=== PATIENT | female | born 1950 ===

== ENCOUNTER 2025-02-13 00:13 | Inpatient (IN) | payer OTHER, SELFPAY ==
[2025-02-12] VITALS (31 sets, daily range): BP systolic 159–259; BP diastolic 64–119
--- NOTE | 2025-02-12 19:38 | ED.GENMED ---
History of Present Illness
General
Chief Complaint: Fainting/Passed Out
Source: patient and family
Time Seen by Provider: 02/12/25 19:20
History of Present Illness
History of Present Illness:
74-year-old female presents the emergency department after having a syncopal episode just prior to presentation. She was feeling perfectly well when she took a shower today. She got out of the shower and was starting to dress herself when she felt
nauseous and tired. Her next memory is waking up on the floor. Her daughter, who is bedside in whom I also interviewed states that she heard her mother fall and ran to the bathroom. Within a second or 2 she regained consciousness. There was no
tonic-clonic activity noted and no incontinence. Patient was fully oriented upon awakening. Patient denies hitting her head. She denies any complaints at this time with the exception of feeling slightly tired. She denies headache, neck pain,
chest pain, palpitations, dyspnea, abdominal pain, dizziness, fever, chills, or other complaints.
Past History
Past History
ED Past Medical History: HTN, Hypercholesterolemia and Other (Anemia)
Social History
Tobacco: Non-smoker
Alcohol: None
Drug: None
Living: with family
Phy Exam
Physical Exam
Physical Exam:
GENERAL: Alert , in no apparent distress
EYE: pupils equal and reactive, EOMI, no nystagmus, no photophobia
NECK: Supple, no significant adenopathy, no midline tenderness.
ENT: o/p clr, mmm, no signs of head or facial injury noted on exam, no gordon, no raccoon.
CARDIAC: Regular rate and rhythm .
LUNGS: Clear breath sounds bilaterally, no acute respiratory distress, no wheezes/rales/rhonchi
ABDOMEN: Soft, without focal tenderness, no r/g, no cvat
NEUROLOGICAL: Alert and oriented, no focal neuro deficits, motor 5 out of 5, sensory intact, cranial nerve II to XII intact, lejrrn-[id number]-yels normal
SKIN: Warm and dry, skin intact.
MUSCULOSKELETAL: No edema, well perfused.
PSYCH: Normal and appropriate interaction.
Course
Orders/Labs/Results
Orders:
Orders
02/12/25 19:18
EKG [Electrocardiogram (*1)] Urgent
Reason for Study: Syncope
EKG- Treatment ONCE
02/12/25 19:37
Cardiac Monitoring- Treatment ONCE
02/12/25 19:38
CT Head W/o Iv Contrast Urgent
Comment:
Reason For Exam: syncope
02/12/25 20:12
Complete Blood Count/No Diff Urgent
Troponin I Urgent
02/12/25 20:52
Comprehensive Metabolic Panel Urgent
02/12/25 21:32
Electrocardiogram (*1) Urgent
Reason for Study: Other
Other Reason for Exam: syncope
EKG- Treatment ONCE
Nitroglycerin 100 mg/250 ml [Nitroglycerin Premix] 100 mg in 250 ml IV NOW
Initial dose in mcg/min, then titrate:: 5
Titrate to keep:: SBP < 160 mmHg
Titrate by mcg/min:: 5 mcg/min, may increase by 10 mcg/min if dose > 20 mcg/min
Frequency of titrations (minutes):: every 3-5 minutes
Maximum dose in mcg/min:: 200
Begin to taper infusion when:: Remained at goal for 2hrs
Taper by mcg/min:: 5 mcg/min
Frequency of taper (minutes) if patient maintains goal:: 30
Taper to off?: Yes
If infusion off & no longer maintaining goal:: Contact Provider
02/12/25 21:33
US Legs, Bilateral [US Periph Venous LOWER Ext Jermaine] Urgent
Comment:
Reason For Exam: syncope, consideration of dvt
02/12/25 22:00
D-Dimer Urgent
PTT Urgent
Comment: ADD ON
Urinalysis Reflex To Culture Urgent
Date Specimen was Collected: 02/12/25
Time Specimen was Collected: 21:53
Urine Microscopic Reflex Cult Urgent
Urine Culture Urgent
MAGUI Source: U
Specimen Description:
Date Specimen was Collected: 02/12/25
Time Specimen was Collected: 21:53
02/12/25 22:56
Heparin 5,200 units IV NOW STA
02/12/25 23:00
Heparin 44957 Units/250 ml 25,000 units in 250 ml IV PER PROTOCOL
Weight to be used for heparin protocol in kilograms (kg):: 65.3
Protocol:: DVT/PE
PTT Goal Range to be used:: PTT 73 to 111 seconds
Order type:: Initial
INITIAL Infusion Dose (UNITS/KG/hr) & then follow protocol:: 18 units/kg/hr
Infusion Dose in UNITS/hr & then follow protocol (UNITS/hr):: 1,200
INFUSION RATE in mL/hr & then follow protocol (mL/hr):: 12
For DVT/PE algorithm, re-bolus for low PTT?: Yes
PTT less than or equal to 64 seconds:: Re-bolus 80 units/kg (max 10,000units). Increase by 300 units/hr
(+ 3mL/hr)
PTT 64.1 to 72.9 seconds:: Re-bolus 40 units/kg (max 5,000 units). Increase by 100 units/hr
(+ 1mL/hr)
PTT 73 to 111 seconds:: Target Range. No change in rate.
PTT 111.1 to 130.9 seconds:: Decrease rate by 100 units/hr (- 1 mL/hr)
PTT 131 to 199.9 seconds:: HOLD for 1 hr. Then decrease by 200 units/hr (- 2mL/hr)
PTT greater than or equal to 200 seconds:: HOLD for 2 hrs & Notify Provider. Then decrease by 300 units/hr
(- 3mL/hr)
Lab follow-up:: Each change, PTT q6h until 2 consecutive are therapeutic. Then
PTT daily.
02/12/25 23:05
Troponin I Urgent
02/12/25 23:35
Heparin 5,200 units IV PRN PRN
02/12/25 23:36
Heparin 2,600 units IV PRN PRN
02/12/25 23:40
Insulin Aspart [NOVOLOG vial] 5 units SC NOW STA
Insulin Glargine Lantus [Lantus] 15 units Subcutaneous Insulin Syringe [Syringe-Insulin] 0 unit SC ONCE
02/12/25 23:45
Admit/Transfer Patient As Directed
Co-Sign Provider:
Level of Care: Inpatient admission
Assign to:: ICU
Physician / Group: noa
Diagnosis: hypertensnive emergency
Reason for Hospitalization: HTn
NSTEMI
Expected length of stay greater than two midnights?: Yes
ELOS- Estimated Length of Stay in days: 3
I certify the patient meets the requirements for IP care: Yes
Nicardipine 40 mg/200 ml [Cardene] 40 mg in 200 ml IV PER PROTOCOL
Initial dose in mg/hr, then titrate:: 5
Titrate to keep:: SBP 140 - 160 mmHg
Titrate by mg/hr:: 2.5 mg/hr
Frequency of titrations (minutes):: 5-15 minutes
Maximum dose in mg/hr:: 15
Begin to taper infusion when:: Remained at goal for 2hrs
Taper by mg/hr:: 2.5 mg/hr
Frequency of taper (minutes) if patient maintains goal:: every 15-30 minutes
Taper to off?: Yes
If infusion off & no longer maintaining goal:: Contact Provider
02/12/25 23:46
Code Status As Directed
Resuscitation Status: Full Code
PRN Pain Medication Management As Directed
May give lesser potent ordered pain med per pt: Yes
preference::
Protocol:: Medication orders for pain may be administered in a
manner that supports deferring to patient preference
when the pt is:
- Requesting an ordered lesser potent pain medication.
Least to most potent pain medications are defined
as: acetaminophen < NSAID < tramadol < opioids
(morphine, oxycodone, hydromorphone).
- Requesting a lesser dose of the same medication IF
ORDERED.
- Requesting a less intrusive route of administration
if both routes are prescribed by the provider (PO <
IV).
02/12/25 23:58
Sodium Zirconium Cyclosilicate [Lokelma] 5 gram PO NOW STA
02/13/25 00:57
Acetaminophen [Tylenol] 650 mg PO Q4HPRN PRN
Bisacodyl [Dulcolax] 10 mg RECTAL [id number] PRN
Dextrose 50%-Water [Dextrose 50% Syringe] 12.5 grams IV [id number] PRN
Docusate W/Senna [Senokot-S] 1 tablet PO BIDPRN PRN
Glucagon [GlucaGen] 1 mg IM PRN PRN
Polyethylene Glycol Powder [Miralax] 17 grams PO DAILYPRN PRN
02/13/25 00:57
Echo 2D MMode Color/Doppler Routine
Reason for Study: sob
CARDIOLOGY CONSULT Routine
Consulting Provider: Micha Lazcano
Was physician already notified: No
Reason for consult: HTN urgency, trop elevated
Consult Notification Routine
Specialty to Notify: Cardiology
Date consulting provider notified: 02/13/25
Time consulting provider notified: 09:00
Notified:: Service
Rn Oncology Clinical Consult Routine
Consulting Provider: Renetta Bojorquez
Was physician already notified: Yes
VQ Scan [NM Lung Scan Vent/perf ] Routine
Comment:
Reason For Exam: sob
Heparin Protocol- PTT Orders As Directed
PTT per Heparin protocol: -Obtain CBC and baseline PTT - if not already collected.
-Obtain PTT 6 hours from start of infusion. Then, every 6 hours until 2 consecutive
PTT's are therapeutic. Then, PTT Daily.
-With each rate change, obtain PTT every 6 hours until 2 consecutive PTT's are
therapeutic. Then, PTT Daily.
Activity As Directed
Activity Level: As Tolerated
Bedside Glucose Monitoring As Directed
Frequency: AC&HS
Additional Instructions:: Change to q6h if pt on TPN, tube feeding or not eating
Neurological Checks As Directed
Frequency: Per unit guidelines
Notify MD As Directed
Notify physician if: PTT is greater than or equal to 200.
Vital Signs As Directed
Frequency: Per unit guidelines
Ot Eval And Treat Routine
Pt Eval And Treat Routine
Activity Level: As Tolerated
02/13/25 04:56
Basic Metabolic Panel IN AM
Cardiovascular Evaluation IN AM
Complete Blood Count/No Diff IN AM
Glycohemoglobin (HgbA1c) IN AM
02/13/25 06:00
EKG [Electrocardiogram (*1)] IN AM
Reason for Study: Chest Pain
2000 calorie (17 carb) Diabetic
At Your Request: Full Participation
02/13/25 07:30
Insulin Aspart Corrective Low [Novolog Flexpen-Low Resistance] See Protocol SC AC
02/13/25 08:00
Carvedilol [Coreg] 12.5 mg PO BID
Rosuvastatin Calcium [Crestor] 20 mg PO DAILY
02/14/25 06:00
Basic Metabolic Panel IN AM
Complete Blood Count/No Diff IN AM
Complete Blood Count/No Diff Q2D
Comment: notify provider: Platelet count < 130,000 or decrease by 50% from baseline
02/15/25 06:00
Basic Metabolic Panel IN AM
Complete Blood Count/No Diff IN AM
02/16/25 06:00
Basic Metabolic Panel IN AM
Complete Blood Count/No Diff IN AM
Complete Blood Count/No Diff Q2D
Comment: notify provider: Platelet count < 130,000 or decrease by 50% from baseline
02/18/25 06:00
Complete Blood Count/No Diff Q2D
Comment: notify provider: Platelet count < 130,000 or decrease by 50% from baseline
02/20/25 06:00
Complete Blood Count/No Diff Q2D
Comment: notify provider: Platelet count < 130,000 or decrease by 50% from baseline
02/22/25 06:00
Complete Blood Count/No Diff Q2D
Comment: notify provider: Platelet count < 130,000 or decrease by 50% from baseline
02/24/25 06:00
Complete Blood Count/No Diff Q2D
Comment: notify provider: Platelet count < 130,000 or decrease by 50% from baseline
02/26/25 06:00
Complete Blood Count/No Diff Q2D
Comment: notify provider: Platelet count < 130,000 or decrease by 50% from baseline
02/28/25 06:00
Complete Blood Count/No Diff Q2D
Comment: notify provider: Platelet count < 130,000 or decrease by 50% from baseline
Abnormal Lab Results
02/12/25 02/12/25 02/12/25
20:12 20:52 22:00
RBC 3.85 L 10^6/uL
(4.20-5.40)
Hgb 11.2 L g/dL
(12.0-16.0)
Hct 32.7 L %
(37.0-47.0)
D-Dimer 1.06 H ug/mlFEU
(0.00-0.50)
Potassium 5.6 H mmol/L
(3.5-5.1)
BUN 30 H mg/dl
(7-17)
Creatinine 2.1 H mg/dL
(0.6-1.0)
Glucose 312 H mg/dl
(70-99)
AST 62 H U/L
(14-36)
ALT 49 H U/L
(0-35)
Troponin I 0.095 H* ng/ml
Leukocyte Esterase Rfl 1+ A
(Negative)
Urine Bacteria (Reflex) Few A
(Negative)
Urine Glucose 3+ A
(Negative)
Urine Albumin (Reflex) 3+ A
(Neg - Trace)
POC Glucose
02/12/25 02/12/25
23:05 23:50
RBC
Hgb
Hct
D-Dimer
Potassium
BUN
Creatinine
Glucose
AST
ALT
Troponin I 0.158 H* D ng/ml
Leukocyte Esterase Rfl
Urine Bacteria (Reflex)
Urine Glucose
Urine Albumin (Reflex)
POC Glucose 276 H mg/dl
(70-99)
02/12/25 20:12
02/12/25 20:52
Vital Signs
Initial and Last Documented VS:
Initial Vital Signs
Temp Pulse Resp Pulse Ox
97.6 F 87 22 100
02/12/25 19:20 02/12/25 19:20 02/12/25 19:20 02/12/25 19:20
Last Documented Vital Signs
Temp Pulse Resp BP Pulse Ox
97.6 F 64 11 114/62 96
02/13/25 08:21 02/13/25 10:26 02/13/25 07:00 02/13/25 10:26 02/13/25 07:00
*Pulse Oximetry
SaO2: 99
Oxygen Mode of Delivery: Room air
Patient hypoxic: no
*Critical Care Note
Total Time (30-74mins, 75-104mins- exclusive of procedures): 35
Update Note
Update Note:
Patient presents to the Emergency Department with __syncope
Number and Complexity of Problems Addressed at the Encounter
� Chronic conditions affecting care:
� Acute Exacerbation and/or Progression of Chronic Illness:
� Differential Diagnosis includes: But not limited to vasovagal events, seizure, dehydration, electrolyte abnormality, etc. etc. etc.
Amount and/or Complexity of Data to be Reviewed and Analyzed
� I performed an independent evaluation of and my interpretation is:
EKG: Read by me, normal sinus rhythm with bigeminy, no acute ischemia. Repeat ECG at 2130, normal sinus rhythm, LVH, no acute ischemia noted.
CT:No acute intracranial abnormality noted.
Mild atrophy.
Mild periventricular small vessel ischemic disease.
Old left thalamic lacunar infarct
Xrays:
Laboratory Studies: Renal insufficiency, elevated D-dimer right, hyperglycemia, troponin abnormally elevated
Other:
� Review of other/old records reveals:
� Clinical information was obtained by an independent historian: Sister who is bedside. I also called and spoke to patient's daughter, Abbie, who is an ER physician.
� Prescriptions/Medications Considered but not given:
� Further testing considered but not performed:Consideration of CT to r/o pe, however given poor GFR, this exam deferred.
Risk of Complications and/or Morbidity or Mortality of Patient Management
� Social determinants of health affecting care:
� Discussion with other providers (PCP, Hospitalists, Consultants, etc):
� Escalation of care including admission/observation vs risk of discharge considered: Elevated troponin noted. ECG being repeated now. Upon reassessment, patient noted to be quite hypertensive. She denies any symptoms such as
chest pain, dyspnea, headache, etc. Nitroglycerin drip started. Patient is remarkably symptom-free despite her syncopal event and elevated troponin. Consideration for PE is the etiology however unable to perform CT based on her poor GFR. There
are some bilateral lower extremities ordered. Consideration for heparin drip in anticipation of VQ scan which is likely to be available in the morning. Events could be related to hypertensive urgency.
11:13 PM patient now on a nitroglycerin drip with some improvement in her blood pressure measurements. I have reexamined the patient multiple times, and she continues to deny any symptoms. Ultrasound bilateral lower extremity pending results.
D-dimer noted to be elevated. Although patient denies dyspnea, she did have a syncopal event with troponin elevation, consideration for PE, heparin drip started. Case discussed with hospitalist for admission. She will need to be closely observed
overnight likely echo in a.m. Case was again discussed with patient's daughter in great detail and second ECG was transmitted to her via text for her review as well.
ED Attending Note
-
Portions of this chart may have been created with voice recognition software.� Occasional wrong word or��sound alike� substitutions may have occurred due to the inherent limitations of voice recognition software.
Discharge Plan
Departure
Patient Disposition: Admit
Date of Disposition: 02/12/25
Time of Disposition: 23:10
Presentation/result/management discussed w/ accepting MD/DO: Hospitalist
Condition: Fair
Discharge Problem:
Syncope
Interventions
Interventions:
*Risk Screen - Suicide Last Done: 02/13/25 01:26
*General Assessment Last Done: 02/12/25 19:20
*Neglect/Abuse Screening Last Done: 02/12/25 19:20
*ED- Fall Risk Assessment Last Done: 02/13/25 01:17
*ED COVID-19 Vaccine History Last Done: 02/13/25 01:26
*Nursing Disposition Last Done: 02/13/25 01:17
ED- Cardiac Assessment Last Done: 02/12/25 19:27
ED- Neurological Assessment Last Done: 02/12/25 19:27
Discharge Date and Time
Discharge Date/Time: 02/13/25 01:19
[2025-02-12 20:17] LABS: Hematocrit 32.7 % (37.0-47.0); Hemoglobin 11.2 g/dL (12.0-16.0); Mean Corp Hgb Conc. 34.3 g/dL (33.0-37.0); Mean Corpuscular Volume 84.9 fL (81.0-99.0); Platelet Count 201 10^3/uL (130-400); Red Cell Dist. Width 13.5 % (11.5-14.5)
[2025-02-12 20:45] LABS: Troponin I 0.095 ng/ml
[2025-02-12 21:21] LABS: ALT (SGPT) 49 U/L (0-35); AST (SGOT) 62 U/L (14-36); Albumin 4.4 g/dl (3.5-5.0); Alkaline Phosphatase 126 U/L (38-126); Blood Urea Nitrogen 30 mg/dl (7-17); Calcium 9.1 mg/dl (8.4-10.2); Carbon Dioxide 27 mmol/L (22-30); Chloride 104 mmol/L (98-107); Estimated Creatinine Clearance 18 ml/min; Glucose 312 mg/dl (70-99); Potassium 5.6 mmol/L (3.5-5.1); Sodium 137 mmol/L (135-145); Total Protein 7.6 g/dl (6.3-8.2); eGFR 24.27
[2025-02-12] MEDS: NITROGLYCERIN PREMIX 250 IV (21:53)
[2025-02-12 22:05] LABS: Urine Character Clear (Clear)
[2025-02-12 22:11] LABS: Urine Squamous Cell 0-2 /LPF (Few)
[2025-02-12 22:12] LABS: Urine Red Blood Cell 0-2 /HPF (0-2)
[2025-02-12 22:18] LABS: D-Dimer 1.06 ug/mlFEU (0.00-0.50)
[2025-02-12 23:09] LABS: APTT 33.6 Sec (23.4-35.0)
--- NOTE | 2025-02-12 23:21 | HPS.HSE ---
Family Physician
-
Family Physician: Bernadette Yancey, DO
Chief Complaint
-
syncope
History of Present Illness
74-year-old with past medical history for type 2 diabetes, hypertension, hyperlipidemia, CKD presented to us with syncopal episode at home. Patient took shower. As she was getting dressed in the bathroom, she felt nauseous and remember anything
afterwards. Daughter heard the fall. She found mother on the floor. She was passed out for 5 to 10 seconds. Patient denied any prior headache dizzy. Fever chills cough congestion. Patient denied any chest pain or short of breath. Patient
denied any abdominal pain, nausea, vomiting or diarrhea. Patient denied dysuria hematuria.
Upon arrival she was noted to have elevated Trope, elevated D-dimer. Patient was also noted hypertensive urgency. Initiated on nitro as well as heparin. Admitting for further management
Medical History
Past Medical History
Past Medical History: Reports Other
Additional Past Medical History:
Cervical radiculopathy
Hypertension
Fatty liver
Lower back pain
Hyperlipidemia
Diabetic neuropathy
Type 2 diabetes
Bilateral carpal tunnel syndrome
Past Surgical History: Reports None
Social History
Tobacco: Non-smoker
Alcohol: None
Drug: None
Living: With Family
Family History
Family History: Not pertinent
Allergies / Home Medications
Allergies reflects when Allergies were last updated in [facility].
Home Medications with original date entered in [facility]
Allergy/Medication List:
Allergies
Allergy/AdvReac Type Severity Reaction Status Date / Time
No Known Allergies Allergy Verified 02/12/25 19:19
Review of Systems
-
Constitutional: Reports No Symptoms
EENT: Reports No Symptoms
Respiratory: Reports No Symptoms
Cardiac: Reports No Symptoms
Abdomen/GI: Reports No Symptoms
: Reports No Symptoms
Musculoskeletal: Reports No Symptoms
Skin: Reports No Symptoms
Neurological: Reports No Symptoms
Endocrine: Reports No Symptoms
Hematologic/Lymphatic: Reports No Symptoms
Psych: Reports No Symptoms
Physical Exam
Vital Signs
Vital Signs
Temp Pulse Resp BP Pulse Ox
97.6 F 66 15 159/83 96
02/12/25 19:20 02/12/25 22:55 02/12/25 22:55 02/12/25 22:55 02/12/25 22:55
Physical Exam
General: Well Developed, Well Nourished and No Apparent Distress
HEENT: NormoCephalic, Moist mucous membranes and Atraumatic
Respiratory: Clear
Cardiac: S1/S2 and Regular Rhythm; No Murmur or Rub
GI: Soft, Non Tender, Non Distended and Normal Bowel Sounds; No Organomegaly
Rectal: Deferred by Provider
Musculoskeletal: No Clubbing, No Cyanosis and No Edema
Skin: No Rash
Neuro: AO x 3 and Nonfocal/grossly intact
Psych: Calm
Laboratory Results
-
02/12/25 20:12
02/12/25 20:52
Laboratory Results
APTT Cancelled 02/12/25 22:56
Total Bilirubin 0.5 mg/dl (0.2-1.3) 02/12/25 20:52
AST 62 U/L (14-36) H 02/12/25 20:52
ALT 49 U/L (0-35) H 02/12/25 20:52
Alkaline Phosphatase 126 U/L (38-126) 02/12/25 20:52
Troponin I 0.095 ng/ml H* 02/12/25 20:12
Data Reviewed
-
CT Scan: Report Reviewed by me
Ultrasound: Report Reviewed by me
Lab Data: Labs Reviewed by me
Impression/Plan
-
# Hypertensive urgency
# Syncope likely secondary to hypertensive urgency
# Elevated troponin likely demand ischemia secondary to hypertensive/rule out NSTEMI
- Denied any chest pain
- EKG no acute ischemia, sinus rhythm with PVCs and pattern of bigeminy.
- Continue to trend troponin EKG
- Initiated on Cardene drip
- Head CT with no acute findings
- Hold lisinopril, Coreg continued
- PT consulted
-obtain ECHo
-cardiology consulted
# Elevated D-dimer concern for PE
-D-dimer 1.06
- Unable to obtain CT due to GFR
- IV heparin continued
- Obtain VQ scan
- Ultrasound of lower extremities negative
# Hyperkalemia/acute kidney injury likely chronic baseline unknown
- K5.6, creatinine 2.1
-monitor BMP
-lokelma in ER
# Type 2 diabetes with hyperglycemia
- Blood sugar in 300s
- Sliding scale, CHO diet
- Lantus 15 units continue
- Sliding scale
- Hold metformin
# Chronic transaminitis
- AST 62, ALT 49
- Patient denied abdominal pain
- Continue to monitor
# Hyperlipidemia
- Statin continued
# DVT prophylaxis
- On heparin
# CODE STATUS
- Full code
[2025-02-12 23:39] LABS: Troponin I 0.158 ng/ml
--- NOTE | 2025-02-12 23:42 | W.PN.UPDATE ---
Update Note
Progress Note Update
Patient seen and congestion with LOAF COUNTER. I agree with the findings on history and physical. I concur with assessment plan unless stated otherwise.
Briefly, this is a 74-year-old with past medical history of CKD with baseline creatinine that is unknown but was around 1.5 on last check several years ago, hypertension, insulin-dependent diabetes presenting to the emergency department following a
syncopal episode.
Patient walked out of the shower and then immediately felt nauseous and then collapsed to the floor. She does not remember the actual collapse. When she came back to she said that this lasted for about 10 seconds. There was no postictal
depression. There was no loss of bladder or bowel continence. There was no tonic-clonic activity. She is now alert oriented and shows no focal logical deficits. She denied having any chest pain. She denies any vomiting or diarrhea. She denies
any shortness of breath. Patient denies any history of chest pain, exertional dyspnea palpitations or lightheadedness.
On arrival in the emergency department she was hypertensive and blood pressure remains in the 200s systolic, she is afebrile with a pulse of 66. ECG shows sinus rhythm at a rate of 90 with occasional PVCs and T wave inversions in the lateral leads.
Initial troponin was 0.09 with repeat troponin of about 0.12.
CT of the head was negative, ultrasound was negative for DVT but the D-dimer is elevated. CBC is unremarkable. Electrolytes shows a potassium of 5.6 but otherwise unremarkable. BUN and creatinine at 30 and 2.1.
Hypertensive emergency -patient arriving with systolic blood pressures in the 200s and following a syncopal episode. She has elevated troponin. Picture is consistent with hypertensive emergency. CT of the head was negative. She has no focal
deficits on examination.
- Admit to ICU
- Failure of blood pressure control on nitroglycerin, will start nicardipine drip
- Continue Coreg
- Hold lisinopril
ACS -ECG shows some minor T wave changes in the inferior leads. Otherwise nonischemic. There was no obvious arrhythmia and he has no long QT.
- Repeat troponin is elevating, suspect possibility of ventricular arrhythmic episode versus acute coronary syndrome
- Aspirin 324
- Heparin drip started
- Echocardiogram in a.m.
-Lipid panel and A1c
- Currently chest pain-free
- BP control to target SBP less than 160
- Cardiology consult
Syncope -abrupt soft collapsed to the floor with loss of consciousness lasting for about 10 seconds. Elevated troponins concerning for arrhythmia which could have been induced by an ischemic process versus a primary arrhythmia
- Orthostatic vital sign
- Telemetry monitoring for the next 24-hour
- Echo as above
- Condition testing per cardiology
CKD/renal dysfunction w/ mild hyperkalemia to 5.6
- Unknown baseline, hold lisinopril for now
- Obtain most recent outpatient labs
- give lokelma
- correct hyperglycemia with insulin
Insulin-dependent diabetes -hyperglycemic to 300
- Continue sliding scale insulin
- Continue Lantus
- Check A1c
Elevated D-dimer - Likely false positive for PE.
- neg peripheral u/s for DVT
- checking V/Q scan
- on heparin gtt
DVT prophylaxis�on heparin
CODE STATUS�full code
[2025-02-12 23:52] LABS: Glucose - Point of Care 276 mg/dl (70-99)
[2025-02-12] MEDS: HEPARIN 5200 UNITS IV (23:55)
[2025-02-13] VITALS (62 sets, daily range): BP systolic 114–239; BP diastolic 50–94; BMI 29.7; BMI 30.6
[2025-02-13] MEDS: CARDENE 200 IV (00:04)
[2025-02-13] MEDS: NOVOLOG vial 5 UNITS SC (00:06)
[2025-02-13] MEDS: HEPARIN 25000 UNITS/250 ML IV (00:07)
[2025-02-13] MEDS: LOKELMA 5 GRAM PO (00:20)
[2025-02-13] MEDS: LANTUS 0.15 UNITS SC ×2 (00:24→22:11)
[2025-02-13 02:09] LABS: Glucose - Point of Care 196 mg/dl (70-99)
--- NOTE | 2025-02-13 02:14 | PTCARENOTE ---
Pt received from ED to ICU [id number] approx 01:00, accompanied by daughter. Pt Ox3, pleasant and cooperative. SR, HR 70s. Cardene gtt continues, received at 2.5mg/hr, titrated to 5mg/hr to maintain SBP 140-160. RA, breath sounds clear, pulse ox 96-100%.
Abdomen round/soft, +bowel sounds. No BM or urine output at this time. Skin intact. Safe environment maintained, call burton within reach.
[2025-02-13] MEDS: DILAUDID 0.5 MG IV (04:45)
[2025-02-13 05:09] LABS: Hematocrit 34.0 % (37.0-47.0); Hemoglobin 11.2 g/dL (12.0-16.0); Mean Corp Hgb Conc. 32.9 g/dL (33.0-37.0); Mean Corpuscular Volume 87.0 fL (81.0-99.0); Platelet Count 221 10^3/uL (130-400); Red Cell Dist. Width 13.2 % (11.5-14.5)
[2025-02-13 05:19] LABS: INR 1.14; PT 14.9 Sec (11.4-14.6)
[2025-02-13 05:31] LABS: Carbon Dioxide 24 mmol/L (22-30)
[2025-02-13 05:34] LABS: APTT > 200 Sec (23.4-35.0)
[2025-02-13 05:42] LABS: Blood Urea Nitrogen 29 mg/dl (7-17); Calcium 9.2 mg/dl (8.4-10.2); Chloride 110 mmol/L (98-107); Estimated Creatinine Clearance 18 ml/min; Glucose 95 mg/dl (70-99); HDL Cholesterol 50 mg/dl; LDL Cholesterol, Calculated 218 mg/dl; Magnesium 1.8 mg/dl (1.6-2.3); Potassium 4.4 mmol/L (3.5-5.1); Sodium 141 mmol/L (135-145); Troponin I 0.354 ng/ml; Very Low Density Lipoprotein 21 mg/dl (0-30); eGFR 24.27
--- NOTE | 2025-02-13 05:43 | PTCARENOTE ---
Pt c/o severe lower leg pain and muscle cramping. Provider notified, x1 order for IVP dilaudid. Pt stated improvement.
PTT >200, heparin placed on hold and provider made aware per protocol.
--- NOTE | 2025-02-13 07:00 | CON.INTV ---
Addendum entered and electronically signed by Renetta Bojorquez, 02/13/25 12:37:
Off cardene, doing well
Planning for cath per cards
Can transfer to IVU if doing well, we will sign off upon transfer
Original Note:
Consultation
Consultation Request
Date/Time Consultation Requested: 02/13/25
Date/Time Consultation Performed: 02/13/25
Performing Provider: Maryellen
Reason for Consultation: NSTEMI
Medical History
-
History of Present Illness:
Patient is a 74-year-old female with previous history of diabetes, hypertension, chronic kidney disease presenting with syncopal episode at home, found by daughter on the floor. Notably she was down for 5 to 10 seconds, with loss of consciousness.
On arrival to ER she had elevated troponin and D-dimer. She was noted to be in hypertensive urgency. She was started on nitro and heparin drip. Admitted to ICU for further management.
Past Medical History
Past Medical History: Other (see list below)
Social History
Tobacco: Non-smoker
Alcohol: None
Drug: None
Allergies / Home Medications
Allergies
Allergy/AdvReac Type Severity Reaction Status Date / Time
No Known Allergies Allergy Verified 02/12/25 19:19
Home Medications
�Medication �Instructions �Recorded �Confirmed �Last Taken �Type
carvedilol 12.5 mg tablet (Coreg) 12.5 mg PO BID 02/12/25 02/12/25 Unknown History
insulin glargine 100 unit/mL (3 30 unit SC QPM 02/12/25 02/12/25 Unknown History
mL) subcutaneous pen (Lantus
Solostar U-100 Insulin)
lisinopril 5 mg tablet 5 mg PO DAILY 02/12/25 02/12/25 Unknown History
metformin 1,000 mg tablet 1,000 mg PO BID 02/12/25 02/12/25 Unknown History
rosuvastatin 20 mg tablet 20 mg PO DAILY 08/29/25 08/29/25 Unknown History
Review of Systems
-
History Source: Patient
All other systems: Negative unless noted
Vitals / Labs / Diagnostic Testing
Vital Signs
Temp Pulse Resp BP Pulse Ox
98.4 F 60 9 135/59 95
02/13/25 01:30 02/13/25 06:00 02/13/25 06:00 02/13/25 06:00 02/13/25 05:52
Lab Data
02/13/25 04:56
02/13/25 04:56
Laboratory Results
02/12/25 02/12/25 02/13/25
22:00 22:56 04:56
PT 14.9 H
INR 1.14
APTT 33.6 Cancelled > 200 H*
Diagnostic Testing:
Physical Exam
-
HEENT: Normocephalic, Anicteric and Moist Mucous Membranes
Cardiovascular: S1/S2 and Regular Rhythm
Respiratory: Clear and Non-Labored Respirations
GI: Soft, Non Distended and Non Tender
Neurology: Awake, Alert, Oriented and No Motor Deficits
Skin: Warm, Dry and Good Color
General: Comfortable and Other (NAD)
Assessment
-
Patient is a 74-year-old female with previous history of diabetes, hypertension, chronic kidney disease presenting with syncopal episode at home, found by daughter on the floor. Notably she was down for 5 to 10 seconds, with loss of consciousness.
On arrival to ER she had elevated troponin and D-dimer. She was noted to be in hypertensive urgency. She was started on nitro and heparin drip. Admitted to ICU for further management.
Hypertensive urgency on nitro drip
Elevated troponin, rule out NSTEMI, on IV heparin
Syncopal episode
Elevated D-dimer
Hyperkalemia
ANGELY, creatinine 2.1
Anemia, mild
Conditions present prior to admission
Type 2 diabetes
Chronic transaminitis/Fatty Liver
Hypertension
Hyperlipidemia
Chronic kidney disease
Cervical Radiculopathy
Urine Proteinuria
Low Back Pain/DISC DIS LUMBAR
HNP LS spine-EDGAR
bilat carpal tunnel syndrome (2007)
ervical and LS herniated discs with radicular pain LUE and RLE-epidural injections intermittent (1996)
Arthritis
s/p cardiac Cath - [facility] 10/2016
Plan
No current signs of metabolic encephalopathy or MS changes/following commands
Has pain in her LE, cramping
Pain/sedation: PRN PO meds
RASS goals: 0
Hemodynamically stable, not requiring pressors.
Cardiac history reviewed--HTN, now on cardene, wean to off
Await cardiac eval for titration of home meds
No prior ECHO for review
Monitor on telemetry
Oxygen needs: stable on RA
Prior history of lung disease: none
Supplemental O2 as indicated to maintain sats > 89%
CXR/CT reviewed indicating no acute disease
VQ scan obtained in ER for d-dimer but this is likely age adjusted--can likely d/c
Duplex negative
Diet advancement
Aspiration precautions, HOB > 30 degrees
Speech therapy eval can be considered if at elevated risk
GI prophylaxis if indicated
ANGELY present, CKD history
Unclear cause, consider renal eval, follow BMPs
Void trials
Follow urine output, critical I/Os
Replete electrolytes as needed
No signs/symptoms suspicious for infectious etiology at this time
Observe off antibiotics for now
Follow fever trend, WBC count
CBC stable, no signs of bleeding or coagulopathy.
DVT prophylaxis as assessed based on risk, including mechanical SCDs
Can transfuse if indicated for Hb <7, plt < 10
INR WNL
No prior h/o thyroid disease
H/o diabetes, can continue on home meds, SS for coverage
HbA1c 9.0--poor control
Would consult DM RADIOLOGY SCHEDULER for education/management
If doing well and off cardene, can transfer to floors. We will sign off upon transfer.
Diagnostic Data
Chest X-Ray: no acute disease
CT Scan: HCT 02/12/25- No acute intracranial abnormality noted. Mild atrophy. Mild periventricular small vessel ischemic disease. Old left thalamic lacunar infarct
US Legs: 02/12/25-No sonographic evidence for lower extremity venous thrombosis.
Echo:
PFT's:
Reports and relevant images were personally reviewed.
Critical Care time 50 mins -- The patient is admitted for acute critical illness for the treatment of vital organ failure and/or prevention of further life-threatening conditions. Total care includes time spent in review of history, physical exam,
medications, hemodynamic/ventilator parameters, laboratory data, imaging and discussion with house staff, pharmacy, respiratory therapy, adjuster and inspector, and nursing.
[2025-02-13 07:47] LABS: Glucose - Point of Care 99 mg/dl (70-99)
[2025-02-13] MEDS: NOVOLOG FLEXPEN-MODERATE RESISTANCE SC ×3 (08:45→18:20)
[2025-02-13 08:54] LABS: Glycohemoglobin (HgbA1c) 9.0 % (4.0-5.6)
[2025-02-13] MEDS: COREG 12.5 MG PO ×2 (09:01→10:26)
[2025-02-13] MEDS: CRESTOR 20 MG PO (09:01)
--- NOTE | 2025-02-13 09:15 | PTCARENOTE ---
Rec'd pt at 0800 awake alert and oriented resting in bed. Daughter with pt at the bedside. Overall states she is feeling better with the exception of leg cramps which she states are back and rates them at a 10. Dr. Paula updated to order something
stronger than Tylenol for them. Speech is clear. JACOB. Denies dizziness or headache. Skin is bullard wm and dry. Respirs are shallow but non labored. BS are sl decreased at the bases with few base crackles. O2 sats on RA are 95%. Monitor SR with isolated
PVC's. AM ECG done. Denies chest pain. + pulses. Tr LE edema. VS as documented. Rec'd pt on IV Cardene at 2.5 mg with goal to keep sys BP 140-160. Heparin gtt which had been on hold for PTT restarted at 0830 at 900 units/hr via R arm IV Site. Abd
is soft with + BS. Assisted on to the BSC for yellow urine. IV's infusing via 2 R arm IV sites Cardene R upper arm and Heparin R forearm-sites wnl. Plan of care reviewed with pt and call burton in reach. Breakfast ordered.
--- NOTE | 2025-02-13 09:16 | CON.CAR ---
Addendum entered and electronically signed by Micha Lazcano MD 02/13/25 11:24:
I saw and evaluated the patient, and I provided the substantive portion of the medical decision making.
I reviewed and agree with the note by FATOU Munoz and it accurately reflects our care.
I personally performed the medical decision making of the this encounter and my assessment and plan is below:
74 yo with HTN (does not monitor at home), CKD (baseline unknown), mixed hyperlipidemia (LDL over 200 here), EKG from 2017 normal. Admitted after a syncopal episode.
Her EKG shows LVH with repol and evidence of RECENT IMI (hours-weeks), so far EKG is NOT dynamic. Very impressively abnormal EKG. Trop are all abnormal and rising, so far has not peaked, last trop 0.354. D dimer 1.
Imp
High risk syncope
Recent IMI by EKG
Rising troponin concerning for post infarct ACS
The syncope certainly could have been arrhythmic from nita related to IMI or VT related to IA
Hard to know if troponin is from post-infarct NSTEMI or if it is non-ischemic myocardial injury from HTN and syncope
- We will need echo (today)
- Cardiac cath predischarge
- IV heparin/PO ASA
- Watch on tele, serial ekg
- Trend trop to peak
HTN improved
Lipids will need more attention => I told her daughter that first degree relatives should have lipid panels
I updated a daughter in [place] who is an ER MD and her daughter who is at bedside
Original Note:
Consultation
Consultation Request
Date/Time Consultation Requested: 02/13/2025 08
Date/Time Consultation Performed: 02/13/2025 09
Requesting Provider: Leanna LAINEZ
Performing Provider: Dr. Lazcano
Reason for Consultation: syncope, abnormal troponin
Medical History
-
Chief Complaint: syncope,abnormal troponin
History of Present Illness:
74 y/o pt with type 2 DM, HTN, hyperlipidemia, CKD who presented after a syncopal episode. Pt was in the shower and felt fine. When she got out and started to dress she developed some mild nausea. She does not recall feeling CP,SOB or palpitations
at that time. Next thing she recalls is being on the floor and her daughter being there. She did not feel CP, SOB at that time, nausea still there. In ER noted to be hypertensive. Troponin was abnormal and has trended up to 0.354. Pt currently in
IMU on Cardene and IV heparin drips. Currently denies CP and SOB .
Past Medical History
Past Medical History: Other (DM, HTN, hyperlipidemia, CKD fatty liver, diabetic neuropathy)
Past Surgical History: None
Social History
Tobacco: Non-Smoker
Alcohol: None
Living: With Family
Family History
Family History: Reviewed & Not Pertinent
Allergies / Home Medications
Allergy/AdvReac Type Severity Reaction Status Date / Time
No Known Allergies Allergy Verified 02/12/25 19:19
�Medication �Instructions �Recorded �Confirmed �Type
carvedilol 12.5 mg tablet (Coreg) 12.5 mg PO BID 02/12/25 02/12/25 History
insulin glargine 100 unit/mL (3 30 unit SC QPM 02/12/25 02/12/25 History
mL) subcutaneous pen (Lantus
Solostar U-100 Insulin)
lisinopril 5 mg tablet 5 mg PO DAILY 02/12/25 02/12/25 History
metformin 1,000 mg tablet 1,000 mg PO BID 02/12/25 02/12/25 History
rosuvastatin 20 mg tablet 20 mg PO DAILY 02/12/25 02/12/25 History
Review of Systems
-
Constitutional: No Symptoms
Respiratory: No Symptoms
Cardiac: Syncope
: No Symptoms
Skin: No Symptoms
Neurological: No Symptoms
Physical Exam
Vital Signs
Temp Pulse Resp BP Pulse Ox
97.6 F 68 11 159/73 96
02/13/25 08:21 02/13/25 09:01 02/13/25 07:00 02/13/25 09:01 02/13/25 07:00
Lab Results
02/13/25 04:56
02/13/25 04:56
Troponin I Cancelled 02/13/25 12:57
Physical Exam
General: Well Developed, Well Nourished and No Apparent Distress
HEENT: Normocephalic, Anicteric and Moist Mucous Membranes
Respiratory: Clear
Cardiac: S1/S2 and Regular Rhythm
Musculoskeletal: No Edema
Skin: Warm and Dry
Neuro: AO x 3
Psych: Calm
Impression / Plan
-
Syncope:
-Tele with NSR, frequent bigeminy.
-Pt hypertensive urgency on admit
-troponin abnormal peak so far 0.354
-ddimer was elevated, LE US neg for DVT, VQ pending
-check echo
elevated ddimer:
-LE US negative, VQ pending
Possible post infarction ACS with Abnormal troponin:
-Troponin 0.354, con't trend, currently no CP, HU
-asa now
-on IV heparin drip
-EKG with inferior ST abn.
-OP notes indicate prior LHC 11/07/2016 at [facility] with no CAD.
PVC's:
-frequent PVC's bigeminy, asymptomatic
-initially mildly hyperkalemia on admit, but now normalized. Mg 1.8
-on chronic coreg
HTN urgency:
-on IV cardene
-titrate po medications , coreg, lisinopril now held with creat 2.1 and K 5.6 on admit
DM:
-per hospitalists
hyperlipidemia:
-LDL 218 on admit
-increase rosuvastatin to 40mg daily
CKD:
-creat 2.1, does not follow with nephrology as OP
Data Reviewed
-
EKG: Tracing Personally Visualized and interpreted (NSR [address]/Twave abn)
Radiology: Report Reviewed by me (LE U/S: negative DVT)
Labs: Labs Reviewed by me, Discussed with Physician and Discussed with Patient
Old Records: Reviewed
--- NOTE | 2025-02-13 10:15 | PTCARENOTE ---
BP's have been in the 120's syst. As such Cardene gtt turned off currently
[2025-02-13] MEDS: LOW STRENGTH ASPIRIN 324 MG PO (10:26)
--- NOTE | 2025-02-13 10:45 | PTCARENOTE ---
Overall good appetite for breakfast. States leg cramps are still there but tolerable and does not want anything currently. Per orders given Low dose ASA 324 mg and Additional Coreg 12.[address] Lazcano in to see pt and updated.
--- NOTE | 2025-02-13 10:52 | W.PN.HOSP.TC ---
Today's Communication/Plan
-
stable for IVU
Assessment / Plan
Assessment / Plan
HPI: 74-year-old with past medical history for type 2 diabetes, hypertension, hyperlipidemia, CKD presented to us with syncopal episode at home. Patient took shower. As she was getting dressed in the bathroom, she felt nauseous and remember
anything afterwards. Daughter heard the fall. She found mother on the floor. She was passed out for 5 to 10 seconds. Patient denied any prior headache dizzy. Fever chills cough congestion. Patient denied any chest pain or short of breath.
Patient denied any abdominal pain, nausea, vomiting or diarrhea. Patient denied dysuria hematuria.
# Hypertensive urgency
# Syncope likely secondary to hypertensive urgency
Head CT negative
Appreciate cardiology and mill supervisor input, status post Cardene drip
Cardiology has increased her home Coreg to 25 mg
Stable for transfer to the IVU
#Elevated troponin concerning for postinfarct NSTEMI versus nonischemic myocardial injury
Appreciate cardiology input, plan for cardiac catheterization Friday 02/16
Continue IV heparin drip, aspirin 81 mg daily, Crestor increased to 40 mg every afternoon
Echocardiogram requested
#Elevated D-dimer concerning for PE
Unable to get chest CT PE due to ANGELY
Lower extremity Dopplers negative for DVT
Follow-up on V/Q scan
#Acute kidney injury
Creatinine 2.1, baseline 0.8, in 2009
Nephrology following, urine studies, renal bladder ultrasound requested
Hold lisinopril, hold metformin, trend creatinine, no nephrotoxic drugs/NSAIDs
#Hyperkalemia
Resolved, s/p lokelma
#Uncontrolled Type 2 diabetes with hyperglycemia
Hemoglobin A1c 9.0
Patient is on glargine 30 units every afternoon at night
She is currently receiving Lantus 15 units at bedtime while in the hospital
Monitor sugars, she may need Premeal insulin prior to discharge for better glucose control
Hold metformin secondary to ANGELY
# Chronic transaminitis
- AST 62, ALT 49
- mild
# Hyperlipidemia
Crestor increased
DVT prophylaxis - IV heparin drip
Full Code
Total time spent to see the patient on the floor, examine the patient, review data and lab results, discuss treatment plan with patient, nursing staff around 53 minutes.
Physical Exam
General: No acute distress
HEENT: Normocephalic, Atraumatic, EOMI, MMM
Respiratory: Clear to Auscultation bilaterally
Cardiac: Normal S1/S2, Regular Rate and Rhythm
GI: Soft, Nontender, Nondistended, Normal Bowel Sounds
Extremities: No Clubbing, Cyanosis, or Edema
Neuro: Nonfocal/Grossly Intact
Anticipated Discharge: > 48 hours
Subjective/Interval History
-
Date of Service: February 13, 2025
Patient reports feeling better. She denies lightheadedness or dizziness. No chest pain. No fever, no vomiting.
Objective Data
-
Labs:
Laboratory Results
02/12/25 02/12/25 02/13/25
22:00 22:56 04:56
WBC 9.6
Hgb 11.2 L
Hct 34.0 L
Plt Count 221
PT 14.9 H
INR 1.14
APTT 33.6 Cancelled > 200 H*
Sodium 141
Potassium 4.4
Chloride 110 H
Carbon Dioxide 24
BUN 29 H
Creatinine 2.1 H
Glucose 95
Calcium 9.2
02/13/25 02/13/25
13:30 14:30
WBC
Hgb
Hct
Plt Count
PT
INR
APTT Cancelled Pending
Sodium
Potassium
Chloride
Carbon Dioxide
BUN
Creatinine
Glucose
Calcium
Vital Signs:
Vital Signs
Temp Pulse Resp BP Pulse Ox
97.6 F 64 11 114/62 96
02/13/25 08:21 02/13/25 10:26 02/13/25 07:00 02/13/25 10:26 02/13/25 07:00
--- NOTE | 2025-02-13 12:15 | PTCARENOTE ---
Pt remains resting. Admits to some leg cramping but did not want anything currently. States it is tolerable. Denies shortness of breath. O2 sats 95%. Overall assessment is unchanged. Complete CHG bath given- pt did own oral care. Assisted to the BSC
to void then back to bed for ECHO which is being done currently. VS as documented. Remains off Levophed. Call burton in reach.
--- NOTE | 2025-02-13 12:27 | W.CON.NEPH ---
Consultation
-
Date/Time Consultation Requested: 02/13/2025 12:20 PM
Date/Time Consultation Performed: 02/13/2025 12:20 PM
Requesting Provider: Dr. Cavazos
Performing Provider: Dr. Ambriz
Reason for Consultation: Acute kidney injury
Medical History
-
Chief Complaint: Acute kidney injury
History of Present Illness:
The patient is a 72-year-old female with a past medical history of hypertension chronically maintained on carvedilol and lisinopril. She has a history of dyslipidemia and is maintained on statin therapy. She has been maintained on metformin and
insulin for her diabetes. The patient presented to the hospital following a syncopal episode at home. She had suddenly felt nauseous and then appeared to have some amnesia following the syncopal event. She was found on the floor and apparently
had syncopized for 5 to 10 seconds. Upon arrival she was noted to have an elevated troponin level and was initially hypertensive with systolic blood pressure of 258/114 noted in the emergency room. Nephrology was consulted as she had acute kidney
injury with a creatinine elevation up to 2.1 above the former baseline of 0.8 recorded in 2009.
Past Medical History
HTN, DM, Fatty Liver
Cervical radiculopathy
Lower back pain
Hyperlipidemia
Social History
Tobacco: Non-Smoker
Alcohol: None
Drug: None
Family History
Family History: Not Pertinent
Allergies / Home Medications
Allergy/AdvReac Type Severity Reaction Status Date / Time
No Known Allergies Allergy Verified 02/12/25 19:19
�Medication �Instructions �Recorded �Confirmed �Type
carvedilol 12.5 mg tablet (Coreg) 12.5 mg PO BID 02/12/25 02/12/25 History
insulin glargine 100 unit/mL (3 30 unit SC QPM 02/12/25 02/12/25 History
mL) subcutaneous pen (Lantus
Solostar U-100 Insulin)
lisinopril 5 mg tablet 5 mg PO DAILY 02/12/25 02/12/25 History
metformin 1,000 mg tablet 1,000 mg PO BID 02/12/25 02/12/25 History
rosuvastatin 20 mg tablet 20 mg PO DAILY 02/12/25 02/12/25 History
Review of Systems
-
Constitutional: Reports No Symptoms
EENT: Reports No Symptoms
Respiratory: Reports No Symptoms
Cardiac: Reports No Symptoms
Abdomen/GI: Reports No Symptoms
: Reports No Symptoms
Musculoskeletal: Reports No Symptoms
Skin: Reports No Symptoms
Neurological: Reports No Symptoms
Endocrine: Reports No Symptoms
Hematologic/Lymphatic: Reports No Symptoms
Psych: Reports No Symptoms
Physical Exam
Vital Signs
Vital Signs
Temp Pulse Resp BP Pulse Ox
98.0 F 60 11 134/72 94
02/13/25 11:34 02/13/25 10:45 02/13/25 10:45 02/13/25 10:45 02/13/25 10:45
Lab Results
02/13/25 04:56
02/13/25 04:56
WBC 9.6 10^3/uL (4.8-10.8) 02/13/25 04:56
RBC 3.91 10^6/uL (4.20-5.40) L 02/13/25 04:56
Hgb 11.2 g/dL (12.0-16.0) L 02/13/25 04:56
Hct 34.0 % (37.0-47.0) L 02/13/25 04:56
Plt Count 221 10^3/uL (130-400) 02/13/25 04:56
Sodium 141 mmol/L (135-145) 02/13/25 04:56
Potassium 4.4 mmol/L (3.5-5.1) 02/13/25 04:56
Chloride 110 mmol/L (98-107) H 02/13/25 04:56
Carbon Dioxide 24 mmol/L (22-30) 02/13/25 04:56
BUN 29 mg/dl (7-17) H 02/13/25 04:56
Creatinine 2.1 mg/dL (0.6-1.0) H 02/13/25 04:56
eGFR 24.27 02/13/25 04:56
Glucose 95 mg/dl (70-99) 02/13/25 04:56
Calcium 9.2 mg/dl (8.4-10.2) 02/13/25 04:56
Phosphorus 3.5 mg/dl (2.5-4.5) 02/13/25 04:56
Pha-G-Krfhxesnpcz Pept 52656 pg/ml 02/13/25 04:56
Albumin 4.4 g/dl (3.5-5.0) 02/12/25 20:52
Physical Exam
General: AOx3, Nontoxic , NAD
HEENT: PERRL, EOMI, Anicteric, Conjunctivae Clear, Ear/Nose Intact, Hearing Normal, Oropharynx Clear/Moist, Dentition Intact, Facial Symmetry, Neck Supple, Neck: Trachea Midline, No JVD and No Thyromegaly, no Bruits
Respiratory: Clear to auscultation bilaterally with normal lung exersion
Cardiac: S1/S2 and Regular Rate/Rhythm , soft ejection murmur auscultated at right sternal border
Breast: Deferred by me
Abdomen: Soft, Nontender, Nondistended, Normal Bowel Sounds and No Hepatosplenomegaly
Rectal: Deferred by Provider
Genito-urinary: No Costovertebral Tenderness
Extremities: No Clubbing, No Cyanosis and No Edema
Skin: No Rash or open lesions
Neuro: Nonfocal/Grossly Intact, CN II-XII (Intact) and Strength (Musculoskeletal exam 5 out of 5 both upper and lower extremities)
Hematologic/Lymphatic: No Cervical Lymphadenopathy, No Submandibular Lymphadenopathy and No Supraclavicular Lymphadenopathy
Psych: Mood/afflect pleasant, Insight/judgement good and Appropriate
Vascular: plus 1 pedal and radial pulses
Data Reviewed
-
Radiology: Image Personally Visualized and interpreted (Chest x-ray personally reviewed by me showed normal heart size but mild interstitial changes)
Labs: Labs Reviewed by me (BMP CBC urinalysis)
Old Records: Reviewed (Old labs reviewed from October 10, 2009 serum creatinine level 0.8)
Assessment/Plan
-
Impression:
ANGELY (unknown baseline)
Syncope
Hypertensive urgency/emergency
Diabetes
Proteinuria
Positive troponin/recent IA by EKG
History of fatty liver disease
Plan:
ANGELY:
- Obtain fractional excretion of sodium re: ANGELY ? pre renal stimulus
-Currently holding IV fluids given elevated proBNP and possible mild CHF findings on chest
-ANGELY may be secondary to malignant hypertension given underlying proteinuria on urinalysis in the setting of hypertensive urgency
-Obtain kidney and bladder ultrasound, obtain accurate i/os, eventual renal artery duplex to evaluate for ELVIA
-Quantitate underlying proteinuria with urine protein to creatinine ratio, patient could have underlying diabetic nephropathy or functional proteinuria in the setting of accelerated hypertension
-Titrate oral antihypertensives while maintaining Cardene drip (currently off )to keep systolic blood pressure less than 160 dbp less then 100 (we must be cautioned not to induce hypoperfusion injury by decreasing her blood pressure too quickly)
-Holding ANDREW inhibitor in setting of acute renal failure
- This patient is critically ill with hypertensive emergency with associated acute renal failure proteinuria, requiring IV Cardene drip
[2025-02-13 12:37] LABS: Troponin I 0.422 ng/ml
[2025-02-13 13:18] LABS: Glucose - Point of Care 144 mg/dl (70-99)
--- NOTE | 2025-02-13 14:30 | PTCARENOTE ---
PTT sent. Pt taken for VQ Scan via bed. Dr. Lazcano updated on 2 BP readings in the 170's- awaiting orders. No other changes
[2025-02-13 14:44] LABS: APTT 128.9 Sec (23.4-35.0)
[2025-02-13 14:56] LABS: Microalb - Urine Creatinine 69.400 mg/dl
--- NOTE | 2025-02-13 15:30 | PTCARENOTE ---
PTT resulted as 128.9 - Heparin gtt decreased to 800 units/hr. Pt taken to IVU report given to IVU staff. VS as documented. Procardia XL given per orders. Call burton in reach. No other changes. No complaints.
[2025-02-13] MEDS: PROCARDIA XL (EXTENDED RELEASE) 30 MG PO (15:39)
[2025-02-13 16:57] LABS: Microalbumin, Random Urine > 57.0 mg/dl (0.6-1.7)
--- NOTE | 2025-02-13 17:14 | PTCARENOTE ---
Addendum entered by Lisseth Madison RN 02/13/25 17:16:
Received patient at 1530
Original Note:
RECE'D PT From ICU. assessment stable Pt Hypertensive - gave Procardia and will monitor. Pt without any complaints.
[2025-02-13 17:39] LABS: Glucose - Point of Care 190 mg/dl (70-99)
[2025-02-13 18:55] LABS: Troponin I 1.070 ng/ml
[2025-02-13] MEDS: COREG 25 MG PO (19:31)
[2025-02-13 22:13] LABS: Glucose - Point of Care 273 mg/dl (70-99)
[2025-02-13 22:39] LABS: APTT 84.2 Sec (23.4-35.0)
--- NOTE | 2025-02-13 23:37 | PTCARENOTE ---
Received pt @ change of shift. AAOx3, BP 170/67, other VSS-- NSR on monitor. Heparin gtt running @ 800 units/hr through right AC. Sequentials running. Neuro check completed-- see worklist. Discussed plan of care with pt and daughter. Call burton
within reach.
Daughter voiced concern about the plan with her trops still increasing.RN explained that she is scheduled to go to the qc lab technician on Saturday as long as she remains asymptomatic (no chest pain/discomfort or EKG changes). RN also explained that her
trops could be increased because of the hypertension and not knowing how long it has been going on. RN explained what tests had already been done, and informed her about the renal US scheduled for the following day to try to figure out why her Cr is
as high. Daughter still wasn't very happy 'that we are not doing anything for her increasing trops and she is worried we will miss something.' RN discussed that the clay machine operator would better be able to answer further questions.
[2025-02-14] VITALS (8 sets, daily range): BP systolic 133–197; BP diastolic 61–80
[2025-02-14 03:59] LABS: APTT 57.1 Sec (23.4-35.0)
[2025-02-14 04:17] LABS: Blood Urea Nitrogen 32 mg/dl (7-17); Calcium 8.4 mg/dl (8.4-10.2); Carbon Dioxide 24 mmol/L (22-30); Chloride 107 mmol/L (98-107); Estimated Creatinine Clearance 17 ml/min; Glucose 210 mg/dl (70-99); Magnesium 1.8 mg/dl (1.6-2.3); Potassium 4.7 mmol/L (3.5-5.1); Sodium 135 mmol/L (135-145); eGFR 22.95
[2025-02-14 04:18] LABS: Hematocrit 26.7 % (37.0-47.0); Hemoglobin 8.8 g/dL (12.0-16.0); Mean Corp Hgb Conc. 33.0 g/dL (33.0-37.0); Mean Corpuscular Volume 88.1 fL (81.0-99.0); Platelet Count 184 10^3/uL (130-400); Red Cell Dist. Width 13.4 % (11.5-14.5)
[2025-02-14 04:26] LABS: Troponin I 1.310 ng/ml
[2025-02-14 08:07] LABS: Glucose - Point of Care 129 mg/dl (70-99)
[2025-02-14] MEDS: HEPARIN 25000 UNITS/250 ML IV (08:08)
[2025-02-14] MEDS: COREG 25 MG PO ×2 (08:16→19:26)
[2025-02-14] MEDS: NOVOLOG FLEXPEN-MODERATE RESISTANCE SC ×2 (08:16→14:01)
[2025-02-14] MEDS: PROCARDIA XL (EXTENDED RELEASE) 30 MG PO (08:17)
[2025-02-14] MEDS: LOW STRENGTH ASPIRIN 81 MG PO (08:17)
--- NOTE | 2025-02-14 10:01 | W.PN.CD ---
Today's Communication / Plan
-
EKG
Trop
Re-chcek H/H
Cath Saturday (if H/H ok)
Impression / Plan
-
Syncope:
-Tele with NSR,PVCs
- V/Q very low risk
- Echo with subtle wall motion changes
- EKG with evidence of recent OK => making VT/VF/bradycardia possilbe causes of syncope
- Trop rising so adds to the high risk situation
Drop in Hgb/Hct on top of chronic anemia
- To be repeated
- No obvious bleeding
- Admit Hgb 11.2 and now 8.8
- Hgb in 05/2009 11.5
Abnormal troponin with abnormal EKG
- Still rising, trending
- So far peak only 1.31
- Uncertain if this is post-infarct ACS with NSTEMI after recent inf OK, type II OK from the syncope, or non-ischemic myocardial injury from the syncope
- In any event seems high enough risk that she will have a predischarge cath and revascularization if anatomy appropriate
- IV heparin
- Daily EKGs
- Cath Saturday
HTN:
- BP very high on admit, needed IV Cardene
- BP coming under better control
- AVOID PRN IV Meds for asymptomatic HTN at this point
Severe mixed hyperlipidemia:
- LDL 218 on admit (she confirms she was taking rosuvastatin 20 mg daily)
- increased rosuvastatin to 40mg daily => likely will need Repatha as outpatient
DM, type II
CKD:
- Cr 2.1, does not follow with nephrology as OP
- Baseline not known
- Nephrology on board
- Avoid nephrotoxins, will need IV contrast for cath, increasing risk of cath to high risk
I (Lazcano) spoke to a daughter (ER Physician in [place]) via Facetime on 02/13/2025. She is aware of LDL and suggestion that all first degree relatives have lipid profiles monitored and aware and in agreement with our care paln
Subjective: No CP or dyspnea, no syncope
Physical Exam
Vital Signs/Labs
Vital Signs
Temp Pulse Resp BP Pulse Ox
98.3 F 64 20 151/61 96
02/14/25 07:08 02/14/25 08:17 02/14/25 07:08 02/14/25 08:17 02/14/25 07:08
02/13/25 02/14/25 02/15/25
06:59 06:59 06:59
Actual Weight 62.2 kg 64 kg
02/14/25 03:13
PT 14.9 Sec (11.4-14.6) H 02/13/25 04:56
INR 1.14 02/13/25 04:56
APTT 57.1 Sec (23.4-35.0) H 02/14/25 03:13
Magnesium 1.8 mg/dl (1.6-2.3) 02/14/25 03:13
Triglycerides 105 mg/dl (10-149) 02/13/25 04:56
LDL Cholesterol, Calc 218 mg/dl 02/13/25 04:56
VLDL Cholesterol, Calc 21 mg/dl (0-30) 02/13/25 04:56
HDL Cholesterol 50 mg/dl 02/13/25 04:56
02/13/25
04:56
Pwe-D-Phqmelxadyi Pept [id number]
LAB Results
02/12/25 02/12/25 02/13/25
20:12 23:05 00:57
Troponin I 0.095 H* 0.158 H* D Cancelled
02/13/25 02/13/25 02/13/25
04:56 06:57 11:37
Troponin I 0.354 H* D Cancelled 0.422 H*
02/13/25 02/13/25 02/14/25
12:57 18:09 03:13
Troponin I Cancelled 1.070 H* D 1.310 H*
02/14/25
08:00
Troponin I Cancelled
Physical Exam
Constitutional: No acute distress
EENT: Anicteric
Cardiovascular: Rhythm & rate is regular and Pedal edema is absent
Respiratory: Respiratory effort normal and Lungs clear to auscul.
GI: Soft and Distention absent
Neuro/Psych: AO x 3
Data Reviewed
-
Date of Service: February 14, 2025
--- NOTE | 2025-02-14 10:13 | W.PN.NEPH.PH ---
Today's Communication / Plan
-
Follow BMP
Creatinine likely at patient's baseline
Will likely get a cardiac cath on Saturday with contrast prophylaxis
Obtain serological work for nephrotic syndrome
Assessment/Plan
-
Impression:
ANGELY (unknown baseline)
Syncope
Hypertensive urgency/emergency
Diabetes
Proteinuria
Positive troponin/recent PA by EKG
History of fatty liver disease
Plan:
ANGELY:
- Obtain fractional excretion of sodium re: ANGELY ? pre renal stimulus
-Creatinine 2.2, uop ~200cc, weigh up
-Currently holding IV fluids given elevated proBNP and possible mild CHF findings on chest
-ANGELY may be secondary to malignant hypertension given underlying proteinuria on urinalysis in the setting of hypertensive urgency
-Urine protein to creatinine ratio notable for 6 g of proteinuria, will obtain serological workup
-pending kidney and bladder ultrasound, obtain accurate i/os, eventual renal artery duplex to evaluate for ELVIA: pending
-Quantitated underlying proteinuria 6 grams with urine protein to creatinine ratio, patient could have underlying diabetic nephropathy or functional proteinuria in the setting of accelerated hypertension
-Blood pressure with decent control on nifedipine and carvedilol lisinopril currently held
-Holding ANDREW inhibitor in setting of acute renal failure
- This patient is critically ill with hypertensive emergency with associated acute renal failure proteinuria, requiring IV Cardene drip
-
-
Date of Service: February 14, 2025
CC / HPI / ROS
-
Chief Complaint:
Acute kidney injury
History of Present Illness:
Creatinine unchanged at 2.2
Hemodynamically stable on current antihypertensives
Anemia persist
Review of Systems:
Oliguric by recorded urine output
No chest pain or shortness of breath
No fevers
Labs
-
Labs:
WBC 6.4 10^3/uL (4.8-10.8) 02/14/25 03:13
RBC 3.03 10^6/uL (4.20-5.40) L 02/14/25 03:13
Hct 26.7 % (37.0-47.0) L 02/14/25 03:13
Plt Count 184 10^3/uL (130-400) 02/14/25 03:13
Sodium 135 mmol/L (135-145) 02/14/25 03:13
Potassium 4.7 mmol/L (3.5-5.1) 02/14/25 03:13
Chloride 107 mmol/L (98-107) 02/14/25 03:13
Carbon Dioxide 24 mmol/L (22-30) 02/14/25 03:13
BUN 32 mg/dl (7-17) H 02/14/25 03:13
Creatinine 2.2 mg/dL (0.6-1.0) H 02/14/25 03:13
eGFR 22.95 02/14/25 03:13
Glucose 210 mg/dl (70-99) H 02/14/25 03:13
Calcium 8.4 mg/dl (8.4-10.2) 02/14/25 03:13
Phosphorus 4.3 mg/dl (2.5-4.5) 02/14/25 03:13
Fqd-V-Xqvwgaiajxk Pept 11088 pg/ml 02/13/25 04:56
Albumin 4.4 g/dl (3.5-5.0) 02/12/25 20:52
Physical Exam
-
Vital Signs:
Vital Signs
Temp Pulse Resp BP Pulse Ox
98.3 F 64 20 151/61 96
02/14/25 07:08 02/14/25 08:17 02/14/25 07:08 02/14/25 08:17 02/14/25 07:08
Cardiovascular:: Regular rate and rhythm
Respiratory:: Bilateral: CTA
Lung Excursion:: Normal
Abdomen:: Nontender and Soft
Bowel Sounds:: Normal
Extremity Edema:: None: Bilateral:
Gordillo Catheter: No
[2025-02-14 10:37] LABS: Hemoglobin 9.8 g/dL (12.0-16.0)
[2025-02-14 10:51] LABS: APTT 112.9 Sec (23.4-35.0)
[2025-02-14 11:15] LABS: Troponin I 1.430 ng/ml
[2025-02-14 12:25] LABS: Glucose - Point of Care 261 mg/dl (70-99)
--- NOTE | 2025-02-14 14:07 | PTCARENOTE ---
received patient this am, monitor shows NSR, VSS. IV heparin drip @ 1000units/hr, PTT obtained 112.9, decreased IV heparin at 900 units/hr and will obtain PTT at 1730 as per protocol. at 1000 EKG obtained, shown to Dr. Lazcano, also troponin keeps
trending up, will obtain troponins until trending down as per Dr. Lazcano. am labs hgb. 8.8, TT Dr. Cavazos, will obtain hgb. with the 1000 blood draw, hgb. now 9.8. patient filled bladder, just left for renal U/S. family has several doctors in the family,
TT Dr. Lazcano to alk with her daughter Abbie.
--- NOTE | 2025-02-14 16:41 | W.PN.HOSP.TC ---
Today's Communication/Plan
-
see bold
Assessment / Plan
Assessment / Plan
HPI: 74-year-old with past medical history for type 2 diabetes, hypertension, hyperlipidemia, CKD presented to us with syncopal episode at home. Patient took shower. As she was getting dressed in the bathroom, she felt nauseous and remember
anything afterwards. Daughter heard the fall. She found mother on the floor. She was passed out for 5 to 10 seconds. Patient denied any prior headache dizzy. Fever chills cough congestion. Patient denied any chest pain or short of breath.
Patient denied any abdominal pain, nausea, vomiting or diarrhea. Patient denied dysuria hematuria.
# Hypertensive urgency
# Syncope likely secondary to hypertensive urgency
Head CT negative
Appreciate cardiology and gripper machine operator input, status post Cardene drip
Cardiology has increased her home Coreg to 25 mg, and started nifedipine 30 mg daily
Holding home lisinopril secondary to ANGELY/CKD
#Elevated troponin concerning for postinfarct NSTEMI versus nonischemic myocardial injury
#Recent PA by EKG
Appreciate cardiology input, plan for cardiac catheterization Friday 02/16
Continue IV heparin drip, aspirin 81 mg daily, Crestor increased to 40 mg every afternoon
Echocardiogram with subtle wall motion changes
#Elevated D-dimer concerning for PE
Unable to get chest CT PE due to ANGELY
Lower extremity Dopplers negative for DVT
V/Q scan low risk
#Probable CKD
Creatinine 2.1, baseline 0.8, in 2009
Nephrology following, who suspects that this is patient's baseline
Nephrology will order contrast prophylaxis if patient proceeds to cardiac catheterization on Saturday
Hold lisinopril, hold metformin, trend creatinine, no nephrotoxic drugs/NSAIDs
Follow-up on serologic workup for nephrotic syndrome
#Anemia
Hemoglobin 9.8 today, was 11.2
No overt bleeding noted
Check iron studies, trend hemoglobin
#Hyperkalemia
Resolved, s/p lokelma
#Uncontrolled Type 2 diabetes with hyperglycemia
Hemoglobin A1c 9.0
Patient is on glargine 30 units every afternoon at night
She is currently receiving Lantus 15 units at bedtime while in the hospital
Start NovoLog 4 units AC 3 times daily
Hold metformin secondary to ANGELY
#Chronic transaminitis
#Hepatic steatosis
- AST 62, ALT 49
- mild
# Hyperlipidemia
Crestor increased
DVT prophylaxis - IV heparin drip
Full Code
Updated son at bedside 02/14
Total time spent to see the patient on the floor, examine the patient, review data and lab results, discuss treatment plan with patient, nursing staff around 50 minutes.
Physical Exam
General: No acute distress
HEENT: Normocephalic, Atraumatic, EOMI, MMM
Respiratory: Clear to Auscultation bilaterally
Cardiac: Normal S1/S2, Regular Rate and Rhythm
GI: Soft, Nontender, Nondistended, Normal Bowel Sounds
Extremities: No Clubbing, Cyanosis, or Edema
Neuro: Nonfocal/Grossly Intact
Anticipated Discharge: > 48 hours
Subjective/Interval History
-
Date of Service: February 14, 2025
Patient denies chest pain, denies shortness of breath. No fever, no vomiting.
Objective Data
-
Labs:
Laboratory Results
02/14/25 02/14/25
10:28 17:30
Hgb 9.8 L
APTT 112.9 H Pending
Vital Signs:
Vital Signs
Temp Pulse Resp BP Pulse Ox
97.8 F 65 20 162/80 97
02/14/25 15:19 02/14/25 16:00 02/14/25 15:19 02/14/25 15:20 02/14/25 15:20
I&O
02/13/25 02/14/25 02/15/25
06:59 06:59 06:59
Intake Total 904.0 / 904.0 240 / 240
Output Total 700 / 700
Balance 204.0 / 204.0 240 / 240
[2025-02-14 17:28] LABS: Glucose - Point of Care 296 mg/dl (70-99)
[2025-02-14] MEDS: NOVOLOG FLEXPEN 4 UNITS SC (17:39)
[2025-02-14] MEDS: NOVOLOG FLEXPEN-MODERATE RESISTANCE 5 UNITS SC (17:40)
[2025-02-14] MEDS: CRESTOR 40 MG PO (17:49)
[2025-02-14 18:13] LABS: APTT 94.1 Sec (23.4-35.0)
[2025-02-14 18:26] LABS: Troponin I 0.950 ng/ml
[2025-02-14 22:18] LABS: Glucose - Point of Care 235 mg/dl (70-99)
[2025-02-14] MEDS: LANTUS 0.15 UNITS SC (22:33)
[2025-02-15] VITALS (33 sets, daily range): BP systolic 72–196; BP diastolic 33–118
[2025-02-15 01:30] LABS: APTT 88.7 Sec (23.4-35.0)
--- NOTE | 2025-02-15 02:33 | PTCARENOTE ---
Received pt @ change of shift. AAOx3, OOB in chair, family bedside. NSR on monitor. BP 181/80 , 98% on room air, HR 60s-70s, Resp 16, temp 97.8. Family concerned about BP-- RN explained pt was due for next dose of Coreg-- see AUG. Heparin gtt
running @ 900 units/hr through right forearm. Discussed plan of care for evening. Pt verbalizes understanding. Call [facility] within reach.
[2025-02-15 04:58] LABS: Hematocrit 25.9 % (37.0-47.0); Hemoglobin 8.7 g/dL (12.0-16.0); Mean Corp Hgb Conc. 33.6 g/dL (33.0-37.0); Mean Corpuscular Volume 87.5 fL (81.0-99.0); Platelet Count 170 10^3/uL (130-400); Red Cell Dist. Width 13.1 % (11.5-14.5)
[2025-02-15 05:13] LABS: APTT 92.4 Sec (23.4-35.0)
[2025-02-15 05:23] LABS: Blood Urea Nitrogen 34 mg/dl (7-17); Calcium 8.5 mg/dl (8.4-10.2); Carbon Dioxide 24 mmol/L (22-30); Chloride 107 mmol/L (98-107); Estimated Creatinine Clearance 18 ml/min; Glucose 191 mg/dl (70-99); Iron 90 ug/dl (37-170); Potassium 4.3 mmol/L (3.5-5.1); Sodium 136 mmol/L (135-145); eGFR 24.27
[2025-02-15 05:32] LABS: Total Iron Binding Capacity 262 ug/dl (265-497)
[2025-02-15 06:20] LABS: Ferritin 47.3 ng/ml (11.1-264.0)
[2025-02-15 06:52] LABS: Folate > 20.0 ng/ml (2.76-20); Vitamin B12 599 pg/ml (239-931)
[2025-02-15 08:19] LABS: Glucose - Point of Care 167 mg/dl (70-99)
--- NOTE | 2025-02-15 08:36 | W.PN.CD ---
Today's Communication / Plan
-
plan fro cath tomorrow
monitor anemai - evaluation by primary team
creatine 2.1 monitor clsoely nephrology following
Impression / Plan
-
Syncope:
-Tele with no arrhythmias overnight
- V/Q very low risk
- Echo Preserved LVF with subtle wall motion change ( Inf/ inferolat wall motion)
- EKG with evidence of recent NM => making VT/VF/bradycardia possilbe causes of syncope
- Plan for cardiac cath 02/16/25
anemai - hb 8.7
- No obvious bleeding
- Admit Hgb 11.2 and now 8.8
- Hgb in 05/2009 11.5
- remianson heparin without overt bleeding. Evaluation per primary team
Abnormal troponin with abnormal EKG
- peak troponin 1.4
- Uncertain if this is post-infarct ACS with NSTEMI after recent inf NM, type II NM from the syncope, or non-ischemic myocardial injury from the syncope
- Cath Saturday
HTN:
- BP very high on admit,. tredning down
Severe mixed hyperlipidemia:
- LDL 218 on admit (she confirms she was taking rosuvastatin 20 mg daily)
- increased rosuvastatin to 40mg daily => may need Repatha as outpatient
DM, type II
CKD:
- Cr 2.1, does not follow with nephrology as OP
- Baseline not known
- Nephrology on board
- Avoid nephrotoxins, will need IV contrast for cath, increasing risk of cath to high risk
I (Lazcano) spoke to a daughter (ER Physician in [place]) currently at bedside
Subjective: No CP or dyspnea, no syncope
Physical Exam
Vital Signs/Labs
Vital Signs
Temp Pulse Resp BP Pulse Ox
98.2 F 61 16 164/69 98
02/15/25 07:15 02/15/25 02:00 02/15/25 07:15 02/14/25 22:13 02/15/25 07:15
02/14/25 02/15/25 02/16/25
06:59 06:59 06:59
Actual Weight 64 kg
02/15/25 04:35
02/15/25 04:35
PT 14.9 Sec (11.4-14.6) H 02/13/25 04:56
INR 1.14 02/13/25 04:56
APTT 92.4 Sec (23.4-35.0) H 02/15/25 04:39
Magnesium 1.8 mg/dl (1.6-2.3) 02/14/25 03:13
Triglycerides 105 mg/dl (10-149) 02/13/25 04:56
LDL Cholesterol, Calc 218 mg/dl 02/13/25 04:56
VLDL Cholesterol, Calc 21 mg/dl (0-30) 02/13/25 04:56
HDL Cholesterol 50 mg/dl 02/13/25 04:56
02/13/25
04:56
Mto-Z-Jpzhrfxdodq Pept [id number]
LAB Results
02/12/25 02/12/25 02/13/25
20:12 23:05 00:57
Troponin I 0.095 H* 0.158 H* D Cancelled
02/13/25 02/13/25 02/13/25
04:56 06:57 11:37
Troponin I 0.354 H* D Cancelled 0.422 H*
02/13/25 02/13/25 02/14/25
12:57 18:09 03:13
Troponin I Cancelled 1.070 H* D 1.310 H*
02/14/25 02/14/25 02/14/25
08:00 10:28 17:48
Troponin I Cancelled 1.430 H* 0.950 H* D
Physical Exam
Constitutional: No acute distress
Cardiovascular: Rhythm & rate is regular
Respiratory: Respiratory effort normal
GI: Soft
Neuro/Psych: Alert
Data Reviewed
-
Date of Service: February 15, 2025
Medical Decision Making: Reviewed Test Results
EKG: Report Reviewed by me
Medical Tests (PFT, Pathology etc): Report Reviewed by me
Labs: Labs Reviewed by me
[2025-02-15] MEDS: NOVOLOG FLEXPEN 4 UNITS SC (09:05)
[2025-02-15] MEDS: NOVOLOG FLEXPEN-MODERATE RESISTANCE 1 UNITS SC (09:06)
[2025-02-15] MEDS: PROCARDIA XL (EXTENDED RELEASE) 30 MG PO (09:08)
[2025-02-15] MEDS: COREG 25 MG PO (09:08)
[2025-02-15] MEDS: LOW STRENGTH ASPIRIN 81 MG PO (09:09)
--- NOTE | 2025-02-15 10:20 | PTCARENOTE ---
received patient this am in bed, monitor shows NSR, VSS. patient denies any CP, SOB, dizziness. IV heparin @ 900units/hr via right forearm. daughter at bedside aware of plan tomorrow NPO for cath.
--- NOTE | 2025-02-15 11:07 | W.PN.NEPH.PH ---
Today's Communication / Plan
-
Kidney workup in process
Maintain current antihypertensives
I believe creatinine is stable within baseline and can proceed tomorrow for cardiac catheterization with contrast prophylaxis provided
Assessment/Plan
-
Impression:
ANGELY (unknown baseline)
Syncope
Hypertensive urgency/emergency
Diabetes
Proteinuria
Positive troponin/recent [place] by EKG
History of fatty liver disease
Plan:
ANGELY:
- Obtain fractional excretion of sodium re: ANGELY ? pre renal stimulus
-Creatinine 2.1, I suspect this is the patient's baseline
-Currently holding IV fluids given elevated proBNP and possible mild CHF findings on chest
-ANGELY may be secondary to malignant hypertension given underlying proteinuria on urinalysis in the setting of hypertensive urgency
-Urine protein to creatinine ratio notable for 6 g of proteinuria, obtained serological workup:pending
- Reviewed kidney and bladder ultrasound,( normal) obtain accurate i/os, eventual renal artery duplex to evaluate for ELVIA: pending
-Quantitated underlying proteinuria 6 grams with urine protein to creatinine ratio, patient could have underlying diabetic nephropathy or functional proteinuria in the setting of accelerated hypertension
-Blood pressure with decent control on nifedipine and carvedilol lisinopril currently held
-Holding ANDREW inhibitor in setting of acute renal failure
- Patient stable for cardiac catheterization tomorrow will provide contrast prophylaxis
-
-
Date of Service: February 15, 2025
CC / HPI / ROS
-
Chief Complaint:
Acute kidney injury
History of Present Illness:
Creatinine unchanged at 2.1
Hemodynamically stable on current antihypertensives
Anemia persist
Review of Systems:
Oliguric by recorded urine output
No chest pain or shortness of breath
No fevers
Labs
-
Labs:
WBC 5.9 10^3/uL (4.8-10.8) 02/15/25 04:35
RBC 2.96 10^6/uL (4.20-5.40) L 02/15/25 04:35
Hgb 8.7 g/dL (12.0-16.0) L 02/15/25 04:35
Hct 25.9 % (37.0-47.0) L 02/15/25 04:35
Plt Count 170 10^3/uL (130-400) 02/15/25 04:35
Sodium 136 mmol/L (135-145) 02/15/25 04:35
Potassium 4.3 mmol/L (3.5-5.1) 02/15/25 04:35
Chloride 107 mmol/L (98-107) 02/15/25 04:35
Carbon Dioxide 24 mmol/L (22-30) 02/15/25 04:35
BUN 34 mg/dl (7-17) H 02/15/25 04:35
Creatinine 2.1 mg/dL (0.6-1.0) H 02/15/25 04:35
eGFR 24.27 02/15/25 04:35
Glucose 191 mg/dl (70-99) H 02/15/25 04:35
Calcium 8.5 mg/dl (8.4-10.2) 02/15/25 04:35
Phosphorus 4.3 mg/dl (2.5-4.5) 02/14/25 03:13
Njy-L-Brwipsvlvjj Pept 52095 pg/ml 02/13/25 04:56
Albumin 4.4 g/dl (3.5-5.0) 02/12/25 20:52
Physical Exam
-
Vital Signs:
Vital Signs
Temp Pulse Resp BP Pulse Ox
98.2 F 71 16 157/58 97
02/15/25 07:15 02/15/25 10:00 02/15/25 07:15 02/15/25 09:08 02/15/25 08:30
Cardiovascular:: Regular rate and rhythm
Respiratory:: Bilateral: CTA
Lung Excursion:: Normal
Abdomen:: Nontender and Soft
Bowel Sounds:: Normal
Extremity Edema:: None: Bilateral:
Gordillo Catheter: No
[2025-02-15 11:10] LABS: Glucose - Point of Care 239 mg/dl (70-99)
[2025-02-15 11:41] LABS: Hematocrit 28.3 % (37.0-47.0); Hemoglobin 9.6 g/dL (12.0-16.0); Mean Corp Hgb Conc. 33.9 g/dL (33.0-37.0); Mean Corpuscular Volume 84.7 fL (81.0-99.0); Platelet Count 170 10^3/uL (130-400); Red Cell Dist. Width 13.2 % (11.5-14.5)
[2025-02-15 11:46] LABS: INR 1.07; PT 14.2 Sec (11.4-14.6)
[2025-02-15 11:48] LABS: APTT 99.3 Sec (23.4-35.0)
--- NOTE | 2025-02-15 11:54 | W.PN.INTV ---
Today's Communication / Plan
Recommendations
Code 9 called, brief CPR with ROSC--present at bedside
Recovered, not on pressors/no hypoxemia noted
Emergent clinical lab scientist today, cards aware/managing
FU to ICU vs CVICU pending findings
Assessment
-
Patient is a 74-year-old female with previous history of diabetes, hypertension, chronic kidney disease presenting with syncopal episode at home, found by daughter on the floor. Notably she was down for 5 to 10 seconds, with loss of consciousness.
On arrival to ER she had elevated troponin and D-dimer. She was noted to be in hypertensive urgency. She was started on nitro and heparin drip. Admitted to ICU for further management. Transferred out 02/13 following improvement of BP. R/o
NSTEMI, had cardiac arrest/code 9 on 02/15 with emergent trip to clinical lab scientist, transferred back to ICU for further management.
s/p brief cardiac arrest, s/p CPR (<10 secs) with ROSC
Elevated troponin, rule out NSTEMI, on IV heparin
Hypertensive urgency on nitro drip--resolved
Syncopal episode
Elevated D-dimer
Hyperkalemia
ANGELY, creatinine 2.1
Anemia, mild
Conditions present prior to admission
Type 2 diabetes
Chronic transaminitis/Fatty Liver
Hypertension
Hyperlipidemia
Chronic kidney disease
Cervical Radiculopathy
Urine Proteinuria
Low Back Pain/DISC DIS LUMBAR
HNP LS spine-EDGAR
bilat carpal tunnel syndrome (2007)
ervical and LS herniated discs with radicular pain LUE and RLE-epidural injections intermittent (1996)
Arthritis
s/p cardiac Cath - [facility] 10/2016
Plan
No current signs of metabolic encephalopathy or MS changes/following commands
ROSC with no MS changes
Pain/sedation: PRN PO meds
RASS goals: 0
Hemodynamically stable, not requiring pressors.
Cardiac history reviewed--HTN, now on cardene, weaned to off
NSTEMI noted, emergent trip to clinical lab scientist
Brief CPR, code 9 called 02/15 with rapid recovery
ECHO obtained 02/13 reviewed -- normal function
Cards following for next steps
Monitor on telemetry
Oxygen needs: stable on RA/BIPAP PRN
ABG on arrival
Prior history of lung disease: none
Supplemental O2 as indicated to maintain sats > 89%
CXR/CT reviewed indicating no acute disease
VQ scan negative/Duplex negative--no further testing needed
NPO for now, resume on follow up
Aspiration precautions, HOB > 30 degrees
Speech therapy eval can be considered if at elevated risk
GI prophylaxis if indicated
ANGELY present, CKD history
Lj following
Void trials
Follow urine output, critical I/Os
Replete electrolytes as needed
No signs/symptoms suspicious for infectious etiology at this time
Observe off antibiotics for now
Follow fever trend, WBC count
CBC stable, no signs of bleeding or coagulopathy.
DVT prophylaxis as assessed based on risk, including mechanical SCDs
Can transfuse if indicated for Hb <7, plt < 10
INR WNL
No prior h/o thyroid disease
H/o diabetes, can continue on home meds, SS for coverage
HbA1c 9.0--poor control
Would consult [employer] DISTRIBUTED [employer] SYSTEMS CONSULTANT for education/management
Diagnostic Data
Chest X-Ray: no acute disease
CT Scan: HCT 02/12/25- No acute intracranial abnormality noted. Mild atrophy. Mild periventricular small vessel ischemic disease. Old left thalamic lacunar infarct
US Legs: 02/12/25-No sonographic evidence for lower extremity venous thrombosis.
Echo: 02/13/25- 1. Normal left ventricle and right ventricle systolic function.
2. Mild inferior to inferolateral wall hypokinesis is suspected.
3. Aortic valve sclerosis without stenosis.
4. Mild left ventricular hypertrophy.
5. No prior study for comparison.
PFT's:
Reports and relevant images were personally reviewed.
Critical Care time 75 mins -- The patient is admitted for acute critical illness for the treatment of vital organ failure and/or prevention of further life-threatening conditions. Total care includes time spent in review of history, physical exam,
medications, hemodynamic/ventilator parameters, laboratory data, imaging and discussion with house staff, pharmacy, respiratory therapy, gas meter repair supervisor, and nursing.
Subjective Dataa
Subjective Data
Date of Service:
Date of Service: February 15, 2025
Chief Complaint: Ross Furnace Operator Follow Up
Subjective:
s/p brief cardiac arrest in IVU, code 9
CPR completed for 10seconds with response and ROSC
Now mentating
To clinical lab scientist emergently
Objective Data
Data Reviewed
Vital Signs / I&O / Oxygen:
Vital Signs
Temp Pulse Resp BP Pulse Ox
98.2 F 71 16 157/58 97
02/15/25 07:15 02/15/25 10:00 02/15/25 07:15 02/15/25 09:08 02/15/25 08:30
Intake and Output
02/14/25 02/15/25 02/16/25
06:59 06:59 06:59
Intake Total 904.0 / 904.0 240 / 240 240 / 240
Output Total 700 / 700
Balance 204.0 / 204.0 240 / 240 240 / 240
SaO2 97
Physical Exam
General: Comfortable and Other (NAD)
HEENT: Normocephalic, Anicteric and Moist Mucous Membranes
Cardiovascular: S1-S2 and Regular Rhythm
Respiratory: Clear and Non-Labored Respirations
GI: Soft, Non Distended and Non Tender
Neurology: Awake, Alert, Oriented and No Motor Deficits
Skin: Warm, Dry and Good Color
Labs/Micro/Reports
Lab Data
02/15/25 11:15
Laboratory Results
02/14/25 02/15/25 02/15/25
17:48 00:52 04:39
PT
INR
APTT 94.1 H 88.7 H 92.4 H
02/15/25
11:15
PT 14.2
INR 1.07
APTT 99.3 H
Microbiology
02/12/25 22:00 Urine Urine Culture - Final
[2025-02-15] MEDS: ZOFRAN 4 MG IV (11:55)
[2025-02-15 12:03] LABS: Blood Urea Nitrogen 35 mg/dl (7-17); Calcium 9.0 mg/dl (8.4-10.2); Carbon Dioxide 21 mmol/L (22-30); Chloride 107 mmol/L (98-107); Estimated Creatinine Clearance 18 ml/min; Glucose 236 mg/dl (70-99); Potassium 5.4 mmol/L (3.5-5.1); Sodium 135 mmol/L (135-145); eGFR 24.27
--- NOTE | 2025-02-15 12:04 | PTCARENOTE ---
patient was sitting up in chair , daughter came out to get me. patient became unresponsive, garbled speech, starred into space. code called, please see code sheet.
--- NOTE | 2025-02-15 12:08 | PTCARENOTE ---
report given to laboratory assistant, patient transported by code team.
--- NOTE | 2025-02-15 12:08 | W.PN.UPDATE ---
Update Note
Progress Note Update
Called to bedside patient with decreased level of responsiveness in chair put in bed and was hypotensive and bradycardic with heart rates in the 40s ECG showed sinus bradycardia ST is more prominent inferiorly raising question of inferior ST
elevation myocardial infarction. visual aid expert called and cath felipa called in for acute IN. Systolic blood pressures are in the 80s with additional relationally given fluids and dopamine being initiated and then patient became more
hypotensive and unresponsive for a brief interval. Amp of epi given unable to initially feel pulse so compressions initiated but shortly after couple compressions the patient appeared to be responding and then a pulse was obtained left femoral. BP
and HR recovered. Patient was bagged briefly but then did not require intubation and was awake alert and responding. Due to HR and BP she required titration of Dobutamine and IV Epi added. ECG at times sinus bradycardia and other times appears
consistent with second degree AVB Due to N and V Zofran x1 dose given. issues reviewed with family including daughter who is an ER physician at the bedside.
Cath team including Dr Bobby arrived. Patient taken to electroplating laborer for emergent cath
[2025-02-15 12:17] LABS: Troponin I 0.767 ng/ml
--- NOTE | 2025-02-15 12:44 | W.PN.ANESINT ---
Anesthesia Intubation Note
- Intubation Note
Intubation Note:
Diagnosis: cardio-pulmonary distress
Blade: mac 4
Tube Size: 8.0
Depth: 22
Side Taped: right
Drugs Used: etomidate 10mg, succ 100mg for induction, followed by versed 5mg and summer 40mg IV
Grade View: 1
EtCO2 Present: yes
Atraumatic: yes
Attempts: 1
Insertion Start and Stop Time: 2067-4724
SaO2 Pre: 90
SaO2 Post: 100
Glidescope Used: yes
Other Airway Adjustments:
Pre-Oxygenated: yes
Portable Chest X-Ray: p
RSI: yes
Suctioned:
Bilateral Breath Sounds Confirmed: yes
Vent Settings:
Settings per Attending Physician
[2025-02-15 13:11] LABS: ACT-LR - POC 327 Seconds (116-155)
[2025-02-15 13:49] LABS: B.E. - POC -5.5 mmol/L; Blood Urea Nitrogen - POC 32 mg/dl (3-120); Chloride - POC 107 mmol/L (96-111); Creatinine - POC 2.30 mg/dl (0.3-1.0); Glucose - POC 397 mg/dl (70-99); HCO3 - POC 21 mmol/L (21-28); Hematocrit - POC 30 % PCV (37-47); Hemodilution- POC Yes; Hemoglobin Calculated - POC 10.3; Ionized Calcium - POC 1.14 mmol/L (1.15-1.33); Lactate - POC 1.29 mmol/L (0.36-0.75); O2 Saturation %Calculated-POC 100.0 % (94-98); PCO2 - POC 45 mmHg (35-48); PO2 - POC 456 mmHg (83-108); Potassium - POC 5.3 mmol/L (3.5-5.1); Sodium - POC 138 mmol/L (136-145); Specimen Type - POC Arterial; pH - POC 7.28 (7.35-7.45)
--- NOTE | 2025-02-15 14:21 | ITS.CL.PN ---
Retail Sales Professional - Procedure Note
Procedure
Procedure Note:
CARDIAC CATHETERIZATION REPORT
Date of Procedure: 02/15/2025
Referring: Dr. Miguel Angel Limon MD
Indication: inferior STEMI
PROCEDURE(S)
1. Code Blue ACLS
2. temporary venous pacemaker insertion
3. right heart catheterization
4. left heart catheterization
5. coronary angiography
6. PCI with JOSE ANGEL to proximal RCA for acute OR
7. Critical care time (separate from above procedures): 45 minutes
ACCESS
1. 6F right common femoral artery (closure: Angioseal x1)
2. 6F right femoral vein (sutured in place)
3. 8F right internal jugular vein (sutured in place)
4. 20 gauge right radial artery (sutured in place)
CATHETERS
1. 5F balloon tipped venous pacing wire
2. 6F JR4
3. 6F JL4
4. 6F JR4 guide
5. 7F balloon tipped wedge catheter
MODERATE SEDATION: 120 minutes of moderate sedation was utilized. An independent medical technicians was present to assist with and help manage the patient's level of consciousness and physiologic status.
CPR/ACLS
Upon being placed on the table, the patient briefly lost pulse in sinus bradycardia and CPR was immediately initiated. 1 mg of epi was administered. The patient regained ROSC after about 1 minute and was able to mentate appropriately. She had a
episode of emesis. In the setting of recurrent arrest and emesis, the decision was made to intubate the patient prior to proceeding further. 6F right common femoral artery and femoral vein lines were placed to allow of invasive pressure monitoring
and drug administration. Anesthesia then successfully intubated the patient. Midazolam drip was started for sedation. The patient remained quite hypotensive with SBPs 60-80 despite dopamine 10 and epi 5. Norepi 5 was initiated.
TEMPORARY VENOUS PACEMAKER INSERTION
In the setting of severe bradycardia, hypotension, and recurrent PEA arrest, the decision was made to place a TVP emergently prior to proceeding with coronary angiography. After obtaining ultrasound-guided right femoral venous access, a
balloon-tipped temporary venous pacing wire was advanced to the RV with capture verified. Ventricular pacing at rates from 60-100 all led to a significant decrease in arterial pulse pressure and it was determined that she benefited from maintenance
of her atrial kick despite bradycardic heart rates. The TVP was left in place should it be needed in the future during the case.
LEFT HEART CATHETERIZATION
LV 91/18 (EDP 24) mmHg
AO 87/44 (mean 59) mmHg
CORONARY ANGIOGRAPHY
Dominance: right
LM: large, mild disease
LAD: large vessel giving rise to a small D1, small D2, and wrapping around the apex. There is diffuse non-obstructive disease including a focal ~40% stenosis in the mid-LAD.
LCx: moderate caliber vessel giving rise to a small ramus/OM1, moderate caliber OM2, and small OM3. There is a 30% ostial LCx stenosis, focal 80% stenosis in the proximal aspect of OM2, and focal 80% stenosis in the mid-LCx just after the OM1
takeoff.
RCA: moderate caliber vessel 100% occluded proximally. After tenriism of distal flow, there was noted to be a small RDPA and several small RPL branches with non-obstructive disease.
PCI with JOSE ANGEL to RCA
Heparin was given to achieve ACT>300. A Runthrough wire was placed in the distal RCA. Initial lesion preparation was performed with serial inflation of a 2.0 mm semicompliant balloon with tenriism fo distal flow. The vessel was stented with a
2.5x18 mm [place] JOSE ANGEL post-dilated with a 2.5 mm NC balloon to 16 tenisha at stent edges and 18 mm in the mid stent. There remained a small residual waist at the lesion site which was further post-dilated with a 2.75 mm NC balloon to 16 tenisha. Final
angiographic result was excellent. The wire and guide were removed. Within minutes of tenriism flow, the patient no longer had bradycardia and remained in sinus rhythm with improving blood pressure.
RIGHT HEART CATHETERIZATION - after coronary angiography, on epi 5, norepi 5, dopamine 10
RA 24 mmHg
RV 41/17 (EDP 25) mmHg
PA 41/22 (mean 28) mmHg
PCWP 18 mmHg
SaO2 97.8%
SvO2 72.4%
Hb 9.3 g/dL
CO/CI 6.04/3.89 L/min/m2
SVR 742 dsc*-5
PVR 1.7 Wood units
At the conclusion of the case, the femoral arterial line was removed with Perclose suture x1 after verifying common femoral location with hand injection angiography. A radial [place] was placed for invasive pressure monitoring and blood gas analysis.
Pressors and inotropes were weaned for goal SBP>65. ABG was obtained noting mild mixed respiratory and metabolic acidosis and hyperoxygenation; no immediate vent changes were made. An OG tube was inserted under fluoroscopic guidance and 180 mg
ticagrelor administered. Family was updated and the patient was taken to the CVICU in critical but stable condition. Additional critical care time: 45 minutes.
RADIATION: dose 529 mGy; DAP 28.6 Gy*cm2; fluoroscopy time 12.4 min
CONCLUSIONS
1. Cardiac arrest (bradycardia, PEA) in setting of inferior STEMI. ROSC successfully obtained with brief CPR and epi with normal mentation post arrest
2. Intubation for airway protection
3. Successful insertion of a temporary venous pacemaker from the right groin. Pacing ultimately not used given significant worsening of perfusion pressure with RV pacing.
4. Left heart catheterization with elevated LV filling pressure and no aortic stenosis.
5. Coronary angiography demonstrating culprit 100% thrombotic occlusion in the proximal RCA and non-culprit obstructive disease in the OM2 and mid-LCx
6. Successful PCI with DESx1 to prox RCA (2.5x18 mm [place] JOSE ANGEL post dilated to high pressure with a 2.5mm NC balloon at stent edges and 2.75 mm NC balloon in mid stent).
7. Right heart catheterization with right greater than left sided filling pressures, mild pulmonary hypertension, and supra-normal cardiac index while on high dose pressor and inotrope.
8. Insertion of right radial [place] for invasive monitoring. Insertion of OG tube and administration of ticagrelor.
RECOMMENDATIONS
1. Wean pressors for goal MAP>65 and inotrope for goal CI>2.2.
2. Wean vent and aim for early extubation.
3. Cont. DAPT with ASA/ticag for at least 1 year.
4. Aggressive secondary prevention of CAD including high intensity statin to achieve LDL<55. Check lipids, Lp(a), and A1c.
5. Check TTE. Initiate GDMT once off pressors.
6. Cardiac rehab
Copy to: Dr. Bernadette Yancey DO(PCP)
Signed: Jeffery Bobby MD, PhD
--- NOTE | 2025-02-15 14:54 | W.PN.HOSP.TC ---
Today's Communication/Plan
-
Upgrade to the ICU.
CT head pending.
Assessment / Plan
Assessment / Plan
Impression:
HPI: 74-year-old with past medical history for type 2 diabetes, hypertension, hyperlipidemia, CKD presented to us with syncopal episode at home. Patient took shower. As she was getting dressed in the bathroom, she felt nauseous and remember
anything afterwards. Daughter heard the fall. She found mother on the floor. She was passed out for 5 to 10 seconds. Patient denied any prior headache dizzy. Fever chills cough congestion. Patient denied any chest pain or short of breath.
Patient denied any abdominal pain, nausea, vomiting or diarrhea. Patient denied dysuria hematuria.
02/15
Developed bradycardia and hypotension, loss of consciousness, patient was taken urgently for cardiac cath where she had 100% occlusion of proximal RCA, also patient intubated on cardiac cath.
Assessment/plan.
Non-STEMI
Elevated troponin, status post urgent cardiac cath with 100% occlusion of proximal RCA
Aspirin/Brilinta/Crestor
Follows cardiology
# Hypertensive urgency
Blood pressure improved.
Evaluated for cardiac cath and adjust meds according
# Syncope likely secondary to bradycardia event caused by inferior AR
Head CT negative- (repeat CT pending after current event)
Elevated D-dimer concerning for PE
Unable to get chest CT PE due to ANGLEY
Lower extremity Dopplers negative for DVT
V/Q scan low risk
#Probable CKD
Creatinine 2.1, baseline 0.8, in 2009
Nephrology following, who suspects that this is patient's baseline
Anemia
Hemoglobin 9.8 today, was 11.2
No overt bleeding noted
trend hemoglobin
Hyperkalemia
Resolved, s/p lokelma
#Uncontrolled Type 2 diabetes with hyperglycemia
Hemoglobin A1c 9.0
Patient is on glargine 30 units every afternoon at night
She is currently receiving Lantus 15 units at bedtime while in the hospital
Start NovoLog 4 units AC 3 times daily
Hold metformin secondary to ANGELY
#Chronic transaminitis
#Hepatic steatosis
- AST 62, ALT 49
- mild
# Hyperlipidemia
Crestor increased
CODE STATUS: Full code
Family communication: Discussed with family at bedside
Disposition: Upgrade to the ICU
Total time spent on today's encounter was 74 minutes which included time spent in counseling the patient/family regarding diagnosis and treatment plan as listed above, goals of care, and symptom management. Case was discussed with nursing staff,
specialists, and care coordinators/case management. All labs and imaging personally reviewed by me. Remainder the time spent in detailed review of previous records, lab data, imaging, and other medical provider documentation.
Anticipated Discharge: > 48 hours
Subjective/Interval History
-
Date of Service: February 15, 2025
Patient was seen in the morning, daughter at bedside, was fully awake and oriented, denies chest pain or shortness of breath.
Later on HEMOTHERAPIST called and eventually code called for bradycardia, loss of consciousness, hypotension, patient went to stat for cardiac cath with stent to proximal RCA 100% occlusion.
Objective Data
-
Labs:
Laboratory Results
02/15/25 02/15/25 02/15/25
04:35 04:39 11:15
WBC 5.9 5.7
Hgb 8.7 L 9.6 L
Hct 25.9 L 28.3 L
Plt Count 170 170
PT 14.2
INR 1.07
APTT 92.4 H 99.3 H
Sodium 136 135
Potassium 4.3 5.4 H D
Chloride 107 107
Carbon Dioxide 24 21 L
BUN 34 H 35 H
Creatinine 2.1 H 2.1 H
Glucose 191 H 236 H
Calcium 8.5 9.0
Vital Signs:
Vital Signs
Temp Pulse Resp BP Pulse Ox
98.2 F 37 16 160/46 100
02/15/25 07:15 02/15/25 12:00 02/15/25 07:15 02/15/25 12:00 02/15/25 11:40
I&O
02/14/25 02/15/25 02/16/25
06:59 06:59 06:59
Intake Total 904.0 / 904.0 240 / 240 240 / 240
Output Total 700 / 700
Balance 204.0 / 204.0 240 / 240 240 / 240
Physical Exam
-
General: Well Developed, Well Nourished, No Apparent Distress and Comfortable
HEENT: Normocephalic, Atraumatic, Moist Mucous Membranes, No Ptosis, PERRLA and Nose Appears Normal
Respiratory: Clear to Auscultation and Non Labored Respirations
Cardiac: Regular Rhythm and S1/S2
Breast: Deferred by me
GI: Soft, Nontender, Nondistended and Normal Bowel Sounds
Genito-urinary: No Costovertebral Tender
Musculoskeletal: No Clubbing, No Cyanosis and No Edema
Skin: Warm
Neuro: Awake, Alert, Oriented, AO x 3 and No Motor Deficits
Psych: Calm
Data Reviewed
-
Diagnostic Radiology: Image personally visualized and interpreted and Report Reviewed by me
CT Scan: Image personally visualized and interpreted and Report Reviewed by me
Ultrasound: Image personally visualized and interpreted and Report Reviewed by me
MRI: Image personally visualized and interpreted and Report Reviewed by me
Medical Tests (Nuc Med, Echo etc): Image personally visualized and interpreted and Report Reviewed by me
Labs: Labs Reviewed by me
Old Records: Reviewed
[2025-02-15 15:49] LABS: B.E. -7.8 mmol/L; HCO3 17.6 mmol/L (21-28); O2 Saturation % 98.5 % (94-98); PCO2 35 mmHg (32-35); PO2 103 mmHg (83-108)
--- NOTE | 2025-02-15 16:00 | PTCARENOTE ---
Patient received from [facility] at 1530; Sedated and intubated; NS on monitor; VSS; DP and radial pulses present; Lungs diminished at bases; ETT size 8 positioned and secured at 25 cm lip; Ventilator settings SIMV 12/450/5 & FiO2 100% vent changed to
12/450/5/40%; Normoactive BS; Gordillo catheter in placed draining clear, yellow urine; right femoral artery angeosealed; R femoral vein 6French hooked up to 30ml KVO groin puncture approximated, and CDI, R radial A-line in place, Thompson-ying floated
to 45 cm in RIJ Cordis - all lines zeroed and leveled; PIVx3; Levo/ Dops/ Epi/ Versed infusing - see nursing flowsheets for further details; see nursing documentation for further details.
[2025-02-15] MEDS: NOVOLOG FLEXPEN-MODERATE RESISTANCE SC (16:07)
[2025-02-15] MEDS: NOVOLOG FLEXPEN SC (16:07)
[2025-02-15] MEDS: VERSED 50 IV (16:12)
[2025-02-15 16:54] LABS: Troponin I 3.910 ng/ml
[2025-02-15 18:00] LABS: B.E. -6.2 mmol/L; HCO3 19.6 mmol/L (21-28); O2 Saturation % 96.7 % (94-98); PCO2 39 mmHg (32-35); PO2 76 mmHg (83-108); Potassium 5.2 mMOL/L (3.5-5.1); Sodium 134 mMOL/L (136-145)
[2025-02-15] MEDS: SODIUM BICARBONATE 1150 MEQ IV (18:09)
--- NOTE | 2025-02-15 18:15 | RESPNOTE ---
Patient extubated following cpap trial and abg. Patient placed on a 6L nasal cannula.
[2025-02-15 18:46] LABS: ALT (SGPT) 77 U/L (0-35); AST (SGOT) 102 U/L (14-36); Albumin 3.0 g/dl (3.5-5.0); Alkaline Phosphatase 86 U/L (38-126); Blood Urea Nitrogen 38 mg/dl (7-17); Calcium 7.7 mg/dl (8.4-10.2); Carbon Dioxide 20 mmol/L (22-30); Chloride 109 mmol/L (98-107); Estimated Creatinine Clearance 16 ml/min; Glucose 321 mg/dl (70-99); Potassium 5.1 mmol/L (3.5-5.1); Sodium 134 mmol/L (135-145); Total Protein 5.6 g/dl (6.3-8.2); eGFR 20.68
--- NOTE | 2025-02-15 18:52 | PTCARENOTE ---
Levo/ Dopa/ Epi/ Versed all off; Nitro GTT started to keep BP < 160 sodium bicarb gtt @64ml/hr, PT placed on Cpap @ 1715; extubated @ 1815; AAOx3, family at bedside
--- NOTE | 2025-02-15 20:20 | PTCARENOTE ---
received pt from previous rn. Daughters at bedside at time of assessment. Pt AAOx4, bedrest, Sinus nita per tele monitor. HR 50s +pulses throughout. lungs diminished pox 100% on 6L NC. occasional non-productive cough. hypoactive bs. shell draining
clear yellow urine. b/l groin sites intact. RIJ cordis w/ Moran floated to 45. PIV x3 intact. r rad a-line intact. all lines leveled and zeroed. plan of care reviewed and questions encouraged. call burton within reach. see worklist for nursing
interventions
gtts
Bicarb 1 ml/kg/hr
Nitro 15 mcg/min
[2025-02-15] MEDS: BRILINTA 90 MG PO (20:24)
[2025-02-15] MEDS: TYLENOL 650 MG PO (20:24)
[2025-02-15 22:24] LABS: B.E. -3.4 mmol/L; HCO3 21.2 mmol/L (21-28); O2 Saturation % 98.8 % (94-98); PCO2 35 mmHg (32-35); PO2 145 mmHg (83-108); Potassium 5.1 mMOL/L (3.5-5.1)
[2025-02-15 22:51] LABS: Troponin I 12.900 ng/ml
[2025-02-15] MEDS: LANTUS 0.15 UNITS SC (22:57)
[2025-02-15] MEDS: NITROGLYCERIN PREMIX 250 IV (23:02)
[2025-02-15] MEDS: NSS 500 IV (23:03)
[2025-02-16] VITALS (46 sets, daily range): BP systolic 96–184; BP diastolic 46–122; PULSE 62; O2SAT 94
--- NOTE | 2025-02-16 00:16 | PTCARENOTE ---
Addendum entered by Jena Olivares RN 02/16/25 00:31:
UO decreasing CTPA Lionel harrell made aware
Original Note:
pt resting comfortably in bed. Sinus nita per tele monitor HR 50. Bicarb gtt d/c'd.
gtts:
Nitro 15 mcg/min
[2025-02-16 04:19] LABS: B.E. -3.2 mmol/L; HCO3 22.0 mmol/L (21-28); O2 Saturation % 99.0 % (94-98); PCO2 39 mmHg (32-35); PO2 120 mmHg (83-108)
[2025-02-16] MEDS: TYLENOL 650 MG PO ×2 (04:21→20:13)
[2025-02-16 04:39] LABS: Hematocrit 23.0 % (37.0-47.0); Hemoglobin 7.7 g/dL (12.0-16.0); Mean Corp Hgb Conc. 33.5 g/dL (33.0-37.0); Mean Corpuscular Volume 86.5 fL (81.0-99.0); Platelet Count 155 10^3/uL (130-400); Red Cell Dist. Width 13.5 % (11.5-14.5)
[2025-02-16 04:50] LABS: Blood Urea Nitrogen 38 mg/dl (7-17); Calcium 8.3 mg/dl (8.4-10.2); Carbon Dioxide 24 mmol/L (22-30); Chloride 109 mmol/L (98-107); Estimated Creatinine Clearance 15 ml/min; Glucose 139 mg/dl (70-99); Magnesium 1.7 mg/dl (1.6-2.3); Potassium 5.1 mmol/L (3.5-5.1); Sodium 136 mmol/L (135-145); eGFR 18.78
[2025-02-16 04:59] LABS: APTT 30.6 Sec (23.4-35.0)
[2025-02-16 05:15] LABS: Troponin I 17.700 ng/ml
--- NOTE | 2025-02-16 07:15 | W.PN.UPDATE ---
Update Note
Progress Note Update
Update Note Cardiology:
-Pt did well overnight
-Current drip is NTG @ 15 mcg/min. D/C'd Bicarbonate gtt at midnight
-CI 2.24, CO 3.48, MVO2 57%
-A-line appears to be positional at times, with higher pressures than cuff pressures
-Weaned to 2L NC, with O2 sats 100%. Metabolic acidosis has been corrected
-HR 55-60 bpm (sinus) overnight. Did have intermittent bigeminy which started this AM @ 0400
-Monitor h/h 7.7/ for possible transfusion
-Cr 2.6 up from 2.1/2.4 yesterday
-Post cath trop 12.9 -> 17.7
--- NOTE | 2025-02-16 07:30 | W.PN.INTV ---
Today's Communication / Plan
Recommendations
Nitroglycerin drip
Successfully extubated
Monitor renal function
Transfuse if needed
Insulin drip
Assessment
-
Patient is a 74-year-old female with previous history of diabetes, hypertension, chronic kidney disease presenting with syncopal episode at home, found by daughter on the floor. Notably she was down for 5 to 10 seconds, with loss of consciousness.
On arrival to ER she had elevated troponin and D-dimer. She was noted to be in hypertensive urgency. She was started on nitro and heparin drip. Admitted to ICU for further management. Transferred out 02/13 following improvement of BP. R/o
NSTEMI, had cardiac arrest/code 9 on 02/15 with emergent trip to chemical laboratory technician, transferred back to ICU for further management.
s/p brief cardiac arrest, s/p CPR (<10 secs) with ROSC-02/15/2025
Elevated troponin, rule out NSTEMI, on IV heparin
Status post emergent cardiac catheterization 02/15/2025-temporary venous pacemaker, 100% thrombotic occlusion proximal RCA in addition to OM 2 and mid circumflex lesions, PCI proximal RCA
Hypertensive urgency on nitro drip--resolved
Syncopal episode
Elevated D-dimer
Hyperkalemia
ANGELY, creatinine 2.1
Anemia, mild
Conditions present prior to admission:
Type 2 diabetes
Chronic transaminitis/Fatty Liver
Hypertension
Hyperlipidemia
Chronic kidney disease
Cervical Radiculopathy
Urine Proteinuria
Low Back Pain/DISC DIS LUMBAR
HNP LS spine-EDGAR
bilat carpal tunnel syndrome (2007)
ervical and LS herniated discs with radicular pain LUE and RLE-epidural injections intermittent (1996)
Arthritis
s/p cardiac Cath - [facility] 10/2016
Plan
Respiratory status and hemodynamics have improved status post emergent cardiac catheterization
Patient successfully extubated
Supplemental oxygen as needed
BiPAP if needed
Incentive spirometry
Aspiration precautions
Nebulizers if needed-currently not bronchospastic
CXR/CT reviewed indicating no acute disease
VQ scan negative/Duplex negative--no further testing needed
Cardiology following-correspondence reviewed
Status post brief CPR 02/15/2025
Cardiac catheterization results summarized above-status post successful RCA stent
Nitroglycerin drip continues for significant hypertension
ANGELY present, CKD history
Lj following
Void trials
Follow urine output, critical I/Os
Replete electrolytes as needed
No signs/symptoms suspicious for infectious etiology at this time
Observe off antibiotics for now
Follow fever trend, WBC count
CBC stable, no signs of bleeding or coagulopathy.
DVT prophylaxis as assessed based on risk, including mechanical SCDs
Can transfuse if indicated for Hb <7, plt < 10
INR WNL
No prior h/o thyroid disease
H/o diabetes, can continue on home meds, SS for coverage
HbA1c 9.0--poor control
Would consult DM REMANUFACTURING TECHNICIAN for education/management
DVT prophylaxis
Nutrition
Early mobilization once cardiac clearance
Dr. Davey updated daughter at the bedside 02/16/2025
Critical care statement: A total of 50 minutes of critical care time was provided for this patient today. This includes management of unstable vital signs, evaluation of the patient at bedside, reviewing the patient�s pertinent medical records
including radiographs, microbiology, laboratory evaluations, and��discussion with primary team, consultants, pharmacy, nutrition, physical therapy, case management, charge nurse, critical care nursing, and respiratory therapy.
Diagnostic Data
Chest X-Ray: no acute disease
CT Scan: HCT 02/12/25- No acute intracranial abnormality noted. Mild atrophy. Mild periventricular small vessel ischemic disease. Old left thalamic lacunar infarct
US Legs: 02/12/25-No sonographic evidence for lower extremity venous thrombosis.
Echo: 02/13/25- 1. Normal left ventricle and right ventricle systolic function.
2. Mild inferior to inferolateral wall hypokinesis is suspected.
3. Aortic valve sclerosis without stenosis.
4. Mild left ventricular hypertrophy.
5. No prior study for comparison.
Reports and relevant images were personally reviewed.
Subjective Dataa
Subjective Data
Date of Service:
Date of Service: February 16, 2025
Chief Complaint: [employer] Follow Up and Pulmonary Follow Up
Subjective:
Feels better, no complaints of shortness of breath, chest pain, pleurisy, abdominal pain, neck hurts
Review of Systems
General: Other (Per HPI)
Objective Data
Data Reviewed
Vital Signs / I&O / Oxygen:
Vital Signs
Temp Pulse Resp BP Pulse Ox
97.9 F 57 16 153/70 100
02/16/25 07:00 02/16/25 07:00 02/16/25 07:00 02/16/25 07:00 02/16/25 07:00
Intake and Output
02/15/25 02/16/25 02/17/25
06:59 06:59 06:59
Intake Total 240 / 240 1037.6 / 1059.9 22.3 / 22.3
Output Total 640 / 660 20 / 20
Balance 240 / 240 397.6 / 399.9 2.3 / 2.3
SaO2 100
Nasal Cannula flow liters per 2
minute
Physical Exam
General: Respiratory Distress (n), Comfortable and Other (NAD)
HEENT: Normocephalic, Anicteric and Moist Mucous Membranes
Cardiovascular: Regular Rhythm and Murmur (n)
Respiratory: Clear, Wheeze (n), Crackles (n), Non-Labored Respirations and Accessory Resp Muscle Use (n)
GI: Soft, Non Distended and Non Tender
Neurology: Awake, Alert, Oriented and No Motor Deficits
Skin: Warm, Good Color, Cyanosis (n), Jaundice (n) and Rash (n)
Labs/Micro/Reports
Lab Data
02/16/25 04:06
02/16/25 04:06
Laboratory Results
02/15/25 02/15/25 02/15/25
11:15 15:40 17:54
PT 14.2
INR 1.07
APTT 99.3 H
pH 7.31 L 7.31 L
pCO2 35 39 H
pO2 103 76 L
HCO3 17.6 L 19.6 L
O2 Delivery Level
02/15/25 02/16/25
22:16 04:06
PT
INR
APTT 30.6
pH 7.39 7.36
pCO2 35 39 H
pO2 145 H 120 H
HCO3 21.2 22.0
O2 Delivery Level
Microbiology
02/12/25 22:00 Urine Urine Culture - Final
[2025-02-16] MEDS: MAGNESIUM SULFATE 102 GRAMS IV (08:25)
[2025-02-16] MEDS: LOW STRENGTH ASPIRIN 81 MG PO (08:26)
[2025-02-16] MEDS: COREG 25 MG PO (08:26)
[2025-02-16] MEDS: BRILINTA 90 MG PO ×2 (08:26→20:13)
[2025-02-16] MEDS: PROCARDIA XL (EXTENDED RELEASE) 30 MG PO (08:26)
--- NOTE | 2025-02-16 09:03 | PTCARENOTE ---
Received pt from night manager RN at 0700; pt AAOX3 and family at bedside; Sinus Bradycardia on monitor and VSS; RIJ Cordis, Irene floated to 45, Right A-line, RVF Sheath with KVO and PIV x3 all lines leveled and zeroed; Nitro infusing see flow sheet
for details; lungs diminished; hypoactive bowel sounds; Gordillo catheter draining clear yellow urine; palpable pulses throughout; trace generalized edema noted; Right groin site C/D/I; see nursing documentation for further details.
Dr Bobby at bedside, Right A-line removed, per MD rivero to order diet for pt, per MD rivero to remove swan and RFV Sheath.
Echo and US completed.
[2025-02-16] MEDS: BRILINTA 180 MG PO (09:20)
[2025-02-16] MEDS: NOVOLOG FLEXPEN SC (09:21)
[2025-02-16] MEDS: CRESTOR PO (09:21)
[2025-02-16] MEDS: NOVOLOG FLEXPEN-MODERATE RESISTANCE SC ×3 (09:21→14:48)
[2025-02-16] MEDS: NOVOLOG FLEXPEN 4 UNITS SC ×3 (09:30→17:56)
--- NOTE | 2025-02-16 11:15 | W.PN.NEPH.PH ---
Today's Communication / Plan
-
follow labs
Assessment/Plan
-
Impression:
ANGELY (unknown baseline)
Syncope
Hypertensive urgency/emergency
Diabetes
Proteinuria
Positive troponin/recent PR by EKG
History of fatty liver disease
Plan:
ANGELY:
ANGELY cr increasing upto 2.6 after brief card arrest and S/p PCI 02/15
non oliguric with shell-do not remove, renal US no hydro and no right ELVIA, left not visualized with bowel gas
UA bland but U PCR 6.6gm/gm of cr-serologies pending, complements normal
patient could have underlying diabetic nephropathy or functional proteinuria in the setting of accelerated hypertension
BP stable off nitro gtt and back on po meds
PCWP of 18 on cath so no diuretics yet
Holding ANDREW inhibitor in setting of acute renal failure
case d/w daughter who is an ER doc at [place]
d/w nursing
-
-
Date of Service: February 16, 2025
CC / HPI / ROS
-
Chief Complaint:
Acute kidney injury
History of Present Illness:
Creatinine up at 2.6
Hemodynamically stable on current antihypertensives, off nitro gtt
Anemia persist hb 7.7
brief card arrest -low HR and low BP, few compressions. s/p HC with RCA stent on 02/15
Review of Systems:
non Oliguric with shell
No chest pain or shortness of breath
No fevers
Labs
-
Labs:
WBC 7.6 10^3/uL (4.8-10.8) 02/16/25 04:06
RBC 2.66 10^6/uL (4.20-5.40) L 02/16/25 04:06
Hgb 7.7 g/dL (12.0-16.0) L 02/16/25 04:06
Hct 23.0 % (37.0-47.0) L 02/16/25 04:06
Plt Count 155 10^3/uL (130-400) 02/16/25 04:06
Sodium 136 mmol/L (135-145) 02/16/25 04:06
Potassium 5.1 mmol/L (3.5-5.1) 02/16/25 04:06
Chloride 109 mmol/L (98-107) H 02/16/25 04:06
Carbon Dioxide 24 mmol/L (22-30) 02/16/25 04:06
BUN 38 mg/dl (7-17) H 02/16/25 04:06
Creatinine 2.6 mg/dL (0.6-1.0) H 02/16/25 04:06
eGFR 18.78 02/16/25 04:06
Glucose 139 mg/dl (70-99) H 02/16/25 04:06
Calcium 8.3 mg/dl (8.4-10.2) L 02/16/25 04:06
Phosphorus 4.3 mg/dl (2.5-4.5) 02/14/25 03:13
Vxr-M-Pvslaimptdr Pept 75762 pg/ml 02/13/25 04:56
Albumin 3.0 g/dl (3.5-5.0) L 02/15/25 17:53
Physical Exam
-
Vital Signs:
Vital Signs
Temp Pulse Resp BP Pulse Ox
98 F 51 18 140/60 96
02/16/25 12:00 02/16/25 12:00 02/16/25 12:00 02/16/25 12:00 02/16/25 12:00
Cardiovascular:: Regular rate and rhythm
Respiratory:: Bilateral: Coarse
Lung Excursion:: Normal
Abdomen:: Nontender and Soft
Bowel Sounds:: Normal
Extremity Edema:: None: Bilateral:
Shell Catheter: Yes
--- NOTE | 2025-02-16 11:25 | PTCARENOTE ---
RFV sheath removed by CTPA; [place] Francheska removed; Sinus bradycardia on monitor and VSS; family at bedside and updated on plan for day.
--- NOTE | 2025-02-16 11:31 | W.PN.CARD.SR ---
Sheath/IABP Sheath Removal
Sheath Removal
Right Venous Femoral:
Site appearance prior to sheath removal: Intact
Sheath removed by:: Physician bookkeeping assistant
Name of associate removing sheath: Jero Cardona PA-C
Time of sheath removal: 11:22
Time hemostasis achieved: 11:28
Site appearance post sheath removal: Intact
Method of Hemostasis Post Sheath Removal: Manual Pressure
Dressing dry and intact?: Yes
--- NOTE | 2025-02-16 12:20 | W.PN.HOSP.TC ---
Today's Communication/Plan
-
Continue monitoring blood pressure and heart rate.
Follows cardiology recommendations regarding blood pressure medication adjustment.
Monitor kidney function.
Assessment / Plan
Assessment / Plan
Impression:
HPI: 74-year-old with past medical history for type 2 diabetes, hypertension, hyperlipidemia, CKD presented to us with syncopal episode at home. Patient took shower. As she was getting dressed in the bathroom, she felt nauseous and remember
anything afterwards. Daughter heard the fall. She found mother on the floor. She was passed out for 5 to 10 seconds. Patient denied any prior headache dizzy. Fever chills cough congestion. Patient denied any chest pain or short of breath.
Patient denied any abdominal pain, nausea, vomiting or diarrhea. Patient denied dysuria hematuria.
02/15
Developed bradycardia and hypotension, loss of consciousness, briefly coded and received 1 mg of epinephrine and short run of CPR, patient was fully awake afterward, patient was taken urgently for cardiac cath where she had 100% occlusion of
proximal RCA, also patient intubated on cardiac cath.
Assessment/plan.
Non-STEMI/STEMI
Elevated troponin, status post urgent cardiac cath with 100% occlusion of proximal RCA
Aspirin/Brilinta/Crestor
Cardiac arrest/PEA /bradycardia
Patient briefly coded and ROSC achieved quickly.
Fully awake after good.
Underwent urgent cardiac cath
Acute hypoxic respiratory failure
Patient intubated after cardiac cath but extubated later in the ICU
Currently on 2 L nasal cannula
Hypertensive urgency
Blood pressure improved.
But patient still with bradycardia.
Will discuss with cardiology regarding blood pressure medication adjustment.
Patient currently on nifedipine and Coreg but heart rate dropped to 43 today.
# Syncope likely secondary to bradycardia event caused by inferior [place]
Head CT negative- (repeat CT pending after current event)
Elevated D-dimer concerning for PE
Unable to get chest CT PE due to ANGELY
Lower extremity Dopplers negative for DVT
V/Q scan low risk
ANGELY on CKD
Creatinine 2.1, baseline 0.8, in 2009
Nephrology following, who suspects that this is patient's baseline
Anemia
Hemoglobin 9.8 today, was 11.2
No overt bleeding noted
trend hemoglobin
Hyperkalemia
Resolved, s/p lokelma
#Uncontrolled Type 2 diabetes with hyperglycemia
Hemoglobin A1c 9.0
Patient is on glargine 30 units every afternoon at night
She is currently receiving Lantus 15 units at bedtime while in the hospital
Start NovoLog 4 units AC 3 times daily
Hold metformin secondary to ANGELY
#Chronic transaminitis
#Hepatic steatosis
- AST 62, ALT 49
- mild
# Hyperlipidemia
Crestor increased
CODE STATUS: Full code
Family communication: Discussed with family at bedside
Disposition: Continue monitoring blood pressure and heart rate.
Follows cardiology recommendations regarding blood pressure medication adjustment.
Total time spent on today's encounter was 74 minutes which included time spent in counseling the patient/family regarding diagnosis and treatment plan as listed above, goals of care, and symptom management. Case was discussed with nursing staff,
specialists, and care coordinators/case management. All labs and imaging personally reviewed by me. Remainder the time spent in detailed review of previous records, lab data, imaging, and other medical provider documentation.
Anticipated Discharge: > 48 hours
Subjective/Interval History
-
Date of Service: February 16, 2025
Patient seen and examined at bedside, denies any chest pain or shortness of breath, no abdominal pain, no nausea, no vomiting, no diarrhea or constipation.
Patient is awake and oriented, family at bedside.
Objective Data
-
Labs:
Laboratory Results
02/16/25
04:06
WBC 7.6
Hgb 7.7 L
Hct 23.0 L
Plt Count 155
APTT 30.6
HCO3 22.0
Sodium 136
Potassium 5.1
Chloride 109 H
Carbon Dioxide 24
BUN 38 H
Creatinine 2.6 H
Glucose 139 H
Calcium 8.3 L
Vital Signs:
Vital Signs
Temp Pulse Resp BP Pulse Ox
97.9 F 50 18 138/57 100
02/16/25 11:00 02/16/25 11:00 02/16/25 11:00 02/16/25 11:00 02/16/25 11:00
I&O
02/15/25 02/16/25 02/17/25
06:59 06:59 06:59
Intake Total 240 / 240 1037.6 / 1059.9 109.9 / 109.9
Output Total 640 / 660 165 / 165
Balance 240 / 240 397.6 / 399.9 -55.1 / -55.1
Physical Exam
-
General: Well Developed, Well Nourished, No Apparent Distress and Comfortable
HEENT: Normocephalic, Atraumatic, Moist Mucous Membranes, No Ptosis, PERRLA and Nose Appears Normal
Respiratory: Clear to Auscultation and Non Labored Respirations
Cardiac: Regular Rhythm and S1/S2
Breast: Deferred by me
GI: Soft, Nontender, Nondistended and Normal Bowel Sounds
Genito-urinary: No Costovertebral Tender
Musculoskeletal: No Clubbing, No Cyanosis and No Edema
Skin: Warm
Neuro: Awake, Alert, Oriented, AO x 3 and No Motor Deficits
Psych: Calm
[2025-02-16 12:56] LABS: Hematocrit 23.1 % (37.0-47.0); Hemoglobin 7.7 g/dL (12.0-16.0)
--- NOTE | 2025-02-16 13:41 | CM ---
Addendum entered by Rosalie Celaya RN 02/16/25 16:11:
Reviewed pricing with patient's daughter. The Ticagrelor is $31 through [facility] at [facility]. Patient's daughter prefers to use the Ticagrelor versus the Brilinta. Updated patient's profile.
Original Note:
Pricing on Brilinta through the patient's prescription plan is $111 for a 30 day supply. Brilinta is a tier 3 medication.
--- NOTE | 2025-02-16 14:27 | CM ---
Chart reviewed. Patient lying in bed, son at bedside. Patient is independent of ADLS, lives with her daughter in a split level, 2 KIRSTEN, ambulates with a SPC. Plan is for the patient to return home. CM to follow
[2025-02-16 14:31] LABS: Glucose - Point of Care 229 mg/dl (70-99)
[2025-02-16 14:31] LABS: Glucose - Point of Care 116 mg/dl (70-99)
[2025-02-16 14:31] LABS: Glucose - Point of Care 127 mg/dl (70-99)
--- NOTE | 2025-02-16 14:49 | PTCARENOTE ---
Assessment unchanged; Sinus Bradycardia on monitor and VSS; family at bedside.
[2025-02-16 15:16] LABS: Phospholipase A2 Receptor, IgG <1:10 (<1:10)
[2025-02-16] MEDS: CRESTOR 40 MG PO (17:10)
[2025-02-16] MEDS: NSS 500 IV (17:14)
[2025-02-16 17:25] LABS: Glucose - Point of Care 209 mg/dl (70-99)
--- NOTE | 2025-02-16 17:27 | W.PN.CD ---
Today's Communication / Plan
-
dec coreg to 6.25 for evening dose
likely home tomorrow if feeling well
Impression / Plan
-
RCA STEMI
-admitted with syncope and NSTEMI with plan for interval cath but became bradycardic and hypotensive on the floor 02/15 with heart block and inferior ST elevations
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
-radid improvement in blood pressure and resolution of heart block post cath
-extubated 02/15
-today intermittently hypertensive (though hypotensive after coreg 25 and nifedipine XL 30 02/26 AM)
HTN:
- BP very high on admit
- cont. home meds (dose reduce coreg to 6.25 and increase as tolerated)
- if still hypertensive consider hydral
Severe mixed hyperlipidemia:
- LDL 218 on admit (she confirms she was taking rosuvastatin 20 mg daily)
- increased rosuvastatin to 40mg daily => will need PCSK9i and possible additional agents as outpatient to achieve LDL<55
DM, type II
-A1c 9
-needs aggressive diabetic control
-would benefit from SGLT2i as outpatient
anemia
- No obvious bleeding, groin site clean
- 7.7 and stable
- continue to monitor
CKD:
- Cr 2.1, now 2.6 post cath
- Nephrology on board
- trend
Discussed with nursing staff and daughter at bedside
Physical Exam
Vital Signs/Labs
Vital Signs
Temp Pulse Resp BP Pulse Ox
36.8 C 58 20 157/65 95
02/16/25 16:00 02/16/25 17:02 02/16/25 17:00 02/16/25 17:02 02/16/25 17:00
02/16/25 12:47
02/16/25 04:06
PT 14.2 Sec (11.4-14.6) 02/15/25 11:15
INR 1.07 02/15/25 11:15
APTT 30.6 Sec (23.4-35.0) 02/16/25 04:06
Magnesium 1.7 mg/dl (1.6-2.3) 02/16/25 04:06
Triglycerides 105 mg/dl (10-149) 02/13/25 04:56
LDL Cholesterol, Calc 218 mg/dl 02/13/25 04:56
VLDL Cholesterol, Calc 21 mg/dl (0-30) 02/13/25 04:56
HDL Cholesterol 50 mg/dl 02/13/25 04:56
02/13/25
04:56
Omw-H-Pbmrjoeddxe Pept [id number]
LAB Results
02/13/25 02/14/25 02/14/25
18:09 03:13 08:00
Troponin I 1.070 H* D 1.310 H* Cancelled
02/14/25 02/14/25 02/15/25
10:28 17:48 11:15
Troponin I 1.430 H* 0.950 H* D 0.767 H*
02/15/25 02/15/25 02/16/25
16:14 22:16 04:06
Troponin I 3.910 H* D 12.900 H* D 17.700 H* D
Physical Exam
Constitutional: Comfortable
Cardiovascular: Rhythm & rate is regular
Respiratory: Respiratory effort normal
Neuro/Psych: AO x 3
Other: Cath Site
cdi
Data Reviewed
-
Date of Service: February 16, 2025
Medical Decision Making: Reviewed Test Results
EKG: Tracing Personally Visualized and interpreted
Echo: Tracing Personally Visualized and interpreted
Labs: Labs Reviewed by me
[2025-02-16] MEDS: NOVOLOG FLEXPEN-MODERATE RESISTANCE 3 UNITS SC (17:56)
[2025-02-16 18:02] LABS: ANA, IgG Reflex to HEp-2 None Detected (None Detected)
--- NOTE | 2025-02-16 18:02 | PTCARENOTE ---
Sinus Bradycardia on monitor and VSS; pt OOB to chair and family at bedside; assessment unchanged.
[2025-02-16] MEDS: COREG 6.25 MG PO (20:14)
--- NOTE | 2025-02-16 21:00 | PTCARENOTE ---
Assumed care of pt from vargas RN. Walking rounds completed. Pt AAOx3. JACOB. SR to sinus nita on the tele monitor w/ occasional vent bigeminy. HR 50-60s. BP elevated. 170s/70s. PM coreg administered. Will consider hydralazine is BP remains high.
PA aware. Palpable pulses throughout. Trace generalized edema. Pt on RA. POX 93-95%. Lung sounds diminished in B/L bases. Deep breathing encouraged. Abdomen round. +BSx4. Gordillo catheter intact and draining clear/yellow urine. Right groin site
intact. Sterile 4x4 present. No bleeding or hematoma. Right IJ cordis and PIVx3 intact. Pt assisted from the chair to the bed w/ assist x1. See worklist for full nursing assessment and interventions. Call burton within reach.
[2025-02-16 21:16] LABS: Glucose - Point of Care 202 mg/dl (70-99)
[2025-02-16] MEDS: LANTUS 0.15 UNITS SC (21:17)
[2025-02-17] VITALS (18 sets, daily range): BP systolic 102–197; BP diastolic 45–75; BMI 31.8
--- NOTE | 2025-02-17 00:07 | PTCARENOTE ---
Pt reassessed. Pt is Sinus nita to sinus rhythm on the tele monitor. Pt will occasionally go into vent bigeminy but quickly breaks out of it back to SR. HR 50-60s. BP remains elevated. PA aware. SBP 150-170s. Pt remains on RA. POX 92-96%. Right
groin site soft. No bleeding or hematoma. Gordillo catheter intact and draining yellow urine. Right IJ cordis maintained. No c/o pain at this time. Call burton within reach.
[2025-02-17] MEDS: APRESOLINE 10 MG IV (02:13)
[2025-02-17 03:28] LABS: Hematocrit 25.9 % (37.0-47.0); Hemoglobin 8.6 g/dL (12.0-16.0); Mean Corp Hgb Conc. 33.2 g/dL (33.0-37.0); Mean Corpuscular Volume 85.8 fL (81.0-99.0); Platelet Count 183 10^3/uL (130-400); Red Cell Dist. Width 13.9 % (11.5-14.5)
--- NOTE | 2025-02-17 03:50 | PTCARENOTE ---
Pt reassessed. Remains SR to sinus nita on the tele monitor. HR 50-60s. SBPs up to 190s. PA aware. Hydralazine administered. SBPs lowered to 130s-140s. Gordillo catheter intact and draining yellow urine. Labs drawn and sent. EKG completed. Pt
repositioned in bed. No pain at this time. Call burton within reach.
[2025-02-17 03:58] LABS: ALT (SGPT) 53 U/L (0-35); AST (SGOT) 50 U/L (14-36); Albumin 3.0 g/dl (3.5-5.0); Alkaline Phosphatase 74 U/L (38-126); Blood Urea Nitrogen 37 mg/dl (7-17); Calcium 8.1 mg/dl (8.4-10.2); Carbon Dioxide 23 mmol/L (22-30); Chloride 110 mmol/L (98-107); Estimated Creatinine Clearance 15 ml/min; Glucose 120 mg/dl (70-99); Magnesium 2.0 mg/dl (1.6-2.3); Potassium 4.3 mmol/L (3.5-5.1); Sodium 136 mmol/L (135-145); Total Protein 5.3 g/dl (6.3-8.2); eGFR 19.69
--- NOTE | 2025-02-17 04:44 | W.PN.UPDATE ---
Update Note
Progress Note Update
Cardiology Update Note:
-Pt did well overnight
-Off all drips, swan and a-line d/c'd yesterday
-H/H stable @ 8.6/25.9, was 7.7/23.1 yesterday
-Creatinine 2.5, down from 2.6 yesterday
-BP responded well to 10 mg IV Hydralazine last night bringing SBP to 130's. Consider addition of PO Hydralazine to antihypertensive meds
--- NOTE | 2025-02-17 07:46 | W.PN.INTV ---
Today's Communication / Plan
Recommendations
CT head pending
Antihypertensives adjusted
If transferred to telemetry utilities operator will sign off-call pulmonary if respiratory issues arise
Assessment
-
Patient is a 74-year-old female with previous history of diabetes, hypertension, chronic kidney disease presenting with syncopal episode at home, found by daughter on the floor. Notably she was down for 5 to 10 seconds, with loss of consciousness.
On arrival to ER she had elevated troponin and D-dimer. She was noted to be in hypertensive urgency. She was started on nitro and heparin drip. Admitted to ICU for further management. Transferred out 02/13 following improvement of BP. R/o
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
s/p brief cardiac arrest, s/p CPR (<10 secs) with ROSC-02/15/2025
Elevated troponin, rule out NSTEMI, on IV heparin
Status post emergent cardiac catheterization 02/15/2025-temporary venous pacemaker, 100% thrombotic occlusion proximal RCA in addition to OM 2 and mid circumflex lesions, PCI proximal RCA
Hypertensive urgency on nitro drip--resolved
Syncopal episode
Elevated D-dimer
Hyperkalemia
ANGELY, creatinine 2.1
Anemia, mild
Conditions present prior to admission:
Type 2 diabetes
Chronic transaminitis/Fatty Liver
Hypertension
Hyperlipidemia
Chronic kidney disease
Cervical Radiculopathy
Urine Proteinuria
Low Back Pain/DISC DIS LUMBAR
HNP LS spine-EDGAR
bilat carpal tunnel syndrome (2007)
ervical and LS herniated discs with radicular pain LUE and RLE-epidural injections intermittent (1996)
Arthritis
s/p cardiac Cath - [facility] 10/2016
Plan
Respiratory status and hemodynamics have improved status post emergent cardiac catheterization
Patient successfully extubated
Supplemental oxygen as needed-currently 94% on room air
BiPAP if needed-has not needed
Incentive spirometry encouraged
Aspiration precautions
Nebulizers if needed-currently not bronchospastic
CXR/CT reviewed indicating no acute disease
VQ scan negative/Duplex negative--no further testing needed
Cardiology following-correspondence reviewed
Status post brief CPR 02/15/2025
Cardiac catheterization results summarized above-status post successful RCA stent
Nitroglycerin drip continues for significant hypertension
Follow-up CT head 02/17/2025 pending-nonfocal neurologic exam
ANGELY present, CKD history
Renal following-correspondence reviewed
Void trials
Follow urine output, critical I/Os
Replete electrolytes as needed
Antihypertensives adjusted-ACEI on hold with ANGELY-Procardia increased
No signs/symptoms suspicious for infectious etiology at this time
Observe off antibiotics for now
Follow fever trend, WBC count
CBC stable, no signs of bleeding or coagulopathy.
DVT prophylaxis as assessed based on risk, including mechanical SCDs
Can transfuse if indicated for Hb <7, plt < 10
INR WNL
No prior h/o thyroid disease
H/o diabetes, can continue on home meds, SS for coverage
HbA1c 9.0--poor control
Would consult DM MAJOR CASE DETECTIVE for education/management
DVT prophylaxis recommended
Nutrition
Early mobilization once cardiac clearance
Dr. Davey updated daughter at the bedside 02/16/2025
The patient may be transferred to telemetry-utilities operator will sign off-call pulmonary if respiratory issues arise
Reviewed the patient�s pertinent medical records including radiographs, microbiology, laboratory evaluations, and��discussion with primary team, consultants, pharmacy, nutrition, physical therapy, case management, charge nurse, critical care
nursing, and respiratory therapy.
Diagnostic Data
Chest X-Ray: no acute disease
CT Scan: HCT 02/12/25- No acute intracranial abnormality noted. Mild atrophy. Mild periventricular small vessel ischemic disease. Old left thalamic lacunar infarct
US Legs: 02/12/25-No sonographic evidence for lower extremity venous thrombosis.
Echo: 02/13/25- 1. Normal left ventricle and right ventricle systolic function.
2. Mild inferior to inferolateral wall hypokinesis is suspected.
3. Aortic valve sclerosis without stenosis.
4. Mild left ventricular hypertrophy.
5. No prior study for comparison.
Reports and relevant images were personally reviewed.
Subjective Dataa
Subjective Data
Date of Service:
Date of Service: February 17, 2025
Chief Complaint: Supervisor Detasseling Crew Follow Up and Pulmonary Follow Up
Subjective:
No complaints of shortness of breath or pain
Review of Systems
General: Other (Per HPI )
Objective Data
Data Reviewed
Vital Signs / I&O / Oxygen:
Vital Signs
Temp Pulse Resp BP Pulse Ox
97.8 F 66 18 152/62 99
02/17/25 04:00 02/17/25 06:00 02/17/25 06:00 02/17/25 06:00 02/17/25 06:00
Intake and Output
02/16/25 02/17/25 02/18/25
06:59 06:59 06:59
Intake Total 1037.6 / 1059.9 299.9 / 299.9
Output Total 640 / 660 895 / 895
Balance 397.6 / 399.9 -595.1 / -595.1
SaO2 99
Nasal Cannula flow liters per 2
minute
Physical Exam
General: Respiratory Distress (n), Comfortable and Other (NAD)
HEENT: Normocephalic, Anicteric and Moist Mucous Membranes
Cardiovascular: Regular Rhythm and Murmur (n)
Respiratory: Clear, Wheeze (n), Crackles (n), Non-Labored Respirations and Accessory Resp Muscle Use (n)
GI: Soft, Non Distended and Non Tender
Neurology: Awake, Alert, Oriented and No Motor Deficits
Skin: Warm, Good Color, Cyanosis (n), Jaundice (n) and Rash (n)
Labs/Micro/Reports
Lab Data
02/17/25 03:15
02/17/25 03:15
Microbiology
02/12/25 22:00 Urine Urine Culture - Final
--- NOTE | 2025-02-17 08:00 | PTCARENOTE ---
Received pt from date night caregiver RN; pt AAOx3 and resting comfortably in chair with family at bedside; NSR on monitor and VSS: updated [employer] regarding BP Coreg dose increased per [employer]; RIJ Cordis and PIVx3 all patent; Lungs diminished;
hypoactive bowel sounds; Gordillo catheter draining yellow urine; palpable pulses throughout; trace generalized edema noted; see nursing documentation for further details.
--- NOTE | 2025-02-17 08:19 | W.PN.NEPH.PH ---
Today's Communication / Plan
-
Escalate Procardia to 30 mg twice daily
Follow basic metabolic panel
Kidney function slowly improving remains nonoliguric via Shell
Assessment/Plan
-
Impression:
ANGELY (unknown baseline)
Syncope
Hypertensive urgency/emergency
Diabetes
Proteinuria
Positive troponin/recent ND by EKG
History of fatty liver disease
Plan:
ANGELY:
ANGELY cr down to 2.5 after brief card arrest and S/p PCI 02/15
non oliguric with shell-do not remove, renal US no hydro and no right ELVIA, left not visualized with bowel gas
UA bland but U PCR 6.6gm/gm of cr-serologies pending, complements normal
patient could have underlying diabetic nephropathy or functional proteinuria in the setting of accelerated hypertension
PCWP of 18 on cath so no diuretics yet
Holding ANDREW inhibitor in setting of acute renal failure, will adjust to Procardia to 30 mg twice daily
case d/w daughter who is an ER doc at [employer]
d/w nursing
-
-
Date of Service: February 17, 2025
CC / HPI / ROS
-
Chief Complaint:
Acute kidney injury
History of Present Illness:
Creatinine down to 2.5
Hemodynamically stable on current antihypertensives, off nitro gtt, BP elevated required hydralazine last seen
brief card arrest -low HR and low BP, few compressions. s/p HC with RCA stent on 02/15
Review of Systems:
non Oliguric with shell
No chest pain or shortness of breath
No fevers
Labs
-
Labs:
WBC 8.5 10^3/uL (4.8-10.8) 02/17/25 03:15
RBC 3.02 10^6/uL (4.20-5.40) L 02/17/25 03:15
Hgb 8.6 g/dL (12.0-16.0) L 02/17/25 03:15
Hct 25.9 % (37.0-47.0) L 02/17/25 03:15
Plt Count 183 10^3/uL (130-400) 02/17/25 03:15
Sodium 136 mmol/L (135-145) 02/17/25 03:15
Potassium 4.3 mmol/L (3.5-5.1) 02/17/25 03:15
Chloride 110 mmol/L (98-107) H 02/17/25 03:15
Carbon Dioxide 23 mmol/L (22-30) 02/17/25 03:15
BUN 37 mg/dl (7-17) H 02/17/25 03:15
Creatinine 2.5 mg/dL (0.6-1.0) H 02/17/25 03:15
eGFR 19.69 02/17/25 03:15
Glucose 120 mg/dl (70-99) H 02/17/25 03:15
Calcium 8.1 mg/dl (8.4-10.2) L 02/17/25 03:15
Phosphorus 4.3 mg/dl (2.5-4.5) 02/14/25 03:13
Odm-Q-Jagkfifthmi Pept 71812 pg/ml 02/13/25 04:56
Albumin 3.0 g/dl (3.5-5.0) L 02/17/25 03:15
Physical Exam
-
Vital Signs:
Vital Signs
Temp Pulse Resp BP Pulse Ox
97.8 F 66 18 152/62 99
02/17/25 04:00 02/17/25 06:00 02/17/25 06:00 02/17/25 06:00 02/17/25 06:00
Cardiovascular:: Regular rate and rhythm
Respiratory:: Bilateral: Coarse
Lung Excursion:: Normal
Abdomen:: Nontender and Soft
Bowel Sounds:: Normal
Extremity Edema:: None: Bilateral:
Shell Catheter: Yes
[2025-02-17] MEDS: PROCARDIA XL (EXTENDED RELEASE) 30 MG PO ×2 (08:20→20:52)
[2025-02-17] MEDS: COREG 12.5 MG PO ×2 (08:20→20:51)
[2025-02-17] MEDS: LOW STRENGTH ASPIRIN 81 MG PO (08:21)
[2025-02-17] MEDS: BRILINTA 90 MG PO ×2 (08:21→20:52)
--- NOTE | 2025-02-17 09:11 | PN.CDI ---
CDI
- -
CDI:
Physician Documentation Request
Admit Date: 02/13/25 00:13
Dear Doctor John,
Please review the following and provide your response in the progress notes.
Clinical Indicators:
- 02/12 H&P Update note 'Hypertensive emergency ...arriving with systolic BP in the 200s and following a syncopal episode. She has elevated troponin. Picture is consistent with hypertensive emergency'
- 02/16 PN 'Hypertensive urgency'
- Patient with NSTEMI, ANGELY
Clarify which, if any of the following, is a more accurate diagnosis reflecting the type and acuity of the documented hypertension:
Hypertensive Urgency - B/P is severely elevated (systolic > or = to 180 or diastolic > or = to 110) but there is no associated organ damage. Symptoms may include: headache, shortness of breath, nosebleeds, severe anxiety. Treatment usually consists
of addition to or adjusting of oral medications and does not generally necessitate hospitalization.
Hypertensive Emergency - B/P is severely elevated (systolic > or = to 180 or diastolic > or = to 110) but can occur at lower levels especially in patients who did not previously have high B/P. There is usually associated organ damage. Symptoms may
include: memory loss, LOC, CVA, CA, angina, renal failure, pulmonary edema. Generally requires more aggressive treatment and a hospitalization.
Other (please specify)
Use of terms such as suspected, likely, concern for, or probable (associated with a specific diagnosis that is being evaluated, monitored, or treated as if it exists) are acceptable and can be coded in the inpatient setting, when documented at the
time of discharge.
Thank you,
Kalyn Chris RN
CDI Specialist
Please use your independent medical judgment in providing your response.
--- NOTE | 2025-02-17 09:12 | W.PN.CD ---
Today's Communication / Plan
-
Check troponin.
Start ezetimibe 10 mg daily.
Start dapagliflozin 10 mg daily.
Outpatient GLP-1 analogs.
Case management consult.
Reticulocyte count.
Impression / Plan
-
Impression/Plan: 74 y/o male with HTN, HLD, IDDM and CKD admitted with syncope and hypertensive emergency, subsequently developing inferior ST elevations with associated bradycardia/hypotension (Code 9) prompting emergent cardiac catheterization
and PCI of acutely occluded RCA.
#RCA STEMI
-Acute, threat to life.
-Admitted with syncope and NSTEMI with plan for interval cath but became bradycardic and hypotensive on the floor 02/15 with heart block and inferior ST elevations.
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
-Rapid improvement in blood pressure and resolution of heart block post cath.
-Check one more troponin to assess peak.
-Maintain DAPT for at least 12 months, followed by aspirin indefinitely.
-Continue carvedilol, statin.
#HTN
-Chronic, severely elevated.
-Continue carvedilol 12.5 mg BID, nifedipine 30 mg BID and hydralazine PRN.
-If BP needs more control, start doxazosin 1 mg daily and monitor.
#Severe mixed hyperlipidemia
-Chronic, uncontrolled.
-Total cholesterol = 289, LDL = 218, HDL = 50, Triglycerides = 105.
-Continue increased rosuvastatin 40mg daily.
-Start ezetimibe 10 mg daily.
-Will likely need PCSK9i and possible additional agents as outpatient to achieve goal LDL < 55.
#DM, type II
-Chronic, uncontrolled.
-HbA1c = 9%.
-Start dapagliflozin 10 mg daily.
-Patient would benefit from outpatient GLP-1 analogs.
-Case management consult.
#Anemia
-Normocytic. Appears acute on chronic.
-No obvious bleeding.
-Hbg = 8.6, improved from yesterday.
-Fe studies essentially normal.
-B12 normal. Folate > 20.
-Check reticulocyte index - likely related to CKD.
#CKD
-Appears to be chronic with nephrotic range proteinuria (6 grams).
-BUN 37, Creatinine 2.5.
-Work up per nephrology.
Subjective/Interval History:
Weight is up 2.6 kg from baseline.
HR in the 60-70's.
SaO2 = 95% on RA.
Remains severely hypertensive.
Hydralazine 10 mg given at 02:13.
Carvedilol previously increased to 25 mg BID, then decreased to 6.25 mg, then re-increased to 12.5 mg BID this morning.
Nifedipine 30 mg increased to BID.
With these changes, BP is much better contolled.
CT Head ordered out of concern for hypertensive emergency, negative for ICH.
Complains of mild rib pain (likely from brief CPR).
DATA:
Cardiac Catheterization/PCI, 02/15/2025:
CONCLUSIONS
1. Cardiac arrest (bradycardia, PEA) in setting of inferior STEMI. ROSC successfully obtained with brief CPR and epi with normal mentation post arrest.
2. Intubation for airway protection.
3. Successful insertion of a temporary venous pacemaker from the right groin. Pacing ultimately not used given significant worsening of perfusion pressure with RV pacing.
4. Left heart catheterization with elevated LV filling pressure and no aortic stenosis.
5. Coronary angiography demonstrating culprit 100% thrombotic occlusion in the proximal RCA and non-culprit obstructive disease in the OM2 and mid-LCx.
6. Successful PCI with DESx1 to prox RCA (2.5x18 mm Figueroa [place] JOSE ANGEL post dilated to high pressure with a 2.5mm NC balloon at stent edges and 2.75 mm NC balloon in mid stent).
7. Right heart catheterization with right greater than left sided filling pressures, mild pulmonary hypertension, and supra-normal cardiac index while on high dose pressor and inotrope.
8. Insertion of right radial [place] for invasive monitoring. Insertion of OG tube and administration of ticagrelor.
TTE, 02/13/2025:
SUMMARY
1. Normal left ventricle and right ventricle systolic function.
2. Mild inferior to inferolateral wall hypokinesis is suspected.
3. Aortic valve sclerosis without stenosis.
4. Mild left ventricular hypertrophy.
5. No prior study for comparison.
Physical Exam
Vital Signs/Labs
Vital Signs
Temp Pulse Resp BP Pulse Ox
36.6 C 72 18 183/66 95
02/17/25 08:00 02/17/25 08:30 02/17/25 08:00 02/17/25 08:01 02/17/25 08:56
02/15/25 02/16/25 02/17/25
11:59 11:59 11:59
Actual Weight 66.6 kg
02/17/25 03:15
02/17/25 03:15
PT 14.2 Sec (11.4-14.6) 02/15/25 11:15
INR 1.07 02/15/25 11:15
APTT 30.6 Sec (23.4-35.0) 02/16/25 04:06
Magnesium 2.0 mg/dl (1.6-2.3) 02/17/25 03:15
Triglycerides 105 mg/dl (10-149) 02/13/25 04:56
LDL Cholesterol, Calc 218 mg/dl 02/13/25 04:56
VLDL Cholesterol, Calc 21 mg/dl (0-30) 02/13/25 04:56
HDL Cholesterol 50 mg/dl 02/13/25 04:56
02/13/25
04:56
Ecc-N-Enwuszwzzcf Pept 99460
LAB Results
02/14/25 02/14/25 02/15/25
10:28 17:48 11:15
Troponin I 1.430 H* 0.950 H* D 0.767 H*
02/15/25 02/15/25 02/16/25
16:14 22:16 04:06
Troponin I 3.910 H* D 12.900 H* D 17.700 H* D
Physical Exam
Constitutional: No acute distress and Comfortable
EENT: Anicteric and Moist mucous membranes
Cardiovascular: Rhythm & rate is regular, Pedal edema is absent, JVD pressure is normal, S1S2 is normal and Murmur/rub/gallop absent
Respiratory: Respiratory effort normal, Lungs clear to auscul., Wheeze Absent, Crackles Absent and Rhonchi Absent
GI: Soft, Distention absent, Flat, Non tender and Normal bowel sounds
Neuro/Psych: AO x 3
Other: Cath Site (Right radial/femoral access is C/D/I.)
Data Reviewed
-
Date of Service: February 17, 2025
Medical Decision Making: Reviewed Test Results, Independent Historian Assessment and Test Interpretation
EKG: Tracing Personally Visualized and interpreted and Report Reviewed by me
Echo: Report Reviewed by me
X-Ray/CT/US/MRI/NUC/PET: Image Personally Visualized and interpreted and Report Reviewed by me
Medical Tests (PFT, Pathology etc): Image Personally Visualized and interpreted and Report Reviewed by me
Labs: Labs Reviewed by me
Old Records: Reviewed
[2025-02-17] MEDS: NOVOLOG FLEXPEN-MODERATE RESISTANCE 5 UNITS SC (09:14)
[2025-02-17] MEDS: NOVOLOG FLEXPEN 4 UNITS SC ×3 (09:15→17:05)
[2025-02-17 09:18] LABS: Glucose - Point of Care 269 mg/dl (70-99)
[2025-02-17] MEDS: COREG PO (09:20)
[2025-02-17] MEDS: SENOKOT-S 1 TABLET PO (09:28)
[2025-02-17 11:18] LABS: Glucose - Point of Care 202 mg/dl (70-99)
--- NOTE | 2025-02-17 11:20 | PTCARENOTE ---
Assessment unchanged; Sinus Bradycardia on monitor and VSS; pt resting comfortably in chair and family at bedside.
--- NOTE | 2025-02-17 11:26 | CM ---
Chart reviewed. Patient is independent of ADLS, lives with her daughter in a split level house, [address], ambulates with a SPC. Patient is not current with VN and PT is recommending VN. Patient and daughter agree. [facility] Plan is
for the patient to return home with [facility]. CM to follow
[2025-02-17] MEDS: FARXIGA 10 MG PO (12:06)
[2025-02-17] MEDS: ZETIA 10 MG PO (12:06)
[2025-02-17 12:24] LABS: Albumin 3.07 g/dL (3.75-5.01); SPEP IFE Reflex Not Done; Total Protein-Electrophoresis 5.6 g/dL (6.3-8.2)
[2025-02-17 12:25] LABS: Reticulocyte Count 2.0 % (0.4-2.8)
--- NOTE | 2025-02-17 12:50 | CM ---
Pricing on Farxiga through the patient's [employer] [facility] is $133.69 for a 30 day supply.
Jardiance is $1550 for a 30 day supply.
Semaglutide and Tirezepatide is not covered under the patient's prescription plan
Reviewed pricing with the patient and daughter. Pricing is too costly. Notified ROMAN Rodriguez
[2025-02-17] MEDS: NOVOLOG FLEXPEN-MODERATE RESISTANCE 3 UNITS SC (12:58)
[2025-02-17 13:48] LABS: Serine Protease-3, IgG 0 AU/mL (0-19)
--- NOTE | 2025-02-17 14:13 | W.PN.HOSP.TC ---
Today's Communication/Plan
-
Continue monitoring blood pressure and heart rate.
Downgrade to IVU
Assessment / Plan
Assessment / Plan
Impression:
HPI: 74-year-old with past medical history for type 2 diabetes, hypertension, hyperlipidemia, CKD presented to us with syncopal episode at home. Patient took shower. As she was getting dressed in the bathroom, she felt nauseous and remember
anything afterwards. Daughter heard the fall. She found mother on the floor. She was passed out for 5 to 10 seconds. Patient denied any prior headache dizzy. Fever chills cough congestion. Patient denied any chest pain or short of breath.
Patient denied any abdominal pain, nausea, vomiting or diarrhea. Patient denied dysuria hematuria.
02/15
Developed bradycardia and hypotension, loss of consciousness, briefly coded and received 1 mg of epinephrine and short run of CPR, patient was fully awake afterward, patient was taken urgently for cardiac cath where she had 100% occlusion of
proximal RCA, also patient intubated on cardiac cath.
Later patient extubated, bradycardia improved and blood pressure continued to improve.
Assessment/plan.
Non-STEMI/STEMI
Elevated troponin, status post urgent cardiac cath with 100% occlusion of proximal RCA
Aspirin/Brilinta/Crestor
Cardiac arrest/PEA /bradycardia
Patient briefly coded and ROSC achieved quickly.
Fully awake after good.
Underwent urgent cardiac cath
Acute hypoxic respiratory failure
Patient intubated after cardiac cath but extubated later in the ICU
Weaned to 2 L nasal cannula
Currently on room
Hypertensive emergency.
Blood pressure improved.
Bradycardia improved.
Blood pressure very labile.
Cardiology Carvedilol dose.
# Syncope likely secondary to bradycardia event caused by inferior ME
Head CT negative- (repeat CT pending after current event)
Elevated D-dimer concerning for PE
Unable to get chest CT PE due to ANGELY
Lower extremity Dopplers negative for DVT
V/Q scan low risk
ANGELY on CKD
Creatinine 2.1, baseline 0.8, in 2009
Nephrology following, who suspects that this is patient's baseline
Anemia
Hemoglobin dropped to 7.7.
Repeat 8.6 without transfusion.
Continue to monitor
Hyperkalemia
Resolved, s/p lokelma
#Uncontrolled Type 2 diabetes with hyperglycemia
Hemoglobin A1c 9.0
Patient is on glargine 30 units every afternoon at night
She is currently receiving Lantus 15 units at bedtime while in the hospital
Start NovoLog 4 units AC 3 times daily
Hold metformin secondary to ANGELY
#Chronic transaminitis
#Hepatic steatosis
- AST 62, ALT 49
- mild
# Hyperlipidemia
Crestor increased
CODE STATUS: Full code
Family communication: Discussed with family at bedside
Disposition: Continue monitoring blood pressure and heart rate.
Downgrade to IVU
Total time spent on today's encounter was 74 minutes which included time spent in counseling the patient/family regarding diagnosis and treatment plan as listed above, goals of care, and symptom management. Case was discussed with nursing staff,
specialists, and care coordinators/case management. All labs and imaging personally reviewed by me. Remainder the time spent in detailed review of previous records, lab data, imaging, and other medical provider documentation.
Anticipated Discharge: 24 - 48 hours
Subjective/Interval History
-
Date of Service: February 17, 2025
Patient seen and examined at bedside, denies any chest pain or shortness of breath, no abdominal pain, no nausea, no vomiting, complaining of constipation.
CT head shows no acute finding.
Objective Data
-
Labs:
Laboratory Results
02/17/25
03:15
WBC 8.5
Hgb 8.6 L
Hct 25.9 L
Plt Count 183
Sodium 136
Potassium 4.3
Chloride 110 H
Carbon Dioxide 23
BUN 37 H
Creatinine 2.5 H
Glucose 120 H
Calcium 8.1 L
Total Bilirubin 0.5
AST 50 H
ALT 53 H
Alkaline Phosphatase 74
Vital Signs:
Vital Signs
Temp Pulse Resp BP Pulse Ox
97.8 F 47 20 102/45 92
02/17/25 11:19 02/17/25 11:16 02/17/25 11:19 02/17/25 11:16 02/17/25 11:19
I&O
02/16/25 02/17/25 02/18/25
06:59 06:59 06:59
Intake Total 1037.6 / 1059.9 299.9 / 299.9 520 / 520
Output Total 640 / 660 895 / 895 150 / 150
Balance 397.6 / 399.9 -595.1 / -595.1 370 / 370
Physical Exam
-
General: Well Developed, Well Nourished, No Apparent Distress and Comfortable
HEENT: Normocephalic, Atraumatic, Moist Mucous Membranes, No Ptosis, PERRLA and Nose Appears Normal
Respiratory: Clear to Auscultation and Non Labored Respirations
Cardiac: Regular Rhythm and S1/S2
Breast: Deferred by me
GI: Soft, Nontender, Nondistended and Normal Bowel Sounds
Genito-urinary: No Costovertebral Tender
Musculoskeletal: No Clubbing, No Cyanosis and No Edema
Skin: Warm
Neuro: Awake, Alert, Oriented, AO x 3 and No Motor Deficits
Psych: Calm
[2025-02-17 16:26] LABS: Glucose - Point of Care 153 mg/dl (70-99)
--- NOTE | 2025-02-17 16:44 | PTCARENOTE ---
Assessment unchanged; NSR on monitor and VSS; pt resting comfortably in chair with family at bedside.
[2025-02-17] MEDS: NOVOLOG FLEXPEN-MODERATE RESISTANCE 1 UNITS SC (17:05)
[2025-02-17] MEDS: CRESTOR 40 MG PO (17:05)
--- NOTE | 2025-02-17 17:39 | PTCARENOTE ---
Pt transferred to IVU; family and belongs sent to new room; report given to Beatriz IVU RN.
--- NOTE | 2025-02-17 18:00 | PTCARENOTE ---
Pt received from CVICU at 1745 via recliner chair. Pt wanted to stay in the chair until later. Pt denies any pain or discomfort. O2 on at 2LNC. SR, rate in the 60's to 70's. No c/o offered. Family at the bedside.
[2025-02-17 22:04] LABS: Glucose - Point of Care 143 mg/dl (70-99)
[2025-02-17] MEDS: LANTUS 0.15 UNITS SC (22:28)
[2025-02-18] VITALS (12 sets, daily range): BP systolic 104–159; BP diastolic 46–66; PULSE 55–58; O2SAT 96; BMI 32.0
[2025-02-18] MEDS: TYLENOL 650 MG PO (04:22)
[2025-02-18 04:42] LABS: Hematocrit 23.0 % (37.0-47.0); Hemoglobin 7.5 g/dL (12.0-16.0); Mean Corp Hgb Conc. 32.6 g/dL (33.0-37.0); Mean Corpuscular Volume 87.5 fL (81.0-99.0); Platelet Count 166 10^3/uL (130-400); Red Cell Dist. Width 13.9 % (11.5-14.5)
[2025-02-18 05:29] LABS: ALT (SGPT) 39 U/L (0-35); AST (SGOT) 32 U/L (14-36); Albumin 3.0 g/dl (3.5-5.0); Alkaline Phosphatase 72 U/L (38-126); Blood Urea Nitrogen 40 mg/dl (7-17); Calcium 8.1 mg/dl (8.4-10.2); Carbon Dioxide 23 mmol/L (22-30); Chloride 109 mmol/L (98-107); Estimated Creatinine Clearance 15 ml/min; Glucose 94 mg/dl (70-99); Potassium 4.3 mmol/L (3.5-5.1); Sodium 137 mmol/L (135-145); Total Protein 5.5 g/dl (6.3-8.2); eGFR 18.78
--- NOTE | 2025-02-18 06:09 | PTCARENOTE ---
Ot NSR on monitor, VSS. Pt c/o generalized discomfort. Tylenol PRN given. Pt ambulates with x 1 assist[address] Safety measures in place, call burton w/in reach
--- NOTE | 2025-02-18 07:34 | W.PN.CD ---
Today's Communication / Plan
-
remove cordis and ambulate
if feeling well with ambulation, ok for discharge
needs post cath follow up and establish cardiology care with our office
will check BMP end of next week and determine timing of repeat cath based on results
Impression / Plan
-
Impression/Plan: 74 y/o male with HTN, HLD, IDDM and CKD admitted with syncope and hypertensive emergency, subsequently developing inferior ST elevations with associated bradycardia/hypotension and brief PEA arrest prompting emergent cardiac
catheterization and PCI of acutely occluded RCA.
#RCA STEMI
-Admitted with syncope and NSTEMI with plan for interval cath but became bradycardic and hypotensive on the floor 02/15 with heart block and inferior ST elevations.
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
-Rapid improvement in blood pressure and resolution of heart block post cath.
-Maintain DAPT for at least 12 months, followed by aspirin indefinitely.
-Continue carvedilol, statin.
-could benefit from PCI of non-culprit LCx disease but given ANGELY and low GFR will await normalization of creatinine on outpatient labs prior to scheduling
#HTN
-Chronic, severely elevated.
-Continue carvedilol 12.5 mg BID, nifedipine 30 mg BID
-If BP needs more control, start doxazosin 1 mg daily and monitor.
#Severe mixed hyperlipidemia
-Chronic, uncontrolled.
-Total cholesterol = 289, LDL = 218, HDL = 50, Triglycerides = 105.
-Continue increased rosuvastatin 40mg daily.
-Cont. ezetimibe 10 mg daily.
-Will likely need PCSK9i and possible additional agents as outpatient to achieve goal LDL < 55.
#DM, type II
-Chronic, uncontrolled.
-HbA1c = 9%.
-Start dapagliflozin 10 mg daily.
-Patient would benefit from outpatient GLP-1 analogs.
-Case management consult.
#Anemia
-Normocytic. Appears acute on chronic.
-No obvious bleeding.
-Hbg = 7.5, improved from yesterday.
-Fe studies essentially normal.
-B12 normal. Folate > 20.
-Check reticulocyte index - likely related to CKD.
#CKD
-Appears to be chronic with nephrotic range proteinuria (6 grams).
-BUN 37, Creatinine 2.5.
-Work up per nephrology.
Subjective/Interval History:
BP improved this morning
HCT yesterday done for headache in setting of hypertension concerning for ICH was negative
Feels well, no concerns or complaints
DATA:
Cardiac Catheterization/PCI, 02/15/2025:
CONCLUSIONS
1. Cardiac arrest (bradycardia, PEA) in setting of inferior STEMI. ROSC successfully obtained with brief CPR and epi with normal mentation post arrest.
2. Intubation for airway protection.
3. Successful insertion of a temporary venous pacemaker from the right groin. Pacing ultimately not used given significant worsening of perfusion pressure with RV pacing.
4. Left heart catheterization with elevated LV filling pressure and no aortic stenosis.
5. Coronary angiography demonstrating culprit 100% thrombotic occlusion in the proximal RCA and non-culprit obstructive disease in the OM2 and mid-LCx.
6. Successful PCI with DESx1 to prox RCA (2.5x18 mm [place] JOSE ANGEL post dilated to high pressure with a 2.5mm NC balloon at stent edges and 2.75 mm NC balloon in mid stent).
7. Right heart catheterization with right greater than left sided filling pressures, mild pulmonary hypertension, and supra-normal cardiac index while on high dose pressor and inotrope.
8. Insertion of right radial [place] for invasive monitoring. Insertion of OG tube and administration of ticagrelor.
TTE, 02/13/2025:
SUMMARY
1. Normal left ventricle and right ventricle systolic function.
2. Mild inferior to inferolateral wall hypokinesis is suspected.
3. Aortic valve sclerosis without stenosis.
4. Mild left ventricular hypertrophy.
5. No prior study for comparison.
Physical Exam
Vital Signs/Labs
Vital Signs
Temp Pulse Resp BP Pulse Ox
36.6 C 57 20 133/46 99
02/18/25 07:01 02/18/25 06:30 02/18/25 07:01 02/18/25 04:02 02/18/25 07:01
02/17/25 02/18/25 02/19/25
06:59 06:59 06:59
Actual Weight 66.6 kg 67 kg
02/18/25 04:28
02/18/25 04:28
PT 14.2 Sec (11.4-14.6) 02/15/25 11:15
INR 1.07 02/15/25 11:15
APTT 30.6 Sec (23.4-35.0) 02/16/25 04:06
Magnesium 2.0 mg/dl (1.6-2.3) 02/17/25 03:15
Triglycerides 105 mg/dl (10-149) 02/13/25 04:56
LDL Cholesterol, Calc 218 mg/dl 02/13/25 04:56
VLDL Cholesterol, Calc 21 mg/dl (0-30) 02/13/25 04:56
HDL Cholesterol 50 mg/dl 02/13/25 04:56
02/13/25
04:56
Hjb-B-Zimgepvrytb Pept 21719
LAB Results
02/15/25 02/15/25 02/15/25
11:15 16:14 22:16
Troponin I 0.767 H* 3.910 H* D 12.900 H* D
02/16/25
04:06
Troponin I 17.700 H* D
Physical Exam
Constitutional: Comfortable
Cardiovascular: Rhythm & rate is regular
Respiratory: Respiratory effort normal
Neuro/Psych: AO x 3
Data Reviewed
-
Date of Service: February 18, 2025
Medical Decision Making: Reviewed Test Results
EKG: Tracing Personally Visualized and interpreted
Echo: Tracing Personally Visualized and interpreted
Labs: Labs Reviewed by me
[2025-02-18 07:43] LABS: Glucose - Point of Care 86 mg/dl (70-99)
[2025-02-18] MEDS: NOVOLOG FLEXPEN-MODERATE RESISTANCE SC (07:59)
[2025-02-18] MEDS: BRILINTA 90 MG PO (08:00)
[2025-02-18] MEDS: ZETIA 10 MG PO (08:00)
[2025-02-18] MEDS: PROCARDIA XL (EXTENDED RELEASE) 30 MG PO (08:00)
[2025-02-18] MEDS: FARXIGA 10 MG PO (08:00)
[2025-02-18] MEDS: LOW STRENGTH ASPIRIN 81 MG PO (08:00)
--- NOTE | 2025-02-18 08:00 | PTCARENOTE ---
report received from previous RN at change of shift. pt resting in bed, AAOX3, denies pain. SR/SB on telemetry heart rate in 50-60s, pulses weakly palpable, trace edema. pt on room air, sat 95%. lung sounds diminished in bases. active bowel sounds.
shell draining clear yellow urine. Right IJ cordis infusing KVO. see worklist for full nursing assessment and interventions. pt and daughter updated on plan of care
[2025-02-18] MEDS: COREG 12.5 MG PO (08:01)
[2025-02-18] MEDS: SENOKOT-S 1 TABLET PO (08:57)
[2025-02-18] MEDS: NOVOLOG FLEXPEN 4 UNITS SC ×2 (08:57→12:47)
[2025-02-18 09:39] LABS: Glucose - Point of Care 184 mg/dl (70-99)
--- NOTE | 2025-02-18 10:00 | PTCARENOTE ---
pt sitting in chair, called to bedside by daughter, stated she was drowsy and slightly slurring her words, blood sugar 184, otherwise neuro check intact. blood pressure 104/47- pt reports feeling some lightheadedness, assisted back to bed, repeat
blood pressure 111/51. hospitalist and cable worker helper notified.
--- NOTE | 2025-02-18 10:25 | W.PN.NEPH.PH ---
Today's Communication / Plan
-
Decrease Procardia to 30 mg in the evening
Follow BMP
Shell catheter removed this morning
Assessment/Plan
-
Impression:
ANGELY (unknown baseline)
Syncope
Hypertensive urgency/emergency
Diabetes
Proteinuria
Positive troponin/recent [place] by EKG
History of fatty liver disease
Plan:
ANGELY:
ANGELY cr 2.6 after brief card arrest and S/p PCI 02/15
-Hopefully kidney injury is plateaued and creatinine will start trending down tomorrow
non oliguric renal US no hydro and no right LEVIA, left not visualized with bowel gas
UA bland but U PCR 6.6gm/gm of cr-serologies negative complements normal
patient could have underlying diabetic nephropathy or functional proteinuria in the setting of accelerated hypertension
PCWP of 18 on cath so no diuretics yet
Holding ANDREW inhibitor in setting of acute renal failure, maintain Procardia to 30 mg twice daily and carvedilol, but will decrease Procardia back to just evening dosage given a.m. hypotension
case d/w daughter who is an ER doc at [employer]
d/w nursing
-
-
Date of Service: February 18, 2025
CC / HPI / ROS
-
Chief Complaint:
Acute kidney injury
History of Present Illness:
Creatinine up to 2 point
Hemodynamically labile this am
brief card arrest -low HR and low BP, few compressions. s/p HC with RCA stent on 02/15
Review of Systems:
non Oliguric with shell
No chest pain or shortness of breath
No fevers
Labs
-
Labs:
WBC 8.1 10^3/uL (4.8-10.8) 02/18/25 04:28
RBC 2.63 10^6/uL (4.20-5.40) L 02/18/25 04:28
Plt Count 166 10^3/uL (130-400) 02/18/25 04:28
Sodium 137 mmol/L (135-145) 02/18/25 04:28
Potassium 4.3 mmol/L (3.5-5.1) 02/18/25 04:28
Chloride 109 mmol/L (98-107) H 02/18/25 04:28
Carbon Dioxide 23 mmol/L (22-30) 02/18/25 04:28
BUN 40 mg/dl (7-17) H 02/18/25 04:28
Creatinine 2.6 mg/dL (0.6-1.0) H 02/18/25 04:28
eGFR 18.78 02/18/25 04:28
Glucose 94 mg/dl (70-99) 02/18/25 04:28
Calcium 8.1 mg/dl (8.4-10.2) L 02/18/25 04:28
Phosphorus 4.3 mg/dl (2.5-4.5) 02/14/25 03:13
Hlr-I-Dzubhubktgq Pept 76400 pg/ml 02/13/25 04:56
Albumin 3.0 g/dl (3.5-5.0) L 02/18/25 04:28
Physical Exam
-
Vital Signs:
Vital Signs
Temp Pulse Resp BP Pulse Ox
97.9 F 50 20 111/51 95
02/18/25 07:01 02/18/25 09:47 02/18/25 07:01 02/18/25 09:47 02/18/25 09:40
Cardiovascular:: Regular rate and rhythm
Respiratory:: Bilateral: Coarse
Lung Excursion:: Normal
Abdomen:: Nontender and Soft
Bowel Sounds:: Normal
Extremity Edema:: None: Bilateral:
Shell Catheter: Yes
[2025-02-18 12:27] LABS: Hematocrit 24.8 % (37.0-47.0); Hemoglobin 8.2 g/dL (12.0-16.0)
[2025-02-18 12:30] LABS: Glucose - Point of Care 193 mg/dl (70-99)
[2025-02-18] MEDS: NOVOLOG FLEXPEN-MODERATE RESISTANCE 1 UNITS SC (12:47)
[2025-02-18 12:53] LABS: Troponin I 4.160 ng/ml
--- NOTE | 2025-02-18 14:44 | W.PN.HOSP.TC ---
Today's Communication/Plan
-
Discharge home today and follow-up with cardiology/nephrology as outpatient
Assessment / Plan
Assessment / Plan
Impression:
HPI: 74-year-old with past medical history for type 2 diabetes, hypertension, hyperlipidemia, CKD presented to us with syncopal episode at home. Patient took shower. As she was getting dressed in the bathroom, she felt nauseous and remember
anything afterwards. Daughter heard the fall. She found mother on the floor. She was passed out for 5 to 10 seconds. Patient denied any prior headache dizzy. Fever chills cough congestion. Patient denied any chest pain or short of breath.
Patient denied any abdominal pain, nausea, vomiting or diarrhea. Patient denied dysuria hematuria.
02/15
Developed bradycardia and hypotension, loss of consciousness, briefly coded and received 1 mg of epinephrine and short run of CPR, patient was fully awake afterward, patient was taken urgently for cardiac cath where she had 100% occlusion of
proximal RCA, also patient intubated on cardiac cath.
Later patient extubated, bradycardia improved and blood pressure continued to improve.
Adjusted blood pressure medications with help of cardiology/nephrology.
Blood pressure improved and patient will be discharged home
Assessment/plan.
Non-STEMI/STEMI
Elevated troponin, status post urgent cardiac cath with 100% occlusion of proximal RCA
Aspirin/Brilinta/Crestor
Cardiac arrest/PEA /bradycardia
Patient briefly coded and ROSC achieved quickly.
Fully awake after good.
Underwent urgent cardiac cath
Continue aspirin/Brilinta/Crestor
Acute hypoxic respiratory failure
Patient intubated after cardiac cath but extubated later in the ICU
Weaned to 2 L nasal cannula
Currently on room
Hypertensive emergency.
Blood pressure improved.
Bradycardia improved.
Blood pressure very labile.
Cardiology adjusted blood pressure regimen.
Carvedilol 6.25 twice daily and nifedipine 30 mg once daily
# Syncope likely secondary to bradycardia event caused by inferior CO
Head CT negative- (repeat CT pending after current event)
Elevated D-dimer concerning for PE
Unable to get chest CT PE due to ANGELY
Lower extremity Dopplers negative for DVT
V/Q scan low risk
ANGELY on CKD
Creatinine 2.1, baseline 0.8, in 2009
Nephrology following, who suspects that this is patient's baseline
Follow-up with nephrology as outpatient
Anemia
Hemoglobin dropped to 7.7.
Repeat 8.6 without transfusion.
Continue to monitor
Hyperkalemia
Resolved, s/p lokelma
#Uncontrolled Type 2 diabetes with hyperglycemia
Hemoglobin A1c 9.0
Patient is on glargine 30 units every afternoon at night
She is currently receiving Lantus 15 units at bedtime while in the hospital
Start NovoLog 4 units AC 3 times daily
Hold metformin secondary to ANGELY
#Chronic transaminitis
#Hepatic steatosis
- AST 62, ALT 49
- mild
# Hyperlipidemia
Crestor increased
CODE STATUS: Full code
Family communication: Discussed with family at bedside
Disposition: Discharge home today and follow-up with cardiology/nephrology as outpatient
Total time spent on today's encounter was 55 minutes which included time spent in counseling the patient/family regarding diagnosis and treatment plan as listed above, goals of care, and symptom management. Case was discussed with nursing staff,
specialists, and care coordinators/case management. All labs and imaging personally reviewed by me. Remainder the time spent in detailed review of previous records, lab data, imaging, and other medical provider documentation.
Anticipated Discharge: Today
Subjective/Interval History
-
Date of Service: February 18, 2025
Patient seen and examined at bedside, denies any chest pain or shortness of breath, no abdominal pain, no nausea, no vomiting, no diarrhea or constipation.
Objective Data
-
Labs:
Laboratory Results
02/18/25 02/18/25
04:28 12:05
WBC 8.1
Hgb 7.5 L 8.2 L
Hct 23.0 L 24.8 L
Plt Count 166
Sodium 137
Potassium 4.3
Chloride 109 H
Carbon Dioxide 23
BUN 40 H
Creatinine 2.6 H
Glucose 94
Calcium 8.1 L
Total Bilirubin 0.6
AST 32
ALT 39 H
Alkaline Phosphatase 72
Vital Signs:
Vital Signs
Temp Pulse Resp BP Pulse Ox
97.5 F 63 16 134/56 99
02/18/25 11:52 02/18/25 14:00 02/18/25 11:52 02/18/25 11:55 02/18/25 11:55
I&O
02/17/25 02/18/25 02/19/25
06:59 06:59 06:59
Intake Total 299.9 / 299.9 1040 / 1040
Output Total 895 / 895 1500 / 1500
Balance -595.1 / -595.1 -460 / -460
Physical Exam
-
General: Well Developed, Well Nourished, No Apparent Distress and Comfortable
HEENT: Normocephalic, Atraumatic, Moist Mucous Membranes, No Ptosis, PERRLA and Nose Appears Normal
Respiratory: Clear to Auscultation and Non Labored Respirations
Cardiac: Regular Rhythm and S1/S2
Breast: Deferred by me
GI: Soft, Nontender, Nondistended and Normal Bowel Sounds
Genito-urinary: No Costovertebral Tender
Musculoskeletal: No Clubbing, No Cyanosis and No Edema
Skin: Warm
Neuro: Awake, Alert, Oriented, AO x 3 and No Motor Deficits
Psych: Calm
--- NOTE | 2025-02-18 14:46 | W.DCSUMMARY ---
Discharge Summary
Discharge Data
Date of Admission: 02/13/25
Date of Discharge: 02/18/25
Total time spent discharging patient (in min): 40
-
Pending Results: No
Hospital Course
Hospital course
HPI: 74-year-old with past medical history for type 2 diabetes, hypertension, hyperlipidemia, CKD presented to us with syncopal episode at home. Patient took shower. As she was getting dressed in the bathroom, she felt nauseous and remember
anything afterwards. Daughter heard the fall. She found mother on the floor. She was passed out for 5 to 10 seconds. Patient denied any prior headache dizzy. Fever chills cough congestion. Patient denied any chest pain or short of breath.
Patient denied any abdominal pain, nausea, vomiting or diarrhea. Patient denied dysuria hematuria.
02/15
Developed bradycardia and hypotension, loss of consciousness, briefly coded and received 1 mg of epinephrine and short run of CPR, patient was fully awake afterward, patient was taken urgently for cardiac cath where she had 100% occlusion of
proximal RCA, also patient intubated on cardiac cath.
Later patient extubated, bradycardia improved and blood pressure continued to improve.
Adjusted blood pressure medications with help of cardiology/nephrology.
Blood pressure improved and patient will be discharged home
During hospitalization patient was treated from the following
Non-STEMI/STEMI
Elevated troponin, status post urgent cardiac cath with 100% occlusion of proximal RCA
Aspirin/Brilinta/Crestor
Cardiac arrest/PEA /bradycardia
Patient briefly coded and ROSC achieved quickly.
Fully awake after good.
Underwent urgent cardiac cath
Continue aspirin/Brilinta/Crestor
Acute hypoxic respiratory failure
Patient intubated after cardiac cath but extubated later in the ICU
Weaned to 2 L nasal cannula
Currently on room
Hypertensive emergency.
Blood pressure improved.
Bradycardia improved.
Blood pressure very labile.
Cardiology adjusted blood pressure regimen.
Carvedilol 6.25 twice daily and nifedipine 30 mg once daily
# Syncope likely secondary to bradycardia event caused by inferior MD
Head CT negative- (repeat CT pending after current event)
Elevated D-dimer concerning for PE
Unable to get chest CT PE due to ANGELY
Lower extremity Dopplers negative for DVT
V/Q scan low risk
ANGELY on CKD
Creatinine 2.1, baseline 0.8, in 2009
Nephrology following, who suspects that this is patient's baseline
Follow-up with nephrology as outpatient
Anemia
Hemoglobin dropped to 7.7.
Repeat 8.6 without transfusion.
Continue to monitor
Hyperkalemia
Resolved, s/p lokelma
#Uncontrolled Type 2 diabetes with hyperglycemia
Hemoglobin A1c 9.0
Patient is on glargine 30 units every afternoon at night
She is currently receiving Lantus 15 units at bedtime while in the hospital
Start NovoLog 4 units AC 3 times daily
Hold metformin secondary to ANGELY
#Chronic transaminitis
#Hepatic steatosis
- AST 62, ALT 49
- mild
# Hyperlipidemia
Crestor increased
CODE STATUS: Full code
Family communication: Discussed with family at bedside
Disposition: Discharge home today and follow-up with cardiology/nephrology as outpatient
Total time spent on today's encounter was 40 minutes which included time spent in counseling the patient/family regarding diagnosis and treatment plan as listed above, goals of care, and symptom management. Case was discussed with nursing staff,
specialists, and care coordinators/case management. All labs and imaging personally reviewed by me. Remainder the time spent in detailed review of previous records, lab data, imaging, and other medical provider documentation.
Anticipated Discharge: Today
Discharge Plan
-
Patient Disposition: Home with Home Care
Discharge Diagnosis/Procedures: Syncope likely secondary to bradycardia event caused by inferior MD
Non-STEMI/STEMI
Cardiac arrest/PEA /
bradycardia
Hypertensive emergency.
ANGELY on CKD
Anemia
#Uncontrolled Type 2 diabetes with hyperglycemia
Condition: Good
Diet: Low Cholesterol, Low Sodium and Diabetic, Carb Controlled
Activity: With assistance and As tolerated
Other Services: PT and OT
Referrals:
[facility] [Outside]
Referral Note: Cardiac Rehab Orientation and First Exercise appointment is on 03/17 at 1:00.
The Cardiac Rehab gym is located on the first floor of the [facility].
[facility] [Outside]
Jamal Ambriz DO [Active, Nephrology] - in two to three weeks
Jeffery Bobby MD [Active, Cardiology] - in one to two weeks
Bernadette Yancey DO [Family Provider, Family Practice]
Prescriptions:
New
ticagrelor [Brilinta] 90 mg Tablet
90 mg PO BID Qty: 60 0RF
rosuvastatin 20 mg Tablet
40 mg PO QPM Qty: 30 0RF
dapagliflozin propanediol 10 mg Tablet
10 mg PO DAILY Qty: 30 0RF
aspirin 81 mg Tablet,Chewable
81 mg PO DAILY Qty: 30 0RF
nifedipine 30 mg Tablet Extended Release
30 mg PO DAILY Qty: 30 0RF
Rx Instructions:
@ 2 pm
ezetimibe 10 mg Tablet
10 mg PO DAILY Qty: 30 0RF
(DME) CBC
See Rx Instructions .Route .MEDSUPPLY Qty: 1 0RF
Rx Instructions:
to be done after one week, Fax result to PCP
(DME) Basal metabolic panel
See Rx Instructions .Route .MEDSUPPLY Qty: 1 0RF
Rx Instructions:
to be done after one week, Fax result to PCP
Continued
carvedilol [Coreg] 12.5 mg Tablet
12.5 mg PO BID
rosuvastatin 20 mg Tablet
20 mg PO DAILY
Changed
insulin glargine [Lantus Solostar U-100 Insulin] 100 unit/mL (3 mL) Insulin Pen
15 unit SC QPM Qty: 0 0RF
Discontinued
metformin 1,000 mg Tablet
1,000 mg PO BID
lisinopril 5 mg Tablet
5 mg PO DAILY
Discharge Orders:
Discharge Patient (As Directed); Ordered 02/18/25
Ordered By: Alan Lopez
Care Plan Goals
Care Plan Goals:
Problem: Readiness for enhanced knowledge related to diagnosis and treatment plan
Goal: Understand your diagnosis and treatment plan needs, including medications if applicable.
Instructions: Know your diagnosis, underlying causes and treatment plan options, including medications if applicable. Consult with your health care team to learn about your diagnosis and treatment plan, including medications if applicable.
Discharge Date and Time
Print Language: KAZAKH
== END 2025-02-18 16:11 | disposition home health service (06) | DRG 321 ==
LOC: IVU 00:13
PROVIDERS: Family Medicine; Internal Medicine Cardiovascular Disease; Registered Nurse; Student in an Organized Health Care Education/Training Program; ADMITTING PHYSICIAN Internal Medicine; ATTENDING PHYSICIAN General Practice; CONSULT PHYSICIAN Internal Medicine; CONSULT PHYSICIAN Internal Medicine Cardiovascular Disease; CONSULT PHYSICIAN Specialist; EMERGENCY PHYSICIAN Emergency Medicine; FAMILY PHYSICIAN Family Medicine
PROC: 0BH17EZ Insertion of Endotracheal Airway into Trachea, Via Natural or Artificial Opening (ICD-10-PCS; 2025-02-15)
PROC: B2111ZZ Fluoroscopy of Multiple Coronary Arteries using Low Osmolar Contrast (ICD-10-PCS; 2025-02-15)
PROC: 4A023N8 Measurement of Cardiac Sampling and Pressure, Bilateral, Percutaneous Approach (ICD-10-PCS; 2025-02-15)
PROC: 5A1223Z Performance of Cardiac Pacing, Continuous (ICD-10-PCS; 2025-02-15)
PROC: 027034Z Dilation of Coronary Artery, One Artery with Drug-eluting Intraluminal Device, Percutaneous Approach (ICD-10-PCS; 2025-02-15)
PROC: 03HY32Z Insertion of Monitoring Device into Upper Artery, Percutaneous Approach (ICD-10-PCS; 2025-02-15)
PROC: 5A12012 Performance of Cardiac Output, Single, Manual (ICD-10-PCS; 2025-02-15)
DX: I21.19 ST elevation (STEMI) myocardial infarction involving other coronary artery of inferior wall (principal); I46.2 Cardiac arrest due to underlying cardiac condition; J96.01 Acute respiratory failure with hypoxia; I16.1 Hypertensive emergency; N17.9 Acute kidney failure, unspecified; E87.4 Mixed disorder of acid-base balance; R00.1 Bradycardia, unspecified; I95.9 Hypotension, unspecified; R79.89 Other specified abnormal findings of blood chemistry; E87.5 Hyperkalemia; E11.65 Type 2 diabetes mellitus with hyperglycemia; E78.00 Pure hypercholesterolemia, unspecified; I25.10 Atherosclerotic heart disease of native coronary artery without angina pectoris; D63.1 Anemia in chronic kidney disease; N18.9 Chronic kidney disease, unspecified; I12.9 Hypertensive chronic kidney disease with stage 1 through stage 4 chronic kidney disease, or unspecified chronic kidney disease; E11.22 Type 2 diabetes mellitus with diabetic chronic kidney disease; K76.0 Fatty (change of) liver, not elsewhere classified; M54.12 Radiculopathy, cervical region; M54.50 Low back pain, unspecified; E11.40 Type 2 diabetes mellitus with diabetic neuropathy, unspecified; I44.1 Atrioventricular block, second degree; I27.20 Pulmonary hypertension, unspecified; Z79.4 Long term (current) use of insulin
CPT/HCPCS: 36620; 70450; 71045; 76770; 78582; 80048; 80053; 80061; 81003; 81015; 82043; 82330; 82570; 82607; 82728; 82746; 82805; 82810; 82962; 83036; 83516; 83540; 83550; 83735; 83880; 84100; 84132; 84155; 84156; 84165; 84300; 84302; 84484; 85014; 85018; 85027; 85045; 85379; 85610; 85730; 86038; 86160; 86255; 87086; 92950; 93005; 93306; 93308; 93321; 93325; 93460; 93970; 93975; 94002; 96365; 96367; 97116; 97162; 97166; 97530; 97535; 99152; 99153; 99291; A9540; A9567; C1725; C1760; C1769; C1874; C1894; C9606; J2250; Q9967

== ENCOUNTER → 2025-03-18 08:27 | Outpatient (REF) | payer OTHER, SELFPAY | LOC: DHVS 08:27 | PROVIDERS: ATTENDING PHYSICIAN Internal Medicine Cardiovascular Disease; FAMILY PHYSICIAN Family Medicine | DX: R74.8 Abnormal levels of other serum enzymes (principal) | CPT/HCPCS: 76700 ==

== ENCOUNTER 2025-03-23 17:32 | Inpatient (IN) | payer OTHER, SELFPAY ==
[2025-03-23] VITALS (9 sets, daily range): BP systolic 127–183; BP diastolic 51–74; BMI 29.0; BMI 25.8
--- NOTE | 2025-03-23 15:51 | ED.GENMED ---
History of Present Illness
General
Chief Complaint: Abnormal Lab Value
Time Seen by Provider: 03/23/25 15:40
History of Present Illness
History of Present Illness:
Patient is a 74-year-old female with recent admission for cardiac arrest and MRI from RCA occlusion. She presents with elevated creatinine kinase levels. Notes diffuse bodyaches and muscle pains over the past 2 weeks. She had outpatient labs done
which showed a creatinine kinase of 12,000. She reports having normal urine output without changes appearance. Does note some lower extremity edema over the past few days bilaterally. Denies shortness of breath or chest pain. She was started on
statin after her [place] which has since been discontinued.
Past History
Past History
ED Past Medical History: HTN, Hypercholesterolemia and Other (Anemia)
Social History
Tobacco: Non-smoker
Alcohol: None
Drug: None
Living: with family
Phy Exam
Physical Exam
Physical Exam:
GENERAL APPEARANCE: NAD, well developed/ well nourished
EYES lids/conjunctiva normal
EARS/NOSE/THROAT Mucous membranes moist, uvula midline without oral pharyngeal erythema, exudate or swelling
HEAD/NECK normocephalic atraumatic, neck is supple.
RESPIRATORY respiratory effort normal, speaks in full sentences, no accessory muscle use. Lungs clear to auscultation without rhonchi, wheezes, rales
CARDIAC Regular rate and rhythm, no edema.
ABDOMINAL Soft, ND/NT.
MUSCLES/EXTREMITIES 1+ pitting edema to lower extremities. Symmetric. Compartments are soft
SKIN Warm, pink and dry. No rashes
NEUROLOGICAL Speech is clear and appropriate. Normal level of consciousness. 5/5 strength in all extremities.
PSYCH Normal mood and affect. Judgement/competence is appropriate
Course
Orders/Labs/Results
Orders:
Orders
03/23/25 15:47
Complete Blood Count/With Diff Urgent
Comprehensive Metabolic Panel Urgent
Creatine [Creatine Phosphokinase] Urgent
03/23/25 15:52
0.9% Sodium Chloride 1000 ml [Nss] 1,000 ml IV BOLUS
03/23/25 16:09
Urinalysis Reflex To Culture Urgent
Abnormal Lab Results
03/23/25
15:47
WBC 10.9 H 10^3/uL
(4.8-10.8)
RBC 3.33 L 10^6/uL
(4.20-5.40)
Hgb 9.3 L g/dL
(12.0-16.0)
Hct 28.1 L %
(37.0-47.0)
Abs Immat Gran (auto) 0.1 H 10^3/uL
(0-0.05)
Absolute Neuts (auto) 7.6 H 10^3/uL
(1.4-6.5)
Absolute Monos (auto) 0.7 H 10^3/uL
(0.1-0.6)
Immature Gran % 1.1 H %
(0-0.5)
Lymphocytes % 19.7 L %
(20.5-51.1)
Potassium 5.2 H mmol/L
(3.5-5.1)
Carbon Dioxide 21 L mmol/L
(22-30)
BUN 59 H mg/dl
(7-17)
Creatinine 2.2 H mg/dL
(0.6-1.0)
Glucose 127 H mg/dl
(70-99)
AST 252 H U/L
(14-36)
ALT 283 H U/L
(0-35)
Creatine Kinase 85136 H U/L
(30-135)
03/23/25 15:47
03/23/25 15:47
Vital Signs
Initial and Last Documented VS:
Initial Vital Signs
Temp Pulse Resp BP Pulse Ox
98.2 F 62 18 174/74 99
03/23/25 13:04 03/23/25 13:04 03/23/25 13:04 03/23/25 13:04 03/23/25 13:04
Last Documented Vital Signs
Temp Pulse Resp BP Pulse Ox
98.2 F 58 14 172/63 99
03/23/25 13:04 03/23/25 16:00 03/23/25 16:00 03/23/25 16:00 03/23/25 16:00
*Pulse Oximetry
SaO2: 99
Oxygen Mode of Delivery: Room air
Patient hypoxic: no
*Critical Care Note
Total Time (30-74mins, 75-104mins- exclusive of procedures): Not Applicable
ED Attending Note
ED Attending Note
ED Attending Note:
Patient with rhabdomyolysis in the setting of statin use. This is discontinued. She is on IV fluids. Renal function is at his baseline. Cardiology consulted on doing a left heart catheterization in the next few days. Will admit patient to the
medicine service.
-
Portions of this chart may have been created with voice recognition software.� Occasional wrong word or��sound alike� substitutions may have occurred due to the inherent limitations of voice recognition software.
Discharge Plan
Departure
Patient Disposition: Admit
Date of Disposition: 03/23/25
Time of Disposition: 16:37
Presentation/result/management discussed w/ accepting MD/DO: Hospitalist
Discharge Problem:
Non-traumatic rhabdomyolysis
Prescriptions:
No Action
carvedilol [Coreg] 12.5 mg Tablet
12.5 mg PO BID
dapagliflozin propanediol 10 mg Tablet
10 mg PO DAILY Qty: 30 0RF
aspirin 81 mg Tablet,Chewable
81 mg PO DAILY Qty: 30 0RF
nifedipine 30 mg Tablet Extended Release
30 mg PO DAILY Qty: 30 0RF
Rx Instructions:
@ 2 pm
insulin glargine [Lantus Solostar U-100 Insulin] 100 unit/mL (3 mL) Insulin Pen
15 unit SC QPM Qty: 0 0RF
(DME) CBC
See Rx Instructions .Route .MEDSUPPLY Qty: 1 0RF
Rx Instructions:
to be done after one week, Fax result to PCP
(DME) Basal metabolic panel
See Rx Instructions .Route .MEDSUPPLY Qty: 1 0RF
Rx Instructions:
to be done after one week, Fax result to PCP
ticagrelor [Brilinta] 90 mg tablet
90 mg PO BID Qty: 60 0RF
(DME) walker Misc
See Rx Instructions .Route Qty: 1 0RF
Rx Instructions:
As directed
insulin aspart U-100 [Novolog FlexPen U-100 Insulin] 100 unit/mL (3 mL) Insulin Pen
1 unit SC .BEFORE MEALS PRN (Reason: diabetes)
Rx Instructions:
sliding scale
Referrals:
Bernadette Yancey DO [Family Provider, Family Practice]
Interventions
Interventions:
*Risk Screen - Suicide Last Done: 03/23/25 15:47
*General Assessment Last Done: 03/23/25 15:47
*Neglect/Abuse Screening Last Done: 03/23/25 15:47
*ED COVID-19 Vaccine History Last Done: 03/23/25 15:47
*ED Influenza Vaccine History Last Done: 03/23/25 15:47
Discharge Date and Time
Print Language: GREENLANDIC
[2025-03-23] MEDS: NSS 1000 IV ×2 (15:54→20:46)
[2025-03-23 16:04] LABS: Hematocrit 28.1 % (37.0-47.0); Hemoglobin 9.3 g/dL (12.0-16.0); Mean Corp Hgb Conc. 33.1 g/dL (33.0-37.0); Mean Corpuscular Volume 84.4 fL (81.0-99.0); Nucleated Red Blood Cells % 0 %; Platelet Count 322 10^3/uL (130-400); Red Cell Dist. Width 14.4 % (11.5-14.5)
[2025-03-23 16:18] LABS: ALT (SGPT) 283 U/L (0-35); AST (SGOT) 252 U/L (14-36); Albumin 3.5 g/dl (3.5-5.0); Alkaline Phosphatase 99 U/L (38-126); Blood Urea Nitrogen 59 mg/dl (7-17); Calcium 8.7 mg/dl (8.4-10.2); Carbon Dioxide 21 mmol/L (22-30); Chloride 107 mmol/L (98-107); Glucose 127 mg/dl (70-99); Potassium 5.2 mmol/L (3.5-5.1); Sodium 135 mmol/L (135-145); Total Protein 6.8 g/dl (6.3-8.2); eGFR 22.95
--- NOTE | 2025-03-23 17:35 | EDCM ---
CM reviewed chart and met with pt and daughter bedside in ED. Lives with her daughter in split level home, [address], has bathroom on main level.
Independent in ADLs, personal care and ambulation at baseline. Uses cane when she leaves the home, holds on to owens and furniture at home.
Confirms prescription coverage.
Hx [facility] after recent admission, no hx SNF
PCP: Bernadette Yancey
Pharmacy: [facility]
CM will continue to follow for any discharge planning needs.
--- NOTE | 2025-03-23 17:41 | HPS.HSE ---
Addendum entered and electronically signed by Kedar Caldwell MD 03/23/25 20:45:
This is an addendum to H&P written by Maxine Lopez on 03/23/2025. �Patient seen and examined independently with resident.
74-year-old female past medical history of type 2 diabetes, hypertension, hyperlipidemia, CKD3, CAD, cardiac arrest/PEA, chronic anemia, hepatic steatosis, chronic lower back pain, diabetic neuropathy, presenting with bodyaches and muscle aches
bilaterally predominantly right arm and right thigh 2 weeks after recent discharge.
She saw aircraft maintenance engineer on 03/12 and statin was stopped at that time. �Creatinine kinase was 13,000 at that time. �She saw GI due to transaminitis and was told to come to the emergency room for rhabdomyolysis
Patient was recently admitted from 02/13 to 02/18 for cardiac arrest and underwent cardiac catheterization which showed 100% occlusion of proximal RCA status post PCI. �She was started on high intensity simvastatin at that time. �She is scheduled for
PCI of LAD on 03/25.
Vital signs showed blood pressure 170s to 180s systolic.
Labs show creatinine of 2.2 which is at baseline. �Potassium 5.2. �Transaminitis in 200s. �Creatinine kinase of 11,000. �Leukocytosis of 10.9. �Stable anemia 9.3.
Patient with statin induced rhabdomyolysis. �Continue IV fluids. �Hold statin. �Cardiology consulted and she has catheterization planned in 2 days. �Blood pressure elevated at 180s systolic and might worsen with IV fluids or as needed hydralazine as
needed.
Original Note:
Family Physician
-
Family Physician: Bernadette Yancey, DO
Chief Complaint
-
Muscle aches and pains.
History of Present Illness
74-year-old female with PMHx significant for type 2 diabetes, hypertension, hyperlipidemia, CKD stage III, chronic low back pain, diabetic neuropathy, bilateral carpal tunnel syndrome, fatty liver, cervical radiculopathy, CAD s/p PCI - 02/15/2025,
brief cardiac arrest during the same hospital visit, new baseline serum creatinine-2.1-2.2 presents to the ER for evaluation of bodyaches and muscle aches. Following her discharge on 03/11, she was put on high intensity statin, Crestor and Zetia
together, 2 weeks into taking statin she started developing muscle aches and bodyaches. Her muscle aches were predominantly in the right proximal muscle groups-involving right arm and right hip into the thigh more than the left proximal muscle
groups. Her pain was initially 10/10, she saw cardiology and outpatient follow-up on 03/12 who advised her to stop statin and patient was given repeat blood work for 03/16/2025. Patient discontinued taking statin, and her repeat blood work on 03/16
showed elevated serum creatinine at 2.6, elevated CPK, and she was seen by GI subsequently on 03/16 for evaluation of elevated transaminitis who ordered a repeat creatinine kinase renal workup. Yesterday her results showed CK of 13,000, and GI
advised her to go to the emergency room.
Patient states that her current muscle aches are about 7/10 in intensity while they were 10/10 about a week and half ago. She discontinued statins a week ago. Notably patient is also on calcium channel elvie.
She denies having dark urine, hematuria, abdominal pain, fevers, chills, nausea, emesis, constipation or diarrhea or blood in the stool, dark tarry stools. She also denies having chest pain, heart racing, orthopnea, PND, syncope or near syncopal
episodes since her discharge.
Her pedal edema started yesterday.
Medical History
Past Medical History
Past Medical History: Reports Other (Type 2 diabetes, hypertension, hyperlipidemia, CKD, chronic low back pain, diabetic neuropathy, bilateral carpal tunnel syndrome, fatty liver, cervical radiculopathy, CAD s/p PCI - 02/15/2025, cardiac arrest x 2,
baseline serum creatinine-2.1-2.2, transaminitis)
Past Surgical History: Reports Other (ANALYSIS ENGINEER to RCA-02/15/2025.)
Social History
Tobacco: Non-smoker
Alcohol: None
Drug: None
Personal:
Living: With Family
Employment: Retired
Family History
Family History: Not pertinent
Allergies / Home Medications
Allergies reflects when Allergies were last updated in [employer].
Home Medications with original date entered in [employer]
Allergy/Medication List:
Allergies
Allergy/AdvReac Type Severity Reaction Status Date / Time
No Known Allergies Allergy Verified 03/23/25 13:04
Home Medications
carvedilol 12.5 mg tablet (Coreg) 12.5 mg PO BID Blood Pressure 02/12/25
Basal metabolic panel #1 ea 02/18/25
Brilinta 90 mg tablet (ticagrelor) 90 mg PO BID #60 tabs 02/18/25
CBC #1 ea 02/18/25
aspirin 81 mg chewable tablet 81 mg PO DAILY #30 tabs 02/18/25
dapagliflozin propanediol 10 mg tablet 10 mg PO DAILY #30 tabs 02/18/25
insulin glargine 100 unit/mL (3 mL) subcutaneous pen (Lantus Solostar U-100 Insulin) 15 unit (0.15 mL) SC QPM Diabetes #0 mL 02/18/25
nifedipine 30 mg tablet,extended release 30 mg PO DAILY #30 tabs 02/18/25
walker #1 ea 02/18/25
insulin aspart U-100 100 unit/mL (3 mL) subcutaneous pen (Novolog FlexPen U-100 Insulin aspart) 1 unit SC .BEFORE MEALS PRN diabetes 03/19/25
Review of Systems
-
Constitutional: Reports Fatigue
EENT: Reports No Symptoms
Respiratory: Reports No Symptoms
Cardiac: Reports No Symptoms
Abdomen/GI: Reports No Symptoms
: Reports No Symptoms
Musculoskeletal: Reports Muscle Pain, Muscle Stiffness and Other (dull aches)
Skin: Reports No Symptoms
Neurological: Reports Weakness (Right greater than left)
Endocrine: Reports No Symptoms
Hematologic/Lymphatic: Reports No Symptoms
Psych: Reports No Symptoms
Physical Exam
Vital Signs
Vital Signs
Temp Pulse Resp BP Pulse Ox
98.2 F 67 17 183/65 100
03/23/25 13:04 03/23/25 17:30 03/23/25 17:30 03/23/25 17:00 03/23/25 17:30
Physical Exam
General: No Apparent Distress and Comfortable
HEENT: Anicteric, Moist mucous membranes and PERRLA
Respiratory: Clear; No Wheezes, Rales, Rhonchi or Crackles
Cardiac: S1/S2, Regular Rhythm and Murmur (Systolic 2/6 murmur best heard in aortic area)
GI: Soft, Non Tender, Non Distended and Normal Bowel Sounds
Musculoskeletal: Edema, Left Lower Extremity (2+ pitting edema, around ankles.) and Edema, Right Lower Extremity (2+ pitting edema, around ankles.)
Neuro: AO x 3 and No Motor Deficits
Psych: Calm
Laboratory Results
-
03/23/25 15:47
03/23/25 15:47
Laboratory Results
Total Bilirubin 0.4 mg/dl (0.2-1.3) 03/23/25 15:47
AST 252 U/L (14-36) H 03/23/25 15:47
ALT 283 U/L (0-35) H 03/23/25 15:47
Alkaline Phosphatase 99 U/L (38-126) 03/23/25 15:47
Data Reviewed
-
Lab Data: Labs Reviewed by me, Discussed with Physician, Discussed with Patient and Discussed with Family
Impression/Plan
-
IMPRESSION:
74-year-old female with PMHx significant for type 2 diabetes, hypertension, hyperlipidemia, CKD stage III, chronic low back pain, diabetic neuropathy, bilateral carpal tunnel syndrome, fatty liver, cervical radiculopathy, CAD s/p PCI - 02/15/2025,
brief cardiac arrest during the same hospital visit, new baseline serum creatinine-2.1-2.2 presents for evaluation of muscle aches and pains. She was diagnosed to be in acute rhabdomyolysis secondary to statin intolerance.
PLAN:
# Acute rhabdomyolysis-
Predominant proximal muscle group ache, creatinine kinase peaked at 13,000 (outpatient) on 03/22/2025.
Creatinine kinase today upon admission-[id number]
Secondary to statin use.
Patient on statin and calcium channel elvie (CYP 3 A4) statin discontinued about 10 days ago.
Continue holding statin, IV fluids @ 150 cc
Trend CK, and potassium.
Leukocytosis is probably reactive secondary to acute rhabdo.
# Hyperkalemia-
Serum potassium at 5.3, EKG ordered.
If stable EKG, monitor for improvement with IV fluids.
Trend potassium levels.
# ANGELY on CKD stage III/4
Likely secondary to rhabdomyolysis.
Continue IV hydration
Monitor weights, trend serum creatinine monitor for improvement.
# CAD s/p recent ANALYSIS ENGINEER-
Continue aspirin and Brilinta.
Scheduled for PCI on 03/25, cardiology consulted, cardiology on board.
Appreciate inputs.
# Uncontrolled essential hypertension-
On carvedilol and nifedipine.
Add hydralazine as needed.
Continue home medication regimen, consider switching to ANDREW/ARB.
# IDDM-
On Lantus and aspart.
On dapagliflozin for urine proteinuria.
Continue home Lantus dose, add low resistance sliding scale
Continue dapagliflozin
Accu-Cheks, obtain HbA1c in the AM.
# Hyperlipidemia-
Hold statin.
# Transaminitis-
Monitor
# DVT prophylaxis-
Heparin subcu
# Diet-diabetic and cholesterol-lowering
# CODE STATUS-full code.
[2025-03-23 18:39] LABS: Urine Character Clear (Clear)
[2025-03-23 18:50] LABS: Urine Squamous Cell 0-2 /LPF (Few)
[2025-03-23 18:51] LABS: Urine Red Blood Cell 0-2 /HPF (0-2)
--- NOTE | 2025-03-23 20:11 | PTCARENOTE ---
Ptreceived from ED to 436-1. Pt oriented to room and call burton.
[2025-03-23 20:27] LABS: Glucose - Point of Care 85 mg/dl (70-99)
[2025-03-23] MEDS: PROCARDIA XL (EXTENDED RELEASE) 30 MG PO (20:35)
[2025-03-23] MEDS: BRILINTA 90 MG PO (20:36)
[2025-03-23] MEDS: COREG 12.5 MG PO (20:36)
[2025-03-23] MEDS: SODIUM BICARBONATE 1300 MG PO (21:19)
[2025-03-23 22:05] LABS: Glucose - Point of Care 181 mg/dl (70-99)
[2025-03-24 03:08] LABS: Glucose - Point of Care 178 mg/dl (70-99)
[2025-03-24 03:28] VITALS: BP 156/62
[2025-03-24] MEDS: NSS 1000 IV ×4 (03:35→23:03)
[2025-03-24 06:00] VITALS: BMI 26.6
[2025-03-24 07:30] VITALS: BP 172/69
[2025-03-24 08:27] LABS: Hematocrit 25.4 % (37.0-47.0); Hemoglobin 8.5 g/dL (12.0-16.0); Mean Corp Hgb Conc. 33.5 g/dL (33.0-37.0); Mean Corpuscular Volume 86.1 fL (81.0-99.0); Platelet Count 290 10^3/uL (130-400); Red Cell Dist. Width 14.3 % (11.5-14.5)
--- NOTE | 2025-03-24 08:30 | VNURNOTE ---
Addendum entered by Callie Sandy RN 03/24/25 13:50:
[facility] Resumption referral placed in [facility].
Original Note:
Chart reviewed. Patient is current with [facility]. Will continue to follow hospital course and DC plans.
[2025-03-24 08:31] LABS: Glucose - Point of Care 110 mg/dl (70-99)
[2025-03-24 08:36] LABS: INR 1.17; PT 15.5 Sec (11.4-14.6)
--- NOTE | 2025-03-24 08:48 | CON.CAR ---
Addendum entered and electronically signed by Derek Up MD 03/24/25 11:02:
I saw and evaluated the patient, and I provided the substantive portion of the medical decision making.
I reviewed and agree with the note by Virginia Anaya and it accurately reflects our care.
I personally performed the medical decision making of the this encounter and my assessment and plan is below:
74-year-old female with history of hypertension, dyslipidemia, diabetes and recent hospitalization for syncope with hypertensive emergency and missed infarct that then developed into inferior ST elevations and PEA arrest. She underwent cardiac
catheterization with a PCI to the acutely occluded RCA and plans to return tomorrow for staged intervention of her left circumflex. However, in the outpatient setting, she developed intense body aches and statin was stopped. Labs revealed findings
consistent with rhabdomyolysis. Overall, she is feeling improved. Her daughter Abbie is an ER physician and is at the bedside adding to the history. On exam she has a regular rate and rhythm with a normal S1-S2, lungs are clear to auscultation,
extremities are warm and well-perfused. Labs show a improvement in her creatinine today to 1.9 which is better than its been in the last checks all year. CK is dropping and is now 8084 LFTs are still elevated.
Assessment:
Rhabdomyolysis, statin induced, improving, continue care per medicine
CAD status post recent PCI to RCA with plan for intervention to the left circumflex tomorrow. Discussed with interventional cardiology. Will retimed to hopefully for Saturday to allow more recovery from her rhabdomyolysis. Would hate to give her
nephrotoxic contrast if still not adequately recovered from rhabdomyolysis. Meanwhile continue aspirin and Plavix, beta-elvie. Will transition to PCSK9 inhibitor as an outpatient.
Hypertension: Continue beta-elvie and calcium channel elvie. Titrate as needed.
Will follow.
Original Note:
Consultation
Consultation Request
Date/Time Consultation Requested: 03/23/252010
Date/Time Consultation Performed: 03/24/25 08
Requesting Provider: Dr. Lopez
Performing Provider: Virginia LAINEZ for Dr. Up
Reason for Consultation: CAD with plan for PCI, now with rhabdomyolysis
Medical History
-
Chief Complaint: abnormal lab values
History of Present Illness:
74-year-old female with hypertension, dyslipidemia, diabetes on insulin, anemia, and CKD who was admitted to the hospital recently with syncope and hypertensive emergency. Subsequently she developed inferior ST elevations with associated
bradycardia/hypotensive and brief PEA arrest prompting emergent cardiac catheterization and PCI of acutely occluded RCA. I saw her in office follow-up on 03/12/25 and she seemed to be doing well. Plan was in place for staged PCI 03/25/25 with
Manav to address the nonculprit left circumflex. However, following that visit she developed body aches and statin was stopped. OP labs revealed abnormal LFT's, which led to abdominal u/s (unremarkable), and GI consult. GI ordered CK, which was
significantly elevated at 13,664. She was recommend to come to the hospital. She is s/p 3L IVF. CK this AM pending. She denies any CP, SOB, palpitations, or dizziness. Her aches continue, but have improved. She is in no distress at the time of my
assessment. Daughter is at bedside, and is an ER physician.
Past Medical History
Past Medical History: CAD, HTN, Hypercholesterolemia, NIDDM (on insulin) and Renal Failure (CKD)
Social History
Tobacco: Non-Smoker
Family History
Family History: Reviewed & Not Pertinent
Allergies / Home Medications
Allergy/AdvReac Type Severity Reaction Status Date / Time
No Known Allergies Allergy Verified 03/23/25 13:04
�Medication �Instructions �Recorded �Confirmed �Type
carvedilol 12.5 mg tablet (Coreg) 12.5 mg PO BID Blood Pressure 02/12/25 03/23/25 History
Basal metabolic panel #1 ea 02/18/25 03/19/25 Rx
Brilinta 90 mg tablet (ticagrelor) 90 mg PO BID #60 tabs 02/18/25 03/23/25 Rx
CBC #1 ea 02/18/25 03/19/25 Rx
aspirin 81 mg chewable tablet 81 mg PO DAILY #30 tabs 02/18/25 03/23/25 Rx
dapagliflozin propanediol 10 mg 10 mg PO DAILY #30 tabs 02/18/25 03/23/25 Rx
tablet
walker #1 ea 02/18/25 03/19/25 Rx
insulin aspart U-100 100 unit/mL SC PRN diabetes 03/19/25 03/19/25 History
(3 mL) subcutaneous pen (Novolog
FlexPen U-100 Insulin aspart)
insulin glargine 100 unit/mL (3 30 unit SC HS Diabetes 03/23/25 03/23/25 History
mL) subcutaneous pen (Lantus
Solostar U-100 Insulin)
nifedipine 30 mg tablet,extended 30 mg PO BID Blood Pressure 03/23/25 03/23/25 History
release 24 hr (Procardia XL)
sodium bicarbonate 650 mg tablet 1,300 mg PO BID Supplement 03/23/25 03/23/25 History
Review of Systems
-
History Source: Patient
All other systems: Negative unless noted
Constitutional: Other (muscle aches)
Physical Exam
Vital Signs
Temp Pulse Resp BP Pulse Ox
98.3 F 73 16 172/69 98
03/24/25 07:30 03/24/25 07:30 03/24/25 07:30 03/24/25 07:30 03/24/25 07:30
Lab Results
03/24/25 06:19
03/24/25 07:37
Physical Exam
General: Well Developed, Well Nourished and No Apparent Distress
HEENT: Normocephalic and Anicteric
Respiratory: Clear and Non Labored Respirations
Cardiac: Regular Rhythm
Skin: Warm and Dry
Neuro: AO x 3
Psych: Calm
Impression / Plan
-
Rhabdomyolysis:
-statin stopped, now s/p 3L IVF
-CK pending this AM
CAD:
-recent STEMI with RCA stenting. Plan was for PCI tomorrow to address circumflex disease.
-continue ASA and Brilinta. Statin stopped as noted. Continue coreg.
-will need to cancel the staged PCI for tomorrow. May be okay for Saturday. Will need to reassess in AM.
HTN:
-On coreg and nifedipine
-monitor
-had PRN hydralazine as OP per nephro
Dyslipidemia:
-LDL 218 during recent hospitalization, but with statin, patient with elevated LFT's, CPK- so statin and zetia now stopped. Consider PSCK9i in the future.
DM, type II:
-management per primary
-on SGLT2I and insulin
CKD:
-creatinine improved this AM s/p IVF
-monitor closely
Data:
Cardiac Cath 02/15/25: Coronary angiography demonstrated culprit 100% thrombotic occlusion in the proximal RCA and nonculprit obstructive disease in the OM 2 and mid left circumflex. She had successful PCI with drug-eluting stent x 1 to proximal RCA.
Echo 02/13/2025: Ejection fraction 55 to 60%, LV wall motion with basal inferoseptal segment and basal inferior segment hypokinesis.
Data Reviewed
-
EKG: Tracing Personally Visualized and interpreted (NSR 66 BPM, LVH)
Ultrasound: Report Reviewed by me (Abdomen ultrasound 03/18/25: No evidence of cholelithiasis, acute cholecystitis, or biliary ductal dilation. No sonographic abnormalities demonstrated within the liver.)
Medical Tests (Nuc Med, Echo etc): Report Reviewed by me (echo and cath as noted)
Labs: Labs Reviewed by me (AM CK pending)
[2025-03-24] MEDS: NOVOLOG FLEXPEN-LOW RESISTANCE SC (08:51)
[2025-03-24] MEDS: COREG 12.5 MG PO ×2 (08:52→19:52)
[2025-03-24] MEDS: PROCARDIA XL (EXTENDED RELEASE) 30 MG PO ×2 (08:52→19:52)
[2025-03-24] MEDS: BRILINTA 90 MG PO ×2 (08:52→19:51)
[2025-03-24] MEDS: SODIUM BICARBONATE 1300 MG PO ×2 (08:53→19:52)
[2025-03-24] MEDS: FARXIGA 10 MG PO (08:53)
[2025-03-24] MEDS: LOW STRENGTH ASPIRIN 81 MG PO (08:53)
[2025-03-24 09:17] LABS: ALT (SGPT) 282 U/L (0-35); AST (SGOT) 264 U/L (14-36); Albumin 2.9 g/dl (3.5-5.0); Alkaline Phosphatase 96 U/L (38-126); Blood Urea Nitrogen 50 mg/dl (7-17); Calcium 7.9 mg/dl (8.4-10.2); Carbon Dioxide 18 mmol/L (22-30); Chloride 116 mmol/L (98-107); Estimated Creatinine Clearance 23 ml/min; Glucose 120 mg/dl (70-99); Potassium 4.7 mmol/L (3.5-5.1); Sodium 140 mmol/L (135-145); Total Protein 5.8 g/dl (6.3-8.2); eGFR 27.37
[2025-03-24 10:53] LABS: Glycohemoglobin (HgbA1c) 9.2 % (4.0-5.6)
--- NOTE | 2025-03-24 10:58 | W.PN.HOSP.TC ---
Today's Communication/Plan
-
Continue with IV fluid
CK downtrending
Potassium stabilized
Monitor POC. A1c uncontrolled
Plan for tentative cardiac cath 03/26
Assessment / Plan
Assessment / Plan
IMPRESSION:
74-year-old female with PMHx significant for type 2 diabetes, hypertension, hyperlipidemia, CKD stage III, chronic low back pain, diabetic neuropathy, bilateral carpal tunnel syndrome, fatty liver, cervical radiculopathy, CAD s/p PCI - 02/15/2025,
brief cardiac arrest during the same hospital visit, new baseline serum creatinine-2.1-2.2 presents for evaluation of muscle aches and pains. She was diagnosed to be in acute rhabdomyolysis secondary to statin intolerance.
PLAN:
#Sub Acute rhabdomyolysis-
#Transaminitis likely secondary to rhabdomyolysis
Predominant proximal muscle group ache, creatinine kinase peaked at 13,000 (outpatient) on 03/22/2025.
Creatinine kinase down trended to 8084
Secondary to statin use.
Patient on statin and calcium channel elvie (CYP 3 A4) statin discontinued about 10 days ago.
Continue with IV fluids
Trend CK, and potassium.
Leukocytosis is probably reactive secondary to acute rhabdo.
Trend LFTs.
# Hyperkalemia-
Resolved.
# ANGELY on CKD stage III/4
Likely secondary to rhabdomyolysis.
Continue IV hydration
Monitor weights, trend serum creatinine monitor for improvement.
Creatinine improving.
Follows with outpatient nephrology
# CAD s/p recent LANG INTERPRETER-
Continue aspirin and Brilinta.
Plan to monitor patient creatinine for the next 24 hours.
Plan for tentative cardiac catheterization 03/26/2025
Cardiology following
# Uncontrolled essential hypertension-
On carvedilol and nifedipine.
Add hydralazine as needed.
# IDDM-
On Lantus and aspart.
On dapagliflozin for urine proteinuria.
Continue home Lantus dose, add low resistance sliding scale
Continue dapagliflozin
Accu-Cheks,
A1c 9.2
# Hyperlipidemia-
consider PSCK9i as outpatient
# Transaminitis-
Monitor
# DVT prophylaxis-
Heparin subcu
# CODE STATUS-full code.
Discussed with patient daughter ER physician at bedside in details
Discussed with cardiology
Anticipated Discharge: > 48 hours
Subjective/Interval History
-
Date of Service: March 24, 2025
Remains with diffuse lower extremity pain after being started on statin
Denies any chest pain
Objective Data
-
Labs:
Laboratory Results
03/24/25 03/24/25
06:19 07:37
WBC 8.3
Hgb 8.5 L
Hct 25.4 L
Plt Count 290
PT 15.5 H
INR 1.17
Sodium 140 Cancelled
Potassium 4.7 Cancelled
Chloride 116 H Cancelled
Carbon Dioxide 18 L Cancelled
BUN 50 H Cancelled
Creatinine 1.9 H Cancelled
Glucose 120 H Cancelled
Calcium 7.9 L Cancelled
Total Bilirubin 0.3 Cancelled
AST 264 H Cancelled
ALT 282 H Cancelled
Alkaline Phosphatase 96 Cancelled
Vital Signs:
Vital Signs
Temp Pulse Resp BP Pulse Ox
98.3 F 73 16 172/69 98
03/24/25 07:30 03/24/25 07:30 03/24/25 07:30 03/24/25 07:30 03/24/25 07:30
I&O
03/23/25 03/24/25 03/25/25
06:59 06:59 06:59
Intake Total 1500 / 1500
Balance 1500 / 1500
Physical Exam
-
General: Well Developed, Well Nourished, No Apparent Distress and Comfortable
HEENT: Normocephalic, Atraumatic, Moist Mucous Membranes, No Ptosis and Nose Appears Normal
Respiratory: Clear to Auscultation and Non Labored Respirations
Cardiac: Regular Rhythm and S1/S2
Breast: Deferred by me
GI: Soft, Nontender, Nondistended and Normal Bowel Sounds
Genito-urinary: No Costovertebral Tender
Musculoskeletal: No Clubbing, No Cyanosis and No Edema
Skin: Warm
Neuro: Awake, Alert, Oriented, AO x 3 and No Motor Deficits
Psych: Calm
Data Reviewed
-
Total Time Spent with Patient (in minutes): 56
[2025-03-24 11:30] VITALS: BP 147/57
[2025-03-24 12:33] LABS: Glucose - Point of Care 215 mg/dl (70-99)
[2025-03-24] MEDS: NOVOLOG FLEXPEN-LOW RESISTANCE 2 UNITS SC ×2 (13:31→17:11)
--- NOTE | 2025-03-24 13:48 | CM ---
Chart reviewed and plan is to home with daughter and [facility].
Plan; Home with daughter and [facility].
[2025-03-24 15:30] VITALS: BP 168/66
[2025-03-24 16:48] LABS: Glucose - Point of Care 231 mg/dl (70-99)
[2025-03-24 19:30] VITALS: BP 176/68
[2025-03-24 21:01] LABS: Glucose - Point of Care 289 mg/dl (70-99)
[2025-03-24] MEDS: LANTUS 0.15 UNITS SC (22:03)
[2025-03-24 23:41] VITALS: BP 138/60
[2025-03-25] VITALS (7 sets, daily range): BP systolic 114–188; BP diastolic 54–75; BMI 26.9
[2025-03-25 03:11] LABS: Glucose - Point of Care 172 mg/dl (70-99)
[2025-03-25] MEDS: NSS 1000 IV ×3 (05:32→23:43)
[2025-03-25 07:52] LABS: Glucose - Point of Care 132 mg/dl (70-99)
[2025-03-25] MEDS: NOVOLOG FLEXPEN-LOW RESISTANCE SC (07:58)
[2025-03-25] MEDS: PROCARDIA XL (EXTENDED RELEASE) 30 MG PO ×2 (08:07→21:27)
[2025-03-25] MEDS: SODIUM BICARBONATE 1300 MG PO ×2 (08:08→19:55)
[2025-03-25] MEDS: COREG 12.5 MG PO ×2 (08:08→21:28)
[2025-03-25] MEDS: LOW STRENGTH ASPIRIN 81 MG PO (08:08)
[2025-03-25] MEDS: BRILINTA 90 MG PO ×2 (08:08→19:55)
[2025-03-25] MEDS: FARXIGA 10 MG PO (08:08)
[2025-03-25 09:22] LABS: Hematocrit 26.6 % (37.0-47.0); Hemoglobin 8.6 g/dL (12.0-16.0); Mean Corp Hgb Conc. 32.3 g/dL (33.0-37.0); Mean Corpuscular Volume 88.7 fL (81.0-99.0); Nucleated Red Blood Cells % 0 %; Platelet Count 296 10^3/uL (130-400); Red Cell Dist. Width 14.6 % (11.5-14.5)
[2025-03-25 10:02] LABS: ALT (SGPT) 202 U/L (0-35); AST (SGOT) 139 U/L (14-36); Albumin 3.1 g/dl (3.5-5.0); Alkaline Phosphatase 90 U/L (38-126); Blood Urea Nitrogen 38 mg/dl (7-17); Calcium 8.3 mg/dl (8.4-10.2); Carbon Dioxide 20 mmol/L (22-30); Chloride 116 mmol/L (98-107); Estimated Creatinine Clearance 28 ml/min; Glucose 145 mg/dl (70-99); Potassium 4.5 mmol/L (3.5-5.1); Sodium 140 mmol/L (135-145); Total Protein 6.2 g/dl (6.3-8.2); eGFR 33.63
--- NOTE | 2025-03-25 11:04 | W.PN.HOSP.TC ---
Today's Communication/Plan
-
CK downtrending
Reduce IV fluid rate
LFTs improving
Creatinine improving
Reduce Lantus
N.p.o. past midnight for cath tomorrow
Assessment / Plan
Assessment / Plan
IMPRESSION:
74-year-old female with PMHx significant for type 2 diabetes, hypertension, hyperlipidemia, CKD stage III, chronic low back pain, diabetic neuropathy, bilateral carpal tunnel syndrome, fatty liver, cervical radiculopathy, CAD s/p PCI - 02/15/2025,
brief cardiac arrest during the same hospital visit, new baseline serum creatinine-2.1-2.2 presents for evaluation of muscle aches and pains. She was diagnosed to be in acute rhabdomyolysis secondary to statin intolerance.
PLAN:
#Sub Acute rhabdomyolysis-
#Transaminitis likely secondary to rhabdomyolysis
Predominant proximal muscle group ache, creatinine kinase peaked at 13,000 (outpatient) on 03/22/2025.
Creatinine kinase down trended to 8084
Secondary to statin use.
Patient on statin and calcium channel elvie (CYP 3 A4) statin discontinued about 10 days ago.
Continue with IV fluids. Decrease rate.
Trend CK, and potassium. CK significantly downtrended to 5358
Leukocytosis is probably reactive secondary to acute rhabdo.
Trend LFTs.
# Hyperkalemia-
Resolved.
# ANGELY on CKD stage III/4
#Metabolic acidosis
Likely secondary to rhabdomyolysis.
Continue IV hydration
Monitor weights, trend serum creatinine monitor for improvement.
Creatinine improving. Downtrending to 1.6.
Continue with home regimen of sodium bicarbonate
Follows with outpatient nephrology
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
Continue aspirin and Brilinta.
Creatinine has improved since admission.
Plan for tentative cardiac catheterization 03/26/2025
Cardiology following
# Essential hypertension-
On carvedilol and nifedipine.
Add hydralazine as needed.
# IDDM-
On dapagliflozin for urine proteinuria.
Reduce Lantus to 10 units nightly as patient to remain n.p.o. for procedure tomorrow
add low resistance sliding scale
Continue dapagliflozin
Accu-Cheks,
A1c 9.2
# Hyperlipidemia-
consider PSCK9i as outpatient
# Transaminitis-
Monitor
# DVT prophylaxis-
Heparin subcu. This was also discussed with patient in order to be compliant with heparin as risk of DVT.
# CODE STATUS-full code.
Discussed with patient daughter ER physician at bedside in details
Anticipated Discharge: > 48 hours
Subjective/Interval History
-
Date of Service: March 25, 2025
States remains with diffuse body pain
Objective Data
-
Labs:
Laboratory Results
03/25/25 03/25/25
08:55 08:56
WBC 8.7
Hgb 8.6 L
Hct 26.6 L
Plt Count 296
Sodium 140
Potassium 4.5
Chloride 116 H
Carbon Dioxide 20 L
BUN 38 H
Creatinine 1.6 H
Glucose 145 H
Calcium 8.3 L
Total Bilirubin 0.5
AST 139 H
ALT 202 H
Alkaline Phosphatase 90
Vital Signs:
Vital Signs
Temp Pulse Resp BP Pulse Ox
98.2 F 74 16 184/70 98
03/25/25 07:00 03/25/25 08:07 03/25/25 07:00 03/25/25 08:07 03/25/25 07:00
I&O
03/24/25 03/25/25 03/26/25
06:59 06:59 06:59
Intake Total 6060 / 6060
Balance 6060 / 6060
Physical Exam
-
General: Well Developed, Well Nourished, No Apparent Distress and Comfortable
HEENT: Normocephalic, Atraumatic and Moist Mucous Membranes
Respiratory: Clear to Auscultation and Non Labored Respirations
Cardiac: Regular Rhythm and S1/S2
Breast: Deferred by me
GI: Soft, Nontender, Nondistended and Normal Bowel Sounds
Genito-urinary: No Costovertebral Tender
Musculoskeletal: No Clubbing, No Cyanosis and No Edema
Skin: Warm
Neuro: Awake, Alert, Oriented, AO x 3 and No Motor Deficits
Psych: Calm
--- NOTE | 2025-03-25 11:33 | CM ---
manager neonatal met with patient and daughter at bedside, plan is to home with [facility].
Plan; Home with [facility].
[2025-03-25 11:41] LABS: Glucose - Point of Care 300 mg/dl (70-99)
[2025-03-25] MEDS: NOVOLOG FLEXPEN-LOW RESISTANCE 4 UNITS SC (13:49)
--- NOTE | 2025-03-25 15:03 | W.PN.CD ---
Today's Communication / Plan
-
PCI to LCx tomorrow
NPO after breakfast for afternoon case
Impression / Plan
-
Rhabdomyolysis:
-statin stopped, now s/p 3L IVF
-CK continues to improve
-statin should be added to allergy list
CAD:
-recent STEMI with RCA stenting. Plan for PCI tomorrow 03/26 to address LCx di. NPO after breakfast for afternoon case
-continue ASA and Brilinta. Statin stopped as noted. Continue coreg.
HTN:
-On coreg and nifedipine
-monitor
-had PRN hydralazine as OP per nephro
Dyslipidemia:
-LDL 218 during recent hospitalization, but with statin, patient with elevated LFT's, CPK- so statin and zetia now stopped. Consider PSCK9i in the future.
DM, type II:
-management per primary
-on SGLT2I and insulin
CKD, improving
-creatinine improved this AM s/p IVF, best it's ever been in recent history despite rhabdo
-monitor closely
Data:
Cardiac Cath 02/15/25: Coronary angiography demonstrated culprit 100% thrombotic occlusion in the proximal RCA and nonculprit obstructive disease in the OM 2 and mid left circumflex. She had successful PCI with drug-eluting stent x 1 to proximal RCA.
Echo 02/13/2025: Ejection fraction 55 to 60%, LV wall motion with basal inferoseptal segment and basal inferior segment hypokinesis.
Physical Exam
Vital Signs/Labs
Vital Signs
Temp Pulse Resp BP Pulse Ox
36.6 C 65 17 151/57 100
03/25/25 11:00 03/25/25 11:00 03/25/25 11:00 03/25/25 11:00 03/25/25 11:00
03/24/25 03/25/25 03/26/25
06:59 06:59 06:59
Actual Weight 65.856 kg 66.763 kg
03/25/25 08:56
03/25/25 08:55
PT 15.5 Sec (11.4-14.6) H 03/24/25 06:19
INR 1.17 03/24/25 06:19
Physical Exam
Constitutional: Comfortable
Cardiovascular: Rhythm & rate is regular
Respiratory: Respiratory effort normal
Neuro/Psych: AO x 3
Data Reviewed
-
Date of Service: March 25, 2025
Medical Decision Making: Reviewed Test Results
Labs: Labs Reviewed by me
[2025-03-25 16:41] LABS: Glucose - Point of Care 260 mg/dl (70-99)
[2025-03-25] MEDS: NOVOLOG FLEXPEN-LOW RESISTANCE 3 UNITS SC (17:57)
[2025-03-25 21:07] LABS: Glucose - Point of Care 297 mg/dl (70-99)
[2025-03-25] MEDS: LANTUS 0.1 UNITS SC (21:28)
[2025-03-26] VITALS (16 sets, daily range): BP systolic 143–183; BP diastolic 51–69; BMI 27.2
[2025-03-26 00:34] LABS: Glucose - Point of Care 221 mg/dl (70-99)
[2025-03-26 06:00] LABS: Glucose - Point of Care 116 mg/dl (70-99)
[2025-03-26 08:24] LABS: Hematocrit 26.7 % (37.0-47.0); Hemoglobin 8.7 g/dL (12.0-16.0); Mean Corp Hgb Conc. 32.6 g/dL (33.0-37.0); Mean Corpuscular Volume 88.4 fL (81.0-99.0); Nucleated Red Blood Cells % 0 %; Platelet Count 280 10^3/uL (130-400); Red Cell Dist. Width 14.8 % (11.5-14.5)
[2025-03-26] MEDS: LOW STRENGTH ASPIRIN 81 MG PO (08:37)
[2025-03-26] MEDS: COREG 12.5 MG PO ×2 (08:37→19:38)
[2025-03-26] MEDS: PROCARDIA XL (EXTENDED RELEASE) 30 MG PO ×2 (08:38→19:38)
[2025-03-26] MEDS: FARXIGA 10 MG PO (08:38)
[2025-03-26] MEDS: BRILINTA 90 MG PO ×2 (08:38→19:38)
[2025-03-26] MEDS: SODIUM BICARBONATE 1300 MG PO ×2 (08:38→19:38)
[2025-03-26] MEDS: NSS 1000 IV ×2 (08:45→17:01)
[2025-03-26 09:06] LABS: ALT (SGPT) 187 U/L (0-35); AST (SGOT) 127 U/L (14-36); Albumin 3.1 g/dl (3.5-5.0); Alkaline Phosphatase 84 U/L (38-126); Blood Urea Nitrogen 29 mg/dl (7-17); Calcium 8.5 mg/dl (8.4-10.2); Carbon Dioxide 22 mmol/L (22-30); Chloride 114 mmol/L (98-107); Estimated Creatinine Clearance 26 ml/min; Glucose 114 mg/dl (70-99); Potassium 4.4 mmol/L (3.5-5.1); Sodium 142 mmol/L (135-145); Total Protein 6.2 g/dl (6.3-8.2); eGFR 31.27
--- NOTE | 2025-03-26 10:43 | CM ---
Addendum entered by Pauline Blanco 03/26/25 10:44:
Home with [facility]
Original Note:
Plan home with [facility].
Plan; Home no needs.
[2025-03-26 11:53] LABS: Glucose - Point of Care 108 mg/dl (70-99)
--- NOTE | 2025-03-26 14:01 | W.PN.HOSP.TC ---
Today's Communication/Plan
-
Continue IV fluids, trend BMP and CK
Plan for left heart cath today with LCx PCI
Possible discharge tomorrow
Assessment / Plan
Assessment / Plan
#Statin induced rhabdomyolysis/myositis
#ANGELY on CKD stage III
#Chronic acidemia
-CKD likely associated with diabetic nephropathy, Home regimen includes sodium bicarb tabs
-Developed muscle aches and elevated CK following increase statin dosing for CAD
-Upon arrival CK level 13,000, down trended with IV fluids and discontinuation of statin
-Also developed an ANGELY secondary to myoglobinuria, has also improved with IV fluids
-As of this morning creatinine down to baseline at 1.6�1.7, CK 3658
-Continue maintenance IV fluids, trend BMP, LFTs, and CK level
#CAD s/p PCI
#Dyslipidemia
-Recent hospitalization for STEMI during which she was started on DAPT with aspirin and Brilinta
-Following stent placement was planned for elective cardiac catheterization and PCI of LCx
-No signs of systolic dysfunction, echocardiogram on recent hospital stay with preserved LVEF
-Cardiology following, planning for LHC with LCx stent later today
-Continue with home beta-elvie, DAPT, SGLT2i
-Does not tolerate statin, consider PCSK9i as OP
-Monitor on telemetry
-LDL goal <70
#Primary hypertension
-Home regimen includes carvedilol and nifedipine
-No known history of hypertensive systemic disease
-Blood pressure well-controlled, as needed hydralazine ordered
#IDDM C/B neuropathy
-Poorly controlled, most recent A1c 9.2%
-Home regimen includes Lantus 30 units nightly, ISS, SGLT2i
-Monitor Accu-Cheks here, glucose goal 140-180
-Should have endocrinology referral at discharge
#Cervical radiculopathy
#MASH
#H/O cardiac arrest/PEA arrest x 2
Diet: Diabetic, 1800 brianne
DVT prophylaxis: SQ heparin
CODE STATUS: Full code
Disposition: Likely discharge home in 24-48
Anticipated Discharge: 24 - 48 hours
Subjective/Interval History
-
Date of Service: March 26, 2025
Objective Data
-
Labs:
Laboratory Results
03/26/25
08:03
WBC 9.2
Hgb 8.7 L
Hct 26.7 L
Plt Count 280
Sodium 142
Potassium 4.4
Chloride 114 H
Carbon Dioxide 22
BUN 29 H
Creatinine 1.7 H
Glucose 114 H
Calcium 8.5
Total Bilirubin 0.5
AST 127 H
ALT 187 H
Alkaline Phosphatase 84
Vital Signs:
Vital Signs
Temp Pulse Resp BP Pulse Ox
97.6 F 63 18 154/51 99
03/26/25 11:18 03/26/25 11:18 03/26/25 11:18 03/26/25 11:18 03/26/25 11:18
I&O
03/25/25 03/26/25 03/27/25
06:59 06:59 06:59
Intake Total 6060 / 6060 1200 / 1200
Balance 6060 / 6060 1200 / 1200
[2025-03-26 15:02] LABS: ACT-LR - POC 327 Seconds (116-155)
--- NOTE | 2025-03-26 15:31 | CM ---
Reviewed chart. Mrs. Holder was transferred to IVU. Met with Mrs. Holder and her daughters to review discharge plans. Daughter states she maybe able to go home soon. Prior to admission Mrs. Holder resides with her daughter in a spilt level home
with two steps o enter. Prior to admission she ambulates in the home without an assisted device. She uses a single point cane in the community. She has a single point cane at home. She has a prescription plan and uses [facility]. Family y was
wondering if any programs available to assist with prescriptions. Gave them the [employer] application to submit. Also gave them the one month free coupon for [employer]. She is current with [facility]. Reviewed [facility] with
them. Medical work-up in progress. The discharge plan is to return home with her daughter and resumption of [facility] when medically stable.
[2025-03-26 16:18] LABS: Glucose - Point of Care 96 mg/dl (70-99)
--- NOTE | 2025-03-26 16:44 | PTCARENOTE ---
Received pt from [facility]. Pt is AAOx3 SR on the monitor Rt Radial TR Band in place pulse ox 99% + PPP. Family @ bedside with pt. Spoke with Dr Chang to restart NSS @ 75ml/HR . Call burton within reach.
--- NOTE | 2025-03-26 16:45 | ITS.CL.PN ---
[facility] - Procedure Note
Procedure
Procedure Note:
CARDIAC CATHETERIZATION REPORT
Date of Procedure: 03/26/2025
Referring: Dr. Derek Up MD
Indication: complete revascularization status post STEMI
PROCEDURE(S)
1. left heart catheterization
2. coronary angiography
3. IVUS OM1
4. PCI with JOSE ANGEL to OM1
ACCESS: 6F right radial artery (closure: radial band)
CATHETERS
1. 6F JR4
2. 6F EBU3.5 guide
MODERATE SEDATION: 35 minutes of moderate sedation was utilized. An independent medical customer service representative was present to assist with and help manage the patient's level of consciousness and physiologic status.
HEMODYNAMIC DATA
LV 157/11 (EDP 22) mmHg
AO 153/56 (mean 89) mmHg
CORONARY ANGIOGRAPHY
Dominance: Right
LM: Large, normal
LAD: Large vessel giving rise to a moderate caliber D1, moderate caliber D2, and wrapping around the apex. There is mild diffuse disease.
LCx: Large vessel giving rise to a large OM1 and small OM2. There is diffuse mild disease in the proximal circumflex. There are tandem focal 80% stenoses in the proximal aspect of the OM1. There is a focal 70% stenosis in the mid LCx just after the
takeoff of the OM1, which is a 2.0 mm vessel.
RCA: Large vessel giving rise to a moderate caliber RPDA and several small RPL branches. There is a widely patent stent in the proximal vessel. There is a focal 50% stenosis in the proximal aspect of the RPDA and otherwise mild diffuse disease.
PCI with JOSE ANGEL to OM1
Heparin was given to achieve ACT greater than 300. Initial lesion preparation was performed with a 2.0 mm semicompliant balloon. IVUS was performed demonstrating a 2.5 mm distal reference vessel diameter and 2.75 mm proximal reference vessel
diameter. Stenting was performed with a [employer] Synergy 2.5 x 23 mm JOSE ANGEL deployed at nominal pressure and postdilated distally with a 2.5 mm NC balloon to 16 tenisha and proximally with a 2.75 mm NC balloon to 16 tenisha. IVUS was repeated
demonstrating full stent expansion and apposition without edge dissection. Final angiographic result was outstanding. The wire and guide were removed. The radial access site was closed with TR band.
RADIATION: dose 511 mGy; DAP 16.7 Gy*cm2; fluoroscopy time 8.4 min
CONCLUSIONS
1. Coronary artery disease disease as described with patent proximal RCA stent and severe tandem stenoses in the large OM1.
2. Mildly elevated LV filling pressure and no aortic stenosis
3. Successful PCI with JOSE ANGEL to OM1 (2.5 x 23 mm [employer] Synergy postdilated distally with a 2.5 mm NC balloon to 16 tenisha and proximally with a 2.75 mm NC balloon to 16 tenisha)
RECOMMENDATIONS
1. Aggressive secondary prevention of coronary artery disease. Will need initiation of PCSK9 inhibitor as an outpatient given rhabdomyolysis in the setting of concomitant statin and ticagrelor use.
2. Continue DAPT with aspirin and ticagrelor until 1 year post STEMI (approximately 02/2025).
Copy to: Dr. Bernadette Yancey DO(PCP)
Signed: Jeffery Bobby MD, PhD
--- NOTE | 2025-03-26 16:59 | W.PN.CD ---
Today's Communication / Plan
-
cont. asa/ticag
plan for d/c tomorrow if renal function stable
Impression / Plan
-
Rhabdomyolysis:
-statin stopped, CK downtrending
-statin should be added to allergy list
CAD:
-recent STEMI with RCA stenting. Successful PCI with DESx1 to LCx today.
-continue ASA and Brilinta. Statin stopped as noted. Continue coreg.
HTN:
-On coreg and nifedipine
-monitor
-had PRN hydralazine as OP per nephro
Dyslipidemia:
-LDL 218 during recent hospitalization, but with statin, patient with elevated LFT's, CPK- so statin and zetia now stopped. Consider PSCK9i in the future.
DM, type II:
-management per primary
-on SGLT2I and insulin
CKD, improving
-creatinine improved this AM s/p IVF, best it's ever been in recent history despite rhabdo
-monitor closely
Data:
Cardiac Cath 02/15/25: Coronary angiography demonstrated culprit 100% thrombotic occlusion in the proximal RCA and nonculprit obstructive disease in the OM 2 and mid left circumflex. She had successful PCI with drug-eluting stent x 1 to proximal RCA.
Echo 02/13/2025: Ejection fraction 55 to 60%, LV wall motion with basal inferoseptal segment and basal inferior segment hypokinesis.
Physical Exam
Vital Signs/Labs
Vital Signs
Temp Pulse Resp BP Pulse Ox
36.3 C 69 20 171/65 98
03/26/25 14:16 03/26/25 16:30 03/26/25 14:16 03/26/25 16:00 03/26/25 16:30
03/25/25 03/26/25 03/27/25
06:59 06:59 06:59
Actual Weight 66.763 kg 67.387 kg
03/26/25 08:03
03/26/25 08:03
PT 15.5 Sec (11.4-14.6) H 03/24/25 06:19
INR 1.17 03/24/25 06:19
Physical Exam
Constitutional: Comfortable
Cardiovascular: Rhythm & rate is regular
Respiratory: Respiratory effort normal
Neuro/Psych: AO x 3
Data Reviewed
-
Date of Service: March 26, 2025
Medical Decision Making: Reviewed Test Results
EKG: Tracing Personally Visualized and interpreted
Echo: Tracing Personally Visualized and interpreted
Labs: Labs Reviewed by me
[2025-03-26 21:11] LABS: Glucose - Point of Care 147 mg/dl (70-99)
[2025-03-26] MEDS: LANTUS 0.1 UNITS SC (21:12)
--- NOTE | 2025-03-26 21:17 | PTCARENOTE ---
Patient received at change of shift resting in the bed. Right radial cath site with gauze and tegaderm C/D/I, radial pulse palpable. Sinus rhythm on telemetry. Oxygen saturation 99-100% on RA. The patient reports mild tenderness at her right radial
puncture but this is presently acceptable to her, the site is C/D/I, no evidence of hematoma. Plan of care discussed with patient and family. Call burton within reach. Care ongoing.
[2025-03-27] VITALS (7 sets, daily range): BP systolic 143–178; BP diastolic 52–70; BMI 27.4
[2025-03-27 04:22] LABS: Glucose - Point of Care 81 mg/dl (70-99)
[2025-03-27 04:40] LABS: Hematocrit 24.1 % (37.0-47.0); Hemoglobin 7.9 g/dL (12.0-16.0); Mean Corp Hgb Conc. 32.8 g/dL (33.0-37.0); Mean Corpuscular Volume 86.4 fL (81.0-99.0); Nucleated Red Blood Cells % 0 %; Platelet Count 243 10^3/uL (130-400); Red Cell Dist. Width 14.8 % (11.5-14.5)
[2025-03-27 05:13] LABS: ALT (SGPT) 148 U/L (0-35); AST (SGOT) 98 U/L (14-36); Albumin 2.8 g/dl (3.5-5.0); Alkaline Phosphatase 77 U/L (38-126); Blood Urea Nitrogen 26 mg/dl (7-17); Calcium 8.2 mg/dl (8.4-10.2); Carbon Dioxide 22 mmol/L (22-30); Chloride 115 mmol/L (98-107); Estimated Creatinine Clearance 30 ml/min; Glucose 75 mg/dl (70-99); Potassium 4.4 mmol/L (3.5-5.1); Sodium 141 mmol/L (135-145); Total Protein 5.7 g/dl (6.3-8.2); eGFR 36.34
[2025-03-27] MEDS: NSS 1000 IV (05:52)
[2025-03-27 07:30] LABS: Glucose - Point of Care 82 mg/dl (70-99)
[2025-03-27] MEDS: BRILINTA 90 MG PO (08:47)
[2025-03-27] MEDS: FARXIGA 10 MG PO (08:47)
[2025-03-27] MEDS: SODIUM BICARBONATE 1300 MG PO (08:48)
[2025-03-27] MEDS: PROCARDIA XL (EXTENDED RELEASE) 30 MG PO (08:48)
[2025-03-27] MEDS: COREG 12.5 MG PO (08:48)
[2025-03-27] MEDS: LOW STRENGTH ASPIRIN 81 MG PO (08:48)
--- NOTE | 2025-03-27 10:23 | W.PN.HOSP.TC ---
Today's Communication/Plan
-
Repeat CPK
Continue IV fluids
DAPT + beta-elvie
OP consideration for PCSK9i
Assessment / Plan
Assessment / Plan
#Statin induced rhabdomyolysis/myositis
#ANGELY on CKD stage III
#Chronic acidemia
-CKD likely associated with diabetic nephropathy, Home regimen includes sodium bicarb tabs
-Developed muscle aches and elevated CK following increase statin dosing for CAD
-Upon arrival CK level 13,000, down trended with IV fluids and discontinuation of statin
-Also developed an ANGELY secondary to myoglobinuria, has also improved with IV fluids
-As of this morning creatinine down to baseline at 1.6�1.7, CK 3658
-Continue maintenance IV fluids, trend BMP, LFTs, and CK level
-Repeat CK in afternoon, discharge once near 1000
#CAD s/p PCI
#Dyslipidemia
-Recent hospitalization for STEMI during which she was started on DAPT with aspirin and Brilinta
-Following stent placement was planned for elective cardiac catheterization and PCI of LCx
-No signs of systolic dysfunction, echocardiogram on recent hospital stay with preserved LVEF
-Cardiology following, planning performed LCx PCI electively on 03/26 while here
-Continue with home beta-elvie, DAPT, SGLT2i
-Does not tolerate statin, consider PCSK9i as OP
-Monitor on telemetry
-LDL goal <70
#Primary hypertension
-Home regimen includes carvedilol and nifedipine
-No known history of hypertensive systemic disease
-Blood pressure well-controlled, as needed hydralazine ordered
#IDDM C/B neuropathy
-Poorly controlled, most recent A1c 9.2%
-Home regimen includes Lantus 30 units nightly, ISS, SGLT2i
-Monitor Accu-Cheks here, glucose goal 140-180
-Should have endocrinology referral at discharge
#Cervical radiculopathy
#MASH
#H/O cardiac arrest/PEA arrest x 2
Diet: Diabetic, 1800 brianne
DVT prophylaxis: SQ heparin
CODE STATUS: Full code
Disposition: Likely discharge home in 24 hours
Anticipated Discharge: Within 24 hours
Subjective/Interval History
-
Date of Service: March 27, 2025
Seen and examined at the bedside. No acute events reported overnight. AFVSS this morning
Creatinine down to 1.5, CK level downtrending to 2530.
Patient states she feels well and denies any new complaint
Objective Data
-
Labs:
Laboratory Results
03/27/25
03:37
WBC 8.9
Hgb 7.9 L
Hct 24.1 L
Plt Count 243
Sodium 141
Potassium 4.4
Chloride 115 H
Carbon Dioxide 22
BUN 26 H
Creatinine 1.5 H
Glucose 75
Calcium 8.2 L
Total Bilirubin 0.5
AST 98 H
ALT 148 H
Alkaline Phosphatase 77
Vital Signs:
Vital Signs
Temp Pulse Resp BP Pulse Ox
98.3 F 74 18 174/63 99
03/27/25 07:30 03/27/25 08:48 03/27/25 07:30 03/27/25 08:48 03/27/25 07:30
I&O
03/26/25 03/27/25 03/28/25
06:59 06:59 06:59
Intake Total 1200 / 1200 1550 / 1550
Output Total 1000 / 1000
Balance 1200 / 1200 550 / 550
Review of Systems
-
History Source: Patient
All other systems: Reviewed and negative
Physical Exam
-
General: Well Developed, No Apparent Distress and Obese
HEENT: Normocephalic, Atraumatic and Moist Mucous Membranes
Respiratory: Clear to Auscultation and Non Labored Respirations; Negative Accessory Resp Muscle Use
Cardiac: Regular Rhythm and S1/S2; Negative Murmur, Rub or Gallop
GI: Soft, Nontender, Nondistended and Normal Bowel Sounds
Musculoskeletal: No Clubbing, No Cyanosis and No Edema
Skin: Warm and Dry; Negative Rash
Neuro: AO x 3, Nonfocal/Grossly Intact and Central Nerve's Intact
Psych: Calm
Data Reviewed
-
Labs: Labs Reviewed by me, Discussed with Patient and Discussed with Family
--- NOTE | 2025-03-27 10:42 | W.PN.CD ---
Today's Communication / Plan
-
continue current medications
ok to discharge from cardiac perspective.
Impression / Plan
-
Rhabdomyolysis:
-statin stopped, CK downtrending
-statin should be added to allergy list
CAD:
-recent STEMI with RCA stenting. Successful PCI with DESx1 to LCx 03/26/25.
-continue ASA and Brilinta. Statin stopped as noted. Continue coreg.
HTN:
-On coreg and nifedipine
-monitor
-had PRN hydralazine as OP per nephro
Dyslipidemia:
-LDL 218 during recent hospitalization, but with statin, patient with elevated LFT's, CPK- so statin and zetia now stopped. Add PSCK9i in op setting.
DM, type II:
-management per primary
-on SGLT2I and insulin
CKD, improving
-creatinine improved this AM s/p IVF, best it's ever been in recent history despite rhabdo
-monitor closely
Data:
Cardiac Cath 02/15/25: Coronary angiography demonstrated culprit 100% thrombotic occlusion in the proximal RCA and nonculprit obstructive disease in the OM 2 and mid left circumflex. She had successful PCI with drug-eluting stent x 1 to proximal RCA.
Echo 02/13/2025: Ejection fraction 55 to 60%, LV wall motion with basal inferoseptal segment and basal inferior segment hypokinesis.
Physical Exam
Vital Signs/Labs
Vital Signs
Temp Pulse Resp BP Pulse Ox
98.3 F 74 18 174/63 99
03/27/25 07:30 03/27/25 08:48 03/27/25 07:30 03/27/25 08:48 03/27/25 08:30
03/26/25 03/27/25 03/28/25
06:59 06:59 06:59
Actual Weight 148 lb 9 oz 149 lb 7.574 oz
03/27/25 03:37
03/27/25 03:37
PT 15.5 Sec (11.4-14.6) H 03/24/25 06:19
INR 1.17 03/24/25 06:19
Physical Exam
Constitutional: No acute distress
Cardiovascular: Rhythm & rate is regular, Pedal edema is absent, JVD pressure is normal, Systolic murmur absent and Diastolic murmur absent
Respiratory: Respiratory effort normal, Lungs clear to auscul., Wheeze Absent, Crackles Absent and Rhonchi Absent
Neuro/Psych: AO x 3
Other: Cath Site (RRA site familia rose )
Data Reviewed
-
Date of Service: March 27, 2025
[2025-03-27 13:19] LABS: Glucose - Point of Care 141 mg/dl (70-99)
--- NOTE | 2025-03-27 14:32 | W.DCSUMMARY ---
Addendum entered and electronically signed by Alexis Chang DO 03/27/25 14:54:
Error in dictation: Stent was placed into the OM1 branch, not within the main trunk of the LCx.
Original Note:
Discharge Summary
Discharge Data
Date of Admission: 03/23/25
Date of Discharge: 03/27/25
Total time spent discharging patient (in min): 36
-
Pending Results: No
Hospital Course
Discharging Physician : Alexis Chang DO
Disposition : Home
Principal Discharge diagnosis :
Statin-induced rhabdomyolysis/myositis
Left circumflex artery angioplasty and stent
Acute kidney injury
Chronic Discharge diagnosis :
CAD s/p LAD PCI
IDDM with neuropathy
CKD stage III
STEPHENS
Cervical radiculopathy
Carpal tunnel syndrome
History of PEA cardiac arrest x 2
Hospital Course :
74-year-old female that presented to the hospital with muscle aches and pains following recent hospitalization for STEMI and LAD stent for which she was started on guideline directed medical therapy that included a statin. Upon arrival found to
have elevated transaminases and significantly high CK level at 13,000. Also demonstrated to have renal insufficiency. Home statin therapy was discontinued and she was started on IV fluids with resolution of her rhabdomyolysis and acute kidney
injury. CK level down to 1300 on day of discharge with renal function at baseline. She was seen by cardiology here who had initial plans for elective left circumflex stent as an outpatient though due to recurrent hospitalization was placed here.
Stent was placed with interventional cardiology on 03/26. Was continued on her GDMT with DAPT that included Brilinta, beta-elvie, SGLT2 inhibitor. Was recommended to follow-up after discharge for consideration of PCSK9 inhibitor.
Consultants:
Onion Topper: Jeffery Em MD
Important imaging findings : N/A
Procedure findings :
Left heart cath with coronary angiography (03/26/2025)
HEMODYNAMIC DATA:
LV 157/11 (EDP 22) mmHg
AO 153/56 (mean 89) mmHg
CONCLUSIONS
1. Coronary artery disease disease as described with patent proximal RCA stent and severe tandem stenoses in the large OM1.
2. Mildly elevated LV filling pressure and no aortic stenosis
3. Successful PCI with JOSE ANGEL to OM1 (2.5 x 23 mm [employer] Synergy postdilated distally with a 2.5 mm NC balloon to 16 tenisha and proximally with a 2.75 mm NC balloon to 16 tenisha)
Follow-up:
Family doctor within 1 week of discharge
Onion Topper on 04/06/2025
Discharge Plan
-
Patient Disposition: Home (Routine Discharge)
Discharge Diagnosis/Procedures: Angioplasty and stent to Left Circumflex artery
Rhabdomyolysis/myositis due to statin
Acute kidney injury
Condition: Fair
Diet: Low Cholesterol and Diabetic, Carb Controlled
Additional Diets: Encourage 64 ounce of water intake
Activity: As tolerated
Blood Work: BMP in 5 to 7 days after discharge
Other Services: Cardiac Rehab
Stand Alone Forms: DC Instructions- Cath/EP Lab
Referrals:
[facility] [Outside] - 04/20/25 1:00 pm
Referral Note: Cardiac Rehab Orientation appointment and� First Exercise appointment is on 04/20/25 at 1pm.
The Cardiac Rehab gym is located on the first floor of the [facility].
[facility] [Outside]
Debora Porter NP [Specified Professional Personl, Cardiology] - 04/06/25 3:20 pm
Bernadette Yancey DO [Family Provider, Family Practice]
Additional Discharge Medication Instructions: Decrease Lantus insulin to 10 units nightly, continue with insulin sliding scale as previously prescribed
Continue aspirin once daily and Brilinta twice daily
Continue carvedilol twice daily
Continue dapagliflozin daily
Do not take any statin medications. Talk to your family doctor or siebel solution architect about any type of medication called a PCSK9 inhibitor
Prescriptions:
New
insulin glargine [Lantus Solostar U-100 Insulin] 100 unit/mL (3 mL) insulin pen
10 unit SC QPM Qty: 15 0RF
Continued
carvedilol [Coreg] 12.5 mg Tablet
12.5 mg PO BID
dapagliflozin propanediol 10 mg Tablet
10 mg PO DAILY Qty: 30 0RF
aspirin 81 mg Tablet,Chewable
81 mg PO DAILY Qty: 30 0RF
ticagrelor [Brilinta] 90 mg tablet
90 mg PO BID Qty: 60 0RF
insulin aspart U-100 [Novolog FlexPen U-100 Insulin] 100 unit/mL (3 mL) Insulin Pen
SC ACHS
Rx Instructions:
dose per sliding scale >150- 2 units and every 25 add 1 unit (175)
nifedipine [Procardia XL] 30 mg Tablet Extended Release 24hr
30 mg PO BID
sodium bicarbonate 650 mg Tablet
1,300 mg PO BID
Discontinued
insulin glargine [Lantus Solostar U-100 Insulin] 100 unit/mL (3 mL) Insulin Pen
30 unit SC HS
Discharge Orders:
Discharge Patient (As Directed); Ordered 03/27/25
Ordered By: Alexis Chang
Care Plan Goals
Care Plan Goals:
Problem: Readiness for enhanced knowledge related to diagnosis and treatment plan
Goal: Understand your diagnosis and treatment plan needs, including medications if applicable.
Instructions: Know your diagnosis, underlying causes and treatment plan options, including medications if applicable. Consult with your health care team to learn about your diagnosis and treatment plan, including medications if applicable.
Discharge Date and Time
Print Language: [place] CITIZEN
--- NOTE | 2025-03-27 15:31 | PTCARENOTE ---
D/C instructions given to patient and daughter, both verbalizes understanding. INT D/C'd, telemetry D/C'd, personal belongings packed and sent home with patient. D/C to home via wc accompanied by staff.
== END 2025-03-27 15:42 | disposition home or self-care (01) | DRG 322 ==
LOC: IVU 17:32
PROVIDERS: Emergency Medicine; Hospitalist; Student in an Organized Health Care Education/Training Program; ADMITTING PHYSICIAN Hospitalist; ATTENDING PHYSICIAN Internal Medicine; EMERGENCY PHYSICIAN Emergency Medicine; FAMILY PHYSICIAN Family Medicine; OTHER PHYSICIAN Internal Medicine Cardiovascular Disease
PROC: B2111ZZ Fluoroscopy of Multiple Coronary Arteries using Low Osmolar Contrast (ICD-10-PCS; 2025-03-26)
PROC: B2151ZZ Fluoroscopy of Left Heart using Low Osmolar Contrast (ICD-10-PCS; 2025-03-26)
PROC: 4A023N7 Measurement of Cardiac Sampling and Pressure, Left Heart, Percutaneous Approach (ICD-10-PCS; 2025-03-26)
PROC: 027034Z Dilation of Coronary Artery, One Artery with Drug-eluting Intraluminal Device, Percutaneous Approach (ICD-10-PCS; 2025-03-26)
DX: I25.10 Atherosclerotic heart disease of native coronary artery without angina pectoris (principal); M62.82 Rhabdomyolysis; N17.9 Acute kidney failure, unspecified; E87.20 Acidosis, unspecified; E87.5 Hyperkalemia; N18.30 Chronic kidney disease, stage 3 unspecified; I12.9 Hypertensive chronic kidney disease with stage 1 through stage 4 chronic kidney disease, or unspecified chronic kidney disease; E11.22 Type 2 diabetes mellitus with diabetic chronic kidney disease; E11.40 Type 2 diabetes mellitus with diabetic neuropathy, unspecified; Z79.4 Long term (current) use of insulin; Z79.02 Long term (current) use of antithrombotics/antiplatelets; Z79.82 Long term (current) use of aspirin; I25.2 Old myocardial infarction
CPT/HCPCS: 80053; 81003; 81015; 82550; 82962; 83036; 85025; 85027; 85347; 85610; 92978; 93005; 93458; 96360; 99152; 99153; 99284; C1725; C1753; C1769; C1874; C1894; C9600; Q9967

== ENCOUNTER 2025-04-02 13:46 | Outpatient (RCR) | payer OTHER, SELFPAY ==
[2025-03-19 13:45] VITALS: BP 150/58
[2025-03-19] MEDS: FERAHEME 117 MG IV (14:16)
[2025-03-19 15:14] VITALS: BP 152/63
[2025-04-02 13:53] VITALS: BP 154/54
[2025-04-02] MEDS: FERAHEME 117 MG IV (14:24)
[2025-04-02 15:13] VITALS: BP 161/56
== END 2025-04-05 11:05 | disposition home or self-care (01) ==
LOC: OID 13:46
PROVIDERS: ATTENDING PHYSICIAN Internal Medicine; FAMILY PHYSICIAN Family Medicine
DX: D64.9 Anemia, unspecified (principal); N17.9 Acute kidney failure, unspecified; N18.32 Chronic kidney disease, stage 3b; R80.9 Proteinuria, unspecified
CPT/HCPCS: 96365; Q0138

== ENCOUNTER 2025-04-20 16:37 | Outpatient (RCR) | payer OTHER, SELFPAY ==
[2025-04-20 14:07] LABS: Glucose - Point of Care 219 mg/dl (70-99)
[2025-04-20 14:34] LABS: Glucose - Point of Care 211 mg/dl (70-99)
== END 2025-04-23 16:31 | disposition home or self-care (01) ==
LOC: CRHB 16:37
PROVIDERS: ATTENDING PHYSICIAN Internal Medicine Cardiovascular Disease
DX: I25.10 Atherosclerotic heart disease of native coronary artery without angina pectoris (principal); Z95.5 Presence of coronary angioplasty implant and graft
CPT/HCPCS: 82962; G0422; G0423